=== PATIENT | female | born 1960 | race Caucasian/White ===

== ENCOUNTER → 2017-01-19 | Outpatient (CLI) | payer OTHER ==
[~2017-01-19] MED LIST: ACET-1311 PO; ATV5 PO; GUAI100L; SUMA50TA15 PO; THROLOZ41; TMF75 PO; excedrin migraine PO
[2017-01-19 10:50] LABS: HEMATOCRIT 40.1 % (37-47); MEAN CELL VOLUME 88.3 fL (80-100); MEAN CORPUSCULAR HEMOGLOBIN 30.2 pg (25-34); MEAN CORPUSCULAR HGB CONC 34.2 g/dl (32-36); MEAN PLATELET VOLUME 10.8 fL (7.4-10.4); PLATELET COUNT 197 K/uL (130-400); RED BLOOD COUNT 4.54 M/uL (4.2-5.4); WHITE BLOOD COUNT 4.36 K/uL (4.8-10.8)
[2017-01-19 11:16] LABS: BLOOD UREA NITROGEN 23 mg/dl (7-18); BUN/CREATININE RATIO 30.2 (10-20); CALCIUM 9.1 mg/dl (8.5-10.1); CARBON DIOXIDE 32 mmol/L (21-32); CHLORIDE 105 mmol/L (98-107); CREATININE 0.77 mg/dl (0.60-1.20); GLUCOSE 97 mg/dl (70-99); POTASSIUM 4.2 mmol/L (3.5-5.1); SODIUM 143 mmol/L (136-145)
== END ==
LOC: C.LABBC 08:47
PROVIDERS: ATTEND Family Medicine
DX: R42 Dizziness and giddiness (principal); I10 Essential (primary) hypertension

== ENCOUNTER → 2017-04-25 | Outpatient (CLI) | payer OTHER | END | disposition home or self-care (01) | LOC: C.LAB1850 16:15 | PROVIDERS: ATTEND Obstetrics & Gynecology | DX: N92.0 Excessive and frequent menstruation with regular cycle (principal) ==

== ENCOUNTER → 2017-04-25 | Outpatient (CLI) | payer OTHER | END | disposition home or self-care (01) | LOC: C.PAPS 08:06 | PROVIDERS: ATTEND Obstetrics & Gynecology | DX: Z01.419 Encounter for gynecological examination (general) (routine) without abnormal findings (principal) ==

== ENCOUNTER → 2017-07-24 | Outpatient (CLI) | payer OTHER ==
[2017-07-24 11:19] LABS: BLOOD UREA NITROGEN 22 mg/dl (7-18); BUN/CREATININE RATIO 26.5 (10-20); CALCIUM 9.2 mg/dl (8.5-10.1); CARBON DIOXIDE 31 mmol/L (21-32); CHLORIDE 106 mmol/L (98-107); CREATININE 0.83 mg/dl (0.60-1.20); GLUCOSE 88 mg/dl (70-99); POTASSIUM 3.6 mmol/L (3.5-5.1); SODIUM 144 mmol/L (136-145)
[2017-07-24 11:24] LABS: CHOLESTEROL 211 mg/dl (0-200); CHOLESTEROL/HDL RATIO 3.3; HDL CHOLESTEROL 64 mg/dl; LDL CHOLESTEROL CALCULATED 127 mg/dl; TRIGLYCERIDES 98 mg/dl (0-150); VERY LOW DENSITY LIPOPROT CALC 20 mg/dl
== END | disposition home or self-care (01) ==
LOC: C.LAB1850 10:01
PROVIDERS: ATTEND Family Medicine
DX: Z13.220 Encounter for screening for lipoid disorders (principal); I10 Essential (primary) hypertension

== ENCOUNTER → 2017-08-09 | Outpatient (CLI) | payer OTHER ==
--- NOTE | 2017-08-12 12:36 | MAMMOGRAPHY REPORT ---
BILATERAL DIGITAL SCREENING MAMMOGRAM TOMOSYNTHESIS WITH CAD: 08/09/2017 CLINICAL HISTORY: Routine screening. Patient has no complaints. TECHNIQUE: Breast tomosynthesis in addition to standard 2D mammography was performed. Current study was also evaluated with a Computer Aided Detection (CAD) system. COMPARISON: Comparison is made to exams dated: 07/07/2008, 04/09/2014 mammogram, 11/12/2012 mammogram, mammogram, and 04/13/2015 mammogram - [facility]. BREAST COMPOSITION: There are scattered areas of fibroglandular density in both breasts. FINDINGS: No suspicious masses, calcifications, or areas of architectural distortion are noted in ei ther breast. There has been no significant interval change compared to prior exams. Nodularity in th e left lateral breast middle depth is stable compared to prior exams including the 2013 exam. IMPRESSION: ACR BI-RADS CATEGORY 2: BENIGN There is no mammographic evidence of malignancy. A 1 year screening mammogram is recommended. The pa tient will receive written notification of the results. Approximately 10% of breast cancers are not detected with mammography. A negative mammographic report should not delay biopsy if a clinically suggestive mass is present. Alexsandra Little M.D. /:08/09/2017 15:17:15 Thread Cutter: Anamaria MCIHEL(Jeanette)(Jeanne)(ANDRES), [facility] letter sent: Normal 1/2 BI-RADS Code: ACR BI-RADS Category 2: Benign
== END | disposition home or self-care (01) ==
LOC: C.MAMM 09:04
PROVIDERS: ATTEND Family Medicine
DX: Z12.31 Encounter for screening mammogram for malignant neoplasm of breast (principal)

== ENCOUNTER 2018-03-25 08:39 | Emergency (ER) | payer OTHER ==
[~2018-03-25] VITALS: Ht 157.5 cm; Wt 56.2 kg
[2018-03-25 08:45] VITALS: TEMP 36.8; Ht 157.5 cm; Wt 56.2 kg
[2018-03-25] MEDS ORDERED: ONDANSETRON INJ 2 MG/ML 2 ML VIAL IV STA (08:57)
[2018-03-25] MEDS ORDERED: ALBUTEROL HFA 8 GM INHALER INH STA (08:57)
[2018-03-25] MEDS ORDERED: HYDROCODONE/HOMATROPINE SYRUP 5MG/1.5MG 5ML UDP PO STA ×2 (08:57→09:36)
[2018-03-25] MEDS ORDERED: ALBUTEROL 0.083% NEBU SOLN 3 ML VIAL INH STA (08:57)
[2018-03-25] MEDS ORDERED: KETOROLAC TROMETHAMINE 30 MG/ML VIAL IV STA (08:57)
[2018-03-25] MEDS ORDERED: SODIUM CHLORIDE 0.9% 1000ML 1,000 ML IV STA (08:57)
[2018-03-25] MEDS ORDERED: METHYLPREDNISOLONE 125 MG VIAL IV STA (08:57)
--- NOTE | 2018-03-25 08:57 | EMERGENCY ROOM VISIT NOTE ---
History Report prepared by Rula: Fredi Mcintyre Under the Supervision of: Dr. Thong Gallegos M.D. First contact with patient: 08:50 Chief Complaint: COUGH Stated Complaint: COUGH,SORE THROAT,ACHY BODY History of Present Illness The patient is a 57 year old female who presents to the Emergency Room with complaints of a persistent cough that she has been experiencing for the past 5 days. She is also complaining of diffuse body aches. The patient did visit with her primary care office yesterday who prescribed Tessalon Pearls. She notes that she is experiencing some chest pain secondary to the cough. Her PCP visit resulted a negative strep test. Source of History: patient Onset: 5 days Position: chest Quality: other (Cough) Timing: other (Persistent) Associated Symptoms: + chest pain Review of Systems See HPI for pertinent positives & negatives. A total of 10 systems reviewed and were otherwise negative. Past Medical & Surgical Medical Problems: (1) Migraine (2) Respiratory failure, acute Surgical Problems: (1) H/O colonoscopy (2) H/O tubal ligation Family History Diabetes mellitus FHx: cancer FHx: heart disease Social History Smoking Status: Never Smoker Alcohol Use: occasionally Marital Status: Housing Status: lives with family Occupation Status: unemployed Current/Historical Medications Scheduled Azithromycin (Zithromax), 250 MG PO DAILY Benzonatate (Tessalon Perles), 200 MG PO TID Gabapentin (Neurontin), 100 MG PO BID Hydrochlorothiazide (Hydrochlorothiazide), 25 MG PO DAILY Lorazepam (Ativan), 1 MG PO HS Prednisone (Prednisone Tab), 0 PO DAILY Sumatriptan Succinate (Imitrex), 50 MG PO PRN Scheduled PRN Hydrocodone W/ Homatropine (Hycodan 5/1.5MG 5 Ml), 5 ML PO HS PRN for Cough Allergies Coded Allergies: Iodinated Diagnostic Agents (Verified Allergy, Unknown, Unknown, 03/25/18) Physical Exam Vital Signs Date Time Temp Pulse Resp B/P (MAP) Pulse Ox O2 Delivery O2 Flow Rate FiO2 03/25/18 11:45 71 20 99/55 94 03/25/18 10:30 96 Nasal Cannula 2.0 03/25/18 10:06 94 Room Air 03/25/18 09:57 80 18 111/64 96 03/25/18 09:41 73 03/25/18 09:40 94 Room Air 03/25/18 09:40 94 Room Air 03/25/18 08:45 36.8 68 20 142/84 95 Room Air Physical Exam GENERAL: Awake, alert, well-appearing, in no acute distress HENT: Normocephalic, atraumatic. Throat is injected. EYES: Normal conjunctiva. Sclera non-icteric. NECK: Supple. No nuchal rigidity. FROM. No JVD. RESPIRATORY: Clear to auscultation. CARDIAC: Regular rate, normal rhythm. Extremities warm and well perfused. Pulses equal. ABDOMEN: Soft, non-distended. No tenderness to palpation. No rebound or guarding. No masses. RECTAL: Deferred. MUSCULOSKELETAL: Chest examination reveals no tenderness. The back is symmetrical on inspection without obvious abnormality. There is no CVA tenderness to palpation. No joint edema. LOWER EXTREMITIES: Calves are equal size bilaterally and non-tender. No edema. No discoloration. NEURO: Normal sensorium. No sensory or motor deficits noted. SKIN: No rash or jaundice noted. Medical Decision & Procedures ER Provider Diagnostic Interpretation: Radiology results as stated below per my review and radiologist interpretation: CHEST ONE VIEW PORTABLE HISTORY: Atypical CHEST PAIN COMPARISON: Chest 03/01/2016. FINDINGS: The lungs are clear. Cardiac silhouette is normal in size. No pleural effusions. No pneumothorax. IMPRESSION: No acute process. Electronically signed by: Shad Garcia M.D. 03/25/2018 9:18 AM Dictated Date/Time: 03/25/2018 9:16 AM Laboratory Results 03/25/18 09:18 Red Blood Count 4.60, Mean Corpuscular Volume 88.3, Mean Corpuscular Hemoglobin 30.2, Mean Corpuscular Hemoglobin Concent 34.2, Mean Platelet Volume 10.0, Neutrophils (%) (Auto) 71.8, Lymphocytes (%) (Auto) 18.8, Monocytes (%) (Auto) 7.5, Eosinophils (%) (Auto) 1.5, Basophils (%) (Auto) 0.1, Neutrophils # (Auto) 5.10, Lymphocytes # (Auto) 1.34, Monocytes # (Auto) 0.53, Eosinophils # (Auto) 0.11, Basophils # (Auto) 0.01 03/25/18 09:18 Test 03/25/18 09:18 03/25/18 09:40 03/25/18 10:30 White Blood Count 7.11 K/uL (4.8-10.8) Red Blood Count 4.60 M/uL (4.2-5.4) Hemoglobin 13.9 g/dL (12.0-16.0) Hematocrit 40.6 % (37-47) Mean Corpuscular Volume 88.3 fL (80-100) Mean Corpuscular Hemoglobin 30.2 pg (25-34) Mean Corpuscular Hemoglobin Concent 34.2 g/dl (32-36) Platelet Count 204 K/uL (130-400) Mean Platelet Volume 10.0 fL (7.4-10.4) Neutrophils (%) (Auto) 71.8 % Lymphocytes (%) (Auto) 18.8 % Monocytes (%) (Auto) 7.5 % Eosinophils (%) (Auto) 1.5 % Basophils (%) (Auto) 0.1 % Neutrophils # (Auto) 5.10 K/uL (1.4-6.5) Lymphocytes # (Auto) 1.34 K/uL (1.2-3.4) Monocytes # (Auto) 0.53 K/uL (0.11-0.59) Eosinophils # (Auto) 0.11 K/uL (0-0.5) Basophils # (Auto) 0.01 K/uL (0-0.2) RDW Standard Deviation 42.4 fL (36.4-46.3) RDW Coefficient of Variation 13.1 % (11.5-14.5) Immature Granulocyte % (Auto) 0.3 % Immature Granulocyte # (Auto) 0.02 K/uL (0.00-0.02) Anion Gap 6.0 mmol/L (3-11) Est Creatinine Clear Calc Drug Dose 74.2 ml/min Estimated GFR () 113.9 Estimated GFR (Non- 98.3 BUN/Creatinine Ratio 28.4 (10-20) Calcium Level 8.4 mg/dl (8.5-10.1) Total Bilirubin 0.5 mg/dl (0.2-1) Direct Bilirubin 0.1 mg/dl (0-0.2) Aspartate Amino Transf (AST/SGOT) 19 U/L (15-37) Alanine Aminotransferase (ALT/SGPT) 25 U/L (12-78) Alkaline Phosphatase 78 U/L (45-117) Total Creatine Kinase 105 U/L (26-192) Creatine Kinase MB 1.9 ng/ml (0.5-3.6) Creatine Kinase MB Ratio 0.0 (0-3.0) Troponin I < 0.015 ng/ml (0-0.045) Total Protein 6.8 gm/dl (6.4-8.2) Albumin 3.4 gm/dl (3.4-5.0) Lipase 185 U/L (73-393) Influenza Type A Antigen Neg for Influ A (NEG) Influenza Type B Antigen Neg for Influ B (NEG) Labs reviewed by ED physician. Medications Administered Medications (Trade) Dose Ordered Sig/Carlo Route Start Time Stop Time Status Last Admin Dose Admin Albuterol Sulfate (Ventolin 0.083% 2.5MG/3ML Neb) 2.5 mg NOW STAT INH 03/25/18 08:57 03/25/18 09:00 DC 03/25/18 09:31 2.5 MG Hydrocodone Bit/ Homatropine Methylb (Hycodan Syrup) 5 ml NOW STAT PO 03/25/18 08:57 03/25/18 09:00 DC 03/25/18 09:34 5 ML Albuterol (Ventolin Hfa Inhaler) 2 puffs NOW STAT INH 03/25/18 08:57 03/25/18 09:00 DC 03/25/18 09:32 2 PUFFS Methylprednisolone Sodium Succinate (Solu-Medrol IV) 125 mg NOW STAT IV 03/25/18 08:57 03/25/18 09:00 DC 03/25/18 09:32 125 MG Ketorolac Tromethamine (Toradol Inj) 30 mg NOW STAT IV 03/25/18 08:57 03/25/18 09:00 DC 03/25/18 09:34 30 MG Ondansetron HCl (Zofran Inj) 4 mg NOW STAT IV 03/25/18 08:57 03/25/18 09:00 DC 03/25/18 09:34 4 MG Sodium Chloride 1,000 ml @ 999 mls/hr Q1H1M STAT IV 03/25/18 08:57 03/25/18 09:57 DC 03/25/18 09:30 999 MLS/HR Azithromycin (Zithromax Tab) 500 mg NOW ONCE PO 03/25/18 09:45 03/25/18 09:46 DC 03/25/18 09:55 500 MG Hydrocodone Bit/ Homatropine Methylb (Hycodan Syrup) 5 ml NOW STAT PO 03/25/18 09:36 03/25/18 09:38 DC 03/25/18 09:55 5 ML ECG Per My Interpretation Indication: chest pain, SOB/dyspnea (COUGH) Rate (beats per minute): 60 Rhythm: normal sinus Findings: other (No KATE/STD) ED Course 0852: Past medical records reviewed. The patient was evaluated in room B6. A complete history and physical examination was performed. 0857: Ordered Sodium Chloride 1000 mL @ 999 mL/hr IV, Zofran 4 mg IV, Toradol 30 mg IV, Solu-Medrol 125 mg IV, Albuterol 2 puffs INH, Hycodan Syrup 5 mL PO, Albuterol Sulfate 2.5 mg INH. 0936: Ordered Hydrocodone Bit 5 mL PO. 0945: Ordered Azithromycin 500 mg PO. 1144: Upon reexamination the patient is resting in bed. I discussed results and treatment plan with the patient. She verbalizes agreement and understanding. The patient is ready for discharge. Medical Decision Differential diagnosis: Etiologies such as infections, reactive airway disease, pneumonia, pneumothorax , COPD, CHF, cardiac ischemia, pulmonary embolism, musculoskeletal, gastrointestinal, as well as others were entertained. This is a 57-year-old female presents emergency department with cough. The patient does have heavy coughing. She was given a breathing treatment here in the emergency department and started on Solu-Medrol. This resulted in much improvement in patient's symptoms. She does not have an elevation in her white blood cell count on her chest x-ray shows no evidence of pneumonia. She was started on Z-Solis and will follow up with her primary care physician. Patient was also given an albuterol inhaler to use twice every 6 hours. Patient and were in agreement with the treatment plan. Patient was also given Hycodan for the cough. Blood Pressure Screening Patient's blood pressure: Elevated blood pressure Impression Primary Impression: Acute bronchitis Scribe Attestation The scribe's documentation has been prepared under my direction and personally reviewed by me in its entirety. I confirm that the note above accurately reflects all work, treatment, procedures, and medical decision making performed by me. Departure Information Dispostion Home / Self-Care Prescriptions Hydrocodone W/ Homatropine (HYCODAN 5/1.5MG 5 ML) 1 Syp Syp 5 ML PO HS Y for Cough, #120 ML Prov: Thong Gallegos MD 03/25/18 Azithromycin (ZITHROMAX) 250 Mg Tab 250 MG PO DAILY, #4 TAB Prov: Thong Gallegos MD 03/25/18 Prednisone (Prednisone Tab) 20 Mg Tab 0 PO DAILY, #7 TAB 2 TABS DAILY FOR 2 DAYS, THEN 1 TAB DAILY FOR 2 DAYS, THEN 1/2 TAB DAILY FOR 2 DAYS. Prov: Thong Gallegos MD 03/25/18 Referrals Dasia Medrano MD (PCP) Forms HOME CARE DOCUMENTATION FORM, IMPORTANT VISIT INFORMATION Patient Instructions My [facility] Additional Instructions Use inhaler twice every 6 hours You received narcotic or benzodiazepene medication while in the emergency room today. This is an addictive medication that may cause drowziness as well as constipation. Do not drive, operate heavy machinery, or drink alcohol under the influence of this medication. You have been examined and treated today on an emergency basis only. This is not a substitute for, or an effort to provide, complete comprehensive medical care. It is impossible to recognize and treat all injuries or illnesses in a single emergency department visit. It is therefore important that you follow up closely with Dr Medrano. Call as soon as possible for an appointment. Thank you for your time and consideration. I look forward to speaking with you again soon. Please don't hesitate to call us if you have any questions. Problem Qualifiers Primary Impression: Acute bronchitis Bronchitis organism: unspecified organism Qualified Codes: J20.9 - Acute bronchitis, unspecified
--- NOTE | 2018-03-25 09:19 | DIAGNOSTIC IMAGING REPORT ---
CHEST ONE VIEW PORTABLE HISTORY: Atypical CHEST PAIN COMPARISON: Chest 03/01/2016. FINDINGS: The lungs are clear. Cardiac silhouette is normal in size. No pleural effusions. No pneumothorax. IMPRESSION: No acute process. Electronically signed by: Shad Garcia M.D. 03/25/2018 9:18 AM Dictated Date/Time: 03/25/2018 9:16 AM
[2018-03-25 09:30] LABS: BASO % 0.1 %; BASO ABS # 0.01 K/uL (0-0.2); EOS % 1.5 %; EOS ABS # 0.11 K/uL (0-0.5); HEMATOCRIT 40.6 % (37-47); HEMOGLOBIN 13.9 g/dL (12.0-16.0); IG# 0.02 K/uL (0.00-0.02); LYMPH % 18.8 %; LYMPH ABS # 1.34 K/uL (1.2-3.4); MEAN CELL VOLUME 88.3 fL (80-100); MEAN CORPUSCULAR HEMOGLOBIN 30.2 pg (25-34); MEAN CORPUSCULAR HGB CONC 34.2 g/dl (32-36); MONO % 7.5 %; MONO ABS # 0.53 K/uL (0.11-0.59); NEUT % 71.8 %; PLATELET COUNT 204 K/uL (130-400); RED CELL DISTRIBUTION WIDTH CV 13.1 % (11.5-14.5); RED CELL DISTRIBUTION WIDTH SD 42.4 fL (36.4-46.3); WHITE BLOOD COUNT 7.11 K/uL (4.8-10.8)
[2018-03-25] MEDS ORDERED: GABA-112 PO (09:31)
[2018-03-25] MEDS ORDERED: ATV/1 PO (09:31)
[2018-03-25] MEDS ORDERED: BENZ200C59 PO (09:31)
[2018-03-25] MEDS ORDERED: HYDR25TA5 PO (09:36)
[2018-03-25] MEDS ORDERED: AZITHROMYCIN 250 MG TAB PO ONE (09:45)
[2018-03-25 10:10] LABS: GLUCOSE 93 mg/dl (70-99)
[2018-03-25 10:11] LABS: BLOOD UREA NITROGEN 19 mg/dl (7-18); CREATININE 0.67 mg/dl (0.60-1.20)
[2018-03-25 10:14] LABS: CALCIUM 8.4 mg/dl (8.5-10.1); CARBON DIOXIDE 29 mmol/L (21-32); POTASSIUM 3.5 mmol/L (3.5-5.1); SODIUM 142 mmol/L (136-145); TOTAL PROTEIN 6.8 gm/dl (6.4-8.2)
[2018-03-25 10:15] LABS: ALBUMIN 3.4 gm/dl (3.4-5.0); ALKALINE PHOSPHATASE 78 U/L (45-117); ALT/SGPT 25 U/L (12-78); AST/SGOT 19 U/L (15-37); CKMB 1.9 ng/ml (0.5-3.6); LIPASE 185 U/L (73-393)
[2018-03-25 10:20] LABS: INFLUENZA B ANTIGEN Neg for Influ B (NEG)
[2018-03-25 10:30] VITALS: O2SAT 96
[2018-03-25] MEDS ORDERED: HYDR5SYP11 PO (11:30)
[2018-03-25] MEDS ORDERED: AZIT-60 PO (11:30)
[2018-03-25] MEDS ORDERED: PRED20TA2 PO (11:30)
[2018-03-25 11:45] VITALS: BP 99/55; PULSE 71; O2SAT 94
--- NOTE | 2018-03-25 11:46 | Pharmacy Progress Note ---
ED Pharmacist Progress Note Date of Service: March 25, 2018. Received call from outpatient pharmacist (Dorinda) requesting clarification on quantity dispensed on hydrocodone/homatropine. Requested decreasing quantity dispensed to 7 day supply (7 days x5 mL/day = 35 mL). I spoke with Dr. Gallegos , who authorized decreasing qty dispensed to 7 days supply. I counseled that Dorinda could decrease to dispensing 35 mL.
== END 2018-03-25 11:46 | disposition home or self-care (01) ==
LOC: C.EDB 08:40
DX: J20.9 Acute bronchitis, unspecified (principal); Z98.51 Tubal ligation status; Z83.3 Family history of diabetes mellitus; Z80.9 Family history of malignant neoplasm, unspecified; Z79.899 Other long term (current) drug therapy; Z91.041 Radiographic dye allergy status

== ENCOUNTER 2020-09-21 11:20 | Inpatient (IN) ==
[2020-09-21] MEDS ORDERED: SODIUM CHLORIDE 0.9% 1000ML 2,000 ML IV ONE (11:47)
[2020-09-21] MEDS ORDERED: ACETAMINOPHEN 1,000 MG/100 ML VIAL IV STA (11:47)
[2020-09-21] MEDS ORDERED: KETOROLAC TROMETHAMINE 15 MG/ML VIAL IV STA ×2 (11:47→13:19)
[2020-09-21] MEDS ORDERED: MoRPHine SULFATE 10 MG/ML CARP/VIAL IV STA (11:47)
[2020-09-21] MEDS ORDERED: ONDANSETRON INJ 2 MG/ML 2 ML VIAL IV STA (11:50)
[2020-09-21 12:08] LABS: Basophils # (auto) 0.01 K/uL (0-0.2); Basophils % (auto) 0.1 %; Hematocrit (blood only) 41.5 % (37-47); Hemoglobin 13.4 g/dL (12.0-16.0); Immature Granulocytes # (auto) 0.04 K/uL (0.00-0.02); Immature Granulocytes % (auto) 0.3 %; Lymphocytes # (auto) 0.23 K/uL (1.2-3.4); Lymphocytes % (auto) 1.9 %; Mean Corpuscular Hemoglobin 29.8 pg (25-34); Mean Corpuscular Hgb Conc 32.3 g/dL (32-36); Mean Corpuscular Volume 92.2 fL (80-100); Mean Platelet Volume 10.2 fL (7.4-10.4); Monocytes # (auto) 0.69 K/uL (0.11-0.59); Monocytes % (auto) 5.7 %; Neutrophils # (auto) 11.21 K/uL (1.4-6.5); Platelet Count 193 K/uL (130-400); RDW Coefficient of Variation 13.6 % (11.5-14.5); RDW Standard Deviation 46.1 fL (36.4-46.3); White Blood Count 12.18 K/uL (4.8-10.8)
[2020-09-21 12:16] LABS: Appearance Urine Clear (Clear); Bacteria Urine Automated Negative (Negative); Bilirubin Urine Negative (Negative); Blood Urine Negative (Negative); Color Urine Yellow; Epithelial Cell Urine Auto >30 /lpf (0-5); Glucose Urine UA Negative (Negative); Ketones Urine 1+ (Negative); Leukocyte Esterase Urine 1+ (Negative); Nitrite Urine Negative (Negative); Specific Gravity Urine 1.022 (1.000-1.030); Urobilinogen Urine Negative (Negative)
[2020-09-21 12:18] LABS: Protein Urine Negative (Negative); Sulfosalicylic Acid Urine Negative (Negative)
[2020-09-21 12:27] LABS: Albumin Level 3.8 gm/dl (3.4-5.0); BUN Creatinine Ratio 19.5 (10-20); Bilirubin Direct 0.2 mg/dl (0-0.2); Calcium 9.2 mg/dl (8.5-10.1); Creatinine Clr Calc Pharmacy 31.5 ml/min; Est GFR (Non-African American) 37.1; Magnesium 2.1 mg/dl (1.8-2.4)
[2020-09-21 12:30] LABS: Albumin Globulin Ratio 1.1 (0.9-2); Bilirubin,Total 0.9 mg/dl (0.2-1); Globulin 3.5 gm/dl (2.5-4.0); Total Protein 7.3 gm/dl (6.4-8.2)
--- NOTE | 2020-09-21 13:04 | CT Scan Report ---
CT SCAN OF THE ABDOMEN AND PELVIS WITHOUT IV CONTRAST CLINICAL HISTORY: Right flank pain. COMPARISON STUDY: Abdominal CT dated 01/22/2012. TECHNIQUE: CT scan of the abdomen and pelvis is performed from the lung bases to the proximal femora. Images are reviewed in the axial, sagittal, and coronal planes. IV contrast was not administered for this examination as per the referring clinician. A dose lowering technique was utilized adhering to the principles of ALARA. CT DOSE: 638.64 mGycm FINDINGS: Lung bases: The heart is normal in size and without pericardial effusion. The lung bases are clear no ting bibasilar dependent atelectasis. There is a small hiatal hernia. Liver: The unenhanced liver is normal in size, contour, and attenuation. There is no intrahepatic jarek iary ductal dilatation. Scattered hepatic cysts measure up to 1.4 cm. Gallbladder: Unremarkable. Spleen: Normal in size and attenuation. Pancreas: Unremarkable. Adrenal glands: Unremarkable. Kidneys: The unenhanced kidneys are normal in size. There is an 8 mm obstructing calculus in the righ t proximal ureter at the level of L3-L4 as seen on image #194. This causes moderate to severe right h ydroureteronephrosis. There is associated right-sided perinephric stranding and fluid. There are leas t 3 additional nonobstructing right renal calculi which measure up to 3 mm. There are at least 10 non obstructing left renal calculi measuring up to 4 mm. There is no left-sided hydronephrosis. A 1.3 cm angiomyolipoma is seen in the interpolar left kidney on image #160. There is no evidence of contour d eforming renal mass lesion. Abdominal vasculature: The abdominal aorta is normal in course and caliber noting mild to moderate at herosclerotic calcification. Bowel: There is mild colonic diverticulosis without CT evidence of acute diverticulitis. No bowel obs truction is identified. Moderate fecal retention is seen throughout the colon. The appendix is well- visualized and normal. Peritoneum: There is no intraperitoneal free air or abdominal ascites. There is a fat-containing umbi lical hernia. Lymphadenopathy: None. Pelvic viscera: The bladder, uterus, and adnexa are normal as visualized. There is trace free fluid i n the cul-de-sac. Skeletal structures: The skeletal structures are osteopenic. No lytic or blastic lesions are seen. IMPRESSION: 1. There is an 8 mm obstructing calculus in the right proximal ureter. This causes moderate to severe right-sided hydroureteronephrosis. 2. Additional bilateral nonobstructing renal calculi as above. 3. A 1.3 cm angiomyolipoma is noted in the left kidney. 4. Trace nonspecific free fluid is seen in the cul-de-sac. 5. Additional findings as above. ACT 112: Negative or not required by law. Electronically signed by: Gamaliel Townsend M.D. 09/21/2020 1:02 PM
[2020-09-21] MEDS ORDERED: TAMSULOSIN HCL 0.4 MG CAP PO ONE (13:19)
[2020-09-21] MEDS ORDERED: SODIUM CHLORIDE 0.9% 1000ML 1,000 ML IV ONE (13:31)
--- NOTE | 2020-09-21 13:55 | Emergency Department Note ---
Impression & Plan Ureterolithiasis, Hydronephrosis due to obstruction of ureter, Acute right flank pain, Acute renal insufficiency, Dehydration ED Provider Note NAME: SUSANA ÁLVAREZ AGE: 60 SEX: F ARRIVES VIA: Walk-In INFORMANT: Patient ED PROVIDER(S): Francisco Davis MD CHIEF COMPLAINT: Right flank pain PLAN: Disposition: Admit MEDICAL DECISION MAKING: The patient is a pleasant 60 y/o woman with a pmhx of migraines, small fiber neuropathy, kidney stones who presents to the emergency department with acute worsening of right flank pain today that initially began several days ago and gradually worsened. Patient was seen by pcp and referred to the Emergency department. She reports associated n/v. Denies diarrhea, fever, cough, congestion, dysuria, gross blood in urine. On arrival the patient is uncomfortable but in NAD, AFVSS. She appears clinically dry. She exhibits mild right flank/abdominal tenderness without guarding or rebound. WBC 12.18K. H/H, platelets wnl. Chemistry without acidosis. Cr 1.5 without prior elevations. Otherwise, electrolytes and LFTs and electrolytes unremarkable. UA WBC and RBCs without bacteria and with epithelial cells. CT demonstrates 8 mm obstructing calculus in the right proximal ureter with associated moderate to severe right-sided hydroureteronephrosis. Patient did feel improvement after IVF hydration and analgesia however still quite uncomfortable. Given 8mm stone that is proximal, with lower likelihood of passage we agreed to admit for pain control and possible urology consultation. Will treat with CTX out of abundance of caution, though, infected stone thought to be less likely. Case was discussed with [place]. [place], [facility] [place], who will evaluate the patient for admission. Triage Nursing notes reviewed and agree them. Prior medical records reviewed Vital Signs: reviewed and remarkable for no significant abnormalities Differential diagnosis: Renal colic, UTI, appendicitis, diverticulitis, mesenteric ischemia, aortic pathology, infections, inflammatory bowel disease, PUD, biliary pathology, as well as other pathologies. ER treatment provided: See below. Diagnostics interpreted by me: Cardiac Monitoring: An order for continuous cardiac monitoring was placed and demonstrated NSR, 90 bpm, no ectopy. Laboratory studies: See below Imaging studies: CT SCAN OF THE ABDOMEN AND PELVIS WITHOUT IV CONTRAST CLINICAL HISTORY: Right flank pain. COMPARISON STUDY: Abdominal CT dated 01/22/2012. TECHNIQUE: CT scan of the abdomen and pelvis is performed from the lung bases to the proximal femora. Images are reviewed in the axial, sagittal, and coronal planes. IV contrast was not administered for this examination as per the referring clinician. A dose lowering technique was utilized adhering to the principles of ALARA. CT DOSE: 638.64 mGycm FINDINGS: Lung bases: The heart is normal in size and without pericardial effusion. The lung bases are clear noting bibasilar dependent atelectasis. There is a small hiatal hernia. Liver: The unenhanced liver is normal in size, contour, and attenuation. There is no intrahepatic biliary ductal dilatation. Scattered hepatic cysts measure up to 1.4 cm. Gallbladder: Unremarkable. Spleen: Normal in size and attenuation. Pancreas: Unremarkable. Adrenal glands: Unremarkable. Kidneys: The unenhanced kidneys are normal in size. There is an 8 mm obstructing calculus in the right proximal ureter at the level of L3-L4 as seen on image # 194. This causes moderate to severe right hydroureteronephrosis. There is associated right-sided perinephric stranding and fluid. There are least 3 additional nonobstructing right renal calculi which measure up to 3 mm. There are at least 10 nonobstructing left renal calculi measuring up to 4 mm. There is no left-sided hydronephrosis. A 1.3 cm angiomyolipoma is seen in the interpolar left kidney on image #160. There is no evidence of contour deforming renal mass lesion. Abdominal vasculature: The abdominal aorta is normal in course and caliber noting mild to moderate atherosclerotic calcification. Bowel: There is mild colonic diverticulosis without CT evidence of acute diverticulitis. No bowel obstruction is identified. Moderate fecal retention is seen throughout the colon. The appendix is well-visualized and normal. Peritoneum: There is no intraperitoneal free air or abdominal ascites. There is a fat-containing umbilical hernia. Lymphadenopathy: None. Pelvic viscera: The bladder, uterus, and adnexa are normal as visualized. There is trace free fluid in the cul-de-sac. Skeletal structures: The skeletal structures are osteopenic. No lytic or blastic lesions are seen. IMPRESSION: 1. There is an 8 mm obstructing calculus in the right proximal ureter. This causes moderate to severe right-sided hydroureteronephrosis. 2. Additional bilateral nonobstructing renal calculi as above. 3. A 1.3 cm angiomyolipoma is noted in the left kidney. 4. Trace nonspecific free fluid is seen in the cul-de-sac. 5. Additional findings as above. Consultation(s): Case was discussed with Dr. Fulton, [facility] [place], who will evaluate the patient for admission. HPI: The patient is a pleasant 60 y/o woman with a pmhx of migraines, small fiber neuropathy, kidney stones who presents to the emergency department with acute worsening of right flank pain today that initially began several days ago and gradually worsened. Patient was seen by pcp and referred to the Emergency department. She reports associated n/v. Denies diarrhea, fever, cough, congestion, dysuria, gross blood in urine. ROS: See above HPI for pertinent positives & negatives. A total of 10 systems reviewed and were otherwise negative. PAST MEDICAL HISTORY:See below. PAST SURGICAL HISTORY:See below. FAMILY HISTORY:See below. SOCIAL HISTORY:See below. HOME MEDICATIONS:See below. ALLERGIES:See below. VITALS:See Below PHYSICAL EXAMINATION: GENERAL: Awake, alert, uncomfortable-appearing, in no distress HENT: Normocephalic, atraumatic. Oropharynx with dry mucous membranes and otherwise unremarkable. EYES: Normal conjunctiva. Sclera non-icteric. NECK: Supple. No nuchal rigidity. FROM. No JVD. RESPIRATORY: Clear to auscultation. CARDIAC: Regular rate, normal rhythm. Extremities warm and well perfused. Pulses equal. ABDOMEN: Soft, non-distended. Mild right flank/abdominal tenderness to palpation. No rebound or guarding. No masses. RECTAL: Deferred. MUSCULOSKELETAL: Chest examination reveals no tenderness. The back is symmetrical on inspection without obvious abnormality. There is no CVA tenderness to palpation. No joint edema. LOWER EXTREMITIES: Calves are equal size bilaterally and non-tender. No edema. No discoloration. NEURO: Normal sensorium. No sensory or motor deficits noted. SKIN: No rash or jaundice noted. Francisco Davis MD Past Med/Surg History Medical History Anxiety External hemorrhoids Flank pain Foot pain Hypertension Migraine Surgical History H/O oral surgery S/P tonsillectomy S/P tubal ligation S/P wisdom tooth extraction Family History Mother Bone cancer Hypertension Father Hypertension Lymphoma Aunt Ovarian cancer Grandmother (Maternal) Myocardial infarction Grandmother (Paternal) Myocardial infarction Denies family history of Prostate cancer Breast cancer Colorectal cancer Social History Smoking Status: Never smoker Second Hand Exposure: No; Do You Dip or Chew Tobacco: No; Hx Alcohol Use: No Hx Substance Use: No Preferred Language: Welsh Communication Ability: Effective Tire Duster Required: Yes Beliefs That Will Affect Care: None marital status: Current Living Situation: Spouse current occupational status: retired Other Information That Helps Us Care for You: No Feels Safe at Home: Yes Safety Concerns: Feels Safe At This Time Childhood Exposure to Second-Hand Smoke: No Dental Care, Regularly: Yes Physical Activity Frequency: 3-4 Times per Week Seatbelt Use: always Sunscreen Use: No Assistive Devices: Glasses Assistive Devices Comment: Reading glasses- Not with her Allergies Allergies Allergy/AdvReac Type Severity Reaction Status Date / Time Iodinated Contrast Media Allergy Unknown Unknown Verified 09/21/20 13:19 Home Meds Home Medications Medication Instructions Recorded Confirmed lorazepam 1 mg PO HS PRN 09/21/20 09/21/20 sumatriptan succinate 50 mg PO UD PRN MDD 200 mg/day 09/21/20 09/21/20 Previous Rx's Medication Instructions Recorded gabapentin 300 mg capsule 600 mg PO TID 90 Days #540 cap 05/20/20 hydrochlorothiazide 25 mg tablet 25 mg PO DAILY #90 tab 08/22/20 Results & Data (ED) Vital Signs Vital Signs - 24 hr 09/21/20 11:28 09/21/20 12:13 09/21/20 12:17 Temperature 36.6 C Temperature Source Oral Pulse Rate 76 66 Pulse Rate from SpO2 Sensor 66 Respiratory Rate 18 15 Blood Pressure 118/76 121/67 Blood Pressure Mean 90 77 Pulse Oximetry 99 99 100 Oxygen Delivery Method Room Air Room Air Room Air Oxygen Flow Rate Sepsis Recent Fever Within 48 Hours No Sepsis New/Unexplained Change in Mental Status No Sepsis Action Taken by Nursing No Action Required 09/21/20 12:20 09/21/20 12:45 09/21/20 13:00 Temperature Temperature Source Pulse Rate 71 69 69 Pulse Rate from SpO2 Sensor 71 69 69 Respiratory Rate 20 18 14 Blood Pressure 97/62 L Blood Pressure Mean 69 Pulse Oximetry 98 95 100 Oxygen Delivery Method Room Air Nasal Cannula Nasal Cannula Oxygen Flow Rate 2 2 Sepsis Recent Fever Within 48 Hours Sepsis New/Unexplained Change in Mental Status Sepsis Action Taken by Nursing 09/21/20 13:30 09/21/20 14:00 09/21/20 14:30 Temperature Temperature Source Pulse Rate 65 68 67 Pulse Rate from SpO2 Sensor 65 68 68 Respiratory Rate 15 14 19 Blood Pressure 101/54 L Blood Pressure Mean 63 Pulse Oximetry 100 99 99 Oxygen Delivery Method Nasal Cannula Nasal Cannula Room Air Oxygen Flow Rate 2 2 Sepsis Recent Fever Within 48 Hours Sepsis New/Unexplained Change in Mental Status Sepsis Action Taken by Nursing 09/21/20 15:00 09/21/20 15:30 Temperature Temperature Source Pulse Rate 68 65 Pulse Rate from SpO2 Sensor 69 65 Respiratory Rate 18 16 Blood Pressure 94/56 L Blood Pressure Mean 70 Pulse Oximetry 99 99 Oxygen Delivery Method Nasal Cannula Nasal Cannula Oxygen Flow Rate 2 2 Sepsis Recent Fever Within 48 Hours Sepsis New/Unexplained Change in Mental Status Sepsis Action Taken by Nursing Laboratory Data Attestation: I reviewed the patient's lab results. Result diagrams: 09/21/20 11:54 09/21/20 11:54 Lab Results 09/21/20 09/21/20 09/21/20 Range/Units 11:54 11:54 11:54 WBC 12.18 H (4.8-10.8) K/uL RBC 4.50 (4.2-5.4) M/uL Hgb 13.4 (12.0-16.0) g/dL Hct 41.5 (37-47) % MCV 92.2 (80-100) fL MCH 29.8 (25-34) pg MCHC 32.3 (32-36) g/dL RDW Std Deviation 46.1 (36.4-46.3) fL RDW Coeff of Mica 13.6 (11.5-14.5) % Plt Count 193 (130-400) K/uL MPV 10.2 (7.4-10.4) fL Immature Gran % (Auto) 0.3 % Neut % (Auto) 92.0 % Lymph % (Auto) 1.9 % [place] % (Auto) 5.7 % Eos % (Auto) 0.0 % Baso % (Auto) 0.1 % Neut # (Auto) 11.21 H (1.4-6.5) K/uL Lymph # (Auto) 0.23 L (1.2-3.4) K/uL [place] # (Auto) 0.69 H (0.11-0.59) K/uL Eos # (Auto) 0.00 (0-0.5) K/uL Baso # (Auto) 0.01 (0-0.2) K/uL Immature Gran # (Auto) 0.04 H (0.00-0.02) K/uL Sodium 138 (136-145) mmol/L Potassium 4.0 (3.5-5.1) mmol/L Chloride 101 (98-107) mmol/L Carbon Dioxide 31 (21-32) mmol/L Anion Gap 5.0 (3-11) BUN 30 H (7-18) mg/dl Creatinine 1.52 H (0.6-1.2) mg/dl Est Cr Clr Drug Dosing 31.5 ml/min Est GFR ( Amer) 43.0 Est GFR (Non-Af Amer) 37.1 BUN/Creatinine Ratio 19.5 (10-20) Glucose 142 H (70-99) mg/dl Calcium 9.2 (8.5-10.1) mg/dl Magnesium 2.1 (1.8-2.4) mg/dl Total Bilirubin 0.9 (0.2-1) mg/dl Direct Bilirubin 0.2 (0-0.2) mg/dl AST 24 (15-37) U/L ALT 25 (12-78) U/L Alkaline Phosphatase 73 (45-117) U/L Total Protein 7.3 (6.4-8.2) gm/dl Albumin 3.8 (3.4-5.0) gm/dl Globulin 3.5 (2.5-4.0) gm/dl Albumin/Globulin Ratio 1.1 (0.9-2) Lipase 109 (73-393) U/L Urine Color Yellow Urine Appearance Clear (Clear) Urine pH 8.0 H (4.5-7.5) Ur Specific [place] 1.022 (1.000-1.030) Urine Protein Negative (Negative) Urine Glucose (UA) Negative (Negative) Urine Ketones 1+ H (Negative) Urine Blood Negative (Negative) Urine Nitrite Negative (Negative) Urine Bilirubin Negative (Negative) Urine Urobilinogen Negative (Negative) Ur Leukocyte Esterase 1+ H (Negative) Urine WBC (Auto) 5-10 H (0-5) /hpf Urine RBC (Auto) 5-10 H (0-4) /hpf U Hyaline Cast (Auto) 1-5 (0-5) /lpf U Epithel Cells (Auto) >30 H (0-5) /lpf Urine Bacteria (Auto) Negative (Negative) Administered Medications Potassium Chloride/Sodium Chloride (1/2 Nss + 20meq Kcl 1000ml) 20 meq in 1,000 mls @ 125 mls/hr IV .Q8H BRIDGETT Stop: 10/21/20 18:59 Last Admin: 09/21/20 19:58 Dose: 125 mls/hr Documented by: [id number] Ondansetron HCl (Ondansetron Inj 2 Mg/Ml 2 Ml Vial) 4 mg IV Q6H PRN PRN Reason: Nausea Stop: 10/21/20 18:34 Last Admin: 09/21/20 19:31 Dose: 4 mg Documented by: [id number] Discontinued Medications Sodium Chloride (Nss 1000ml) 2,000 mls @ 999 mls/hr IV .Q2H1M ONE Stop: 09/21/20 13:47 Last Infusion: 09/21/20 14:03 Dose: 0 mls/hr Documented by: [id number] Admin: 09/21/20 12:11 Dose: 999 mls/hr Documented by: [id number] Acetaminophen (Ofirmev) 1,000 mg in 100 mls @ 400 mls/hr IV NOW STA Stop: 09/21/20 12:01 Last Infusion: 09/21/20 12:27 Dose: 0 mls/hr Documented by: [id number] Admin: 09/21/20 12:12 Dose: 400 mls/hr Documented by: [id number] Sodium Chloride (Nss 1000ml) 1,000 mls @ 999 mls/hr IV .Q1H1M ONE Stop: 09/21/20 14:31 Last Infusion: 09/21/20 15:04 Dose: 0 mls/hr Documented by: [id number] Admin: 09/21/20 14:03 Dose: 999 mls/hr Documented by: [id number] Ceftriaxone Sodium (Rocephin) 2,000 mg in 70 mls @ 140 mls/hr IV NOW STA Stop: 09/21/20 15:00 Last Infusion: 09/21/20 15:19 Dose: 0 mls/hr Documented by: [id number] Admin: 09/21/20 14:49 Dose: 140 mls/hr Documented by: [id number] Sodium Chloride (Nss 1000ml) 500 mls @ 999 mls/hr IV .Q31M ONE Stop: 09/21/20 19:54 Last Infusion: 09/21/20 20:04 Dose: 0 mls/hr Documented by: [id number] Admin: 09/21/20 19:30 Dose: 999 mls/hr Documented by: [id number] Ketorolac Tromethamine (Ketorolac Tromethamine 15 Mg/Ml Vial) 15 mg IV NOW STA Stop: 09/21/20 11:48 Last Admin: 09/21/20 12:12 Dose: 15 mg Documented by: [id number] Ketorolac Tromethamine (Ketorolac Tromethamine 15 Mg/Ml Vial) 15 mg IV NOW STA Stop: 09/21/20 13:20 Last Admin: 09/21/20 13:29 Dose: 15 mg Documented by: [id number] Morphine Sulfate (Morphine Sulfate 10 Mg/Ml Carp/Vial) 6 mg IV NOW STA Stop: 09/21/20 11:48 Last Admin: 09/21/20 12:12 Dose: 6 mg Documented by: [id number] Morphine Sulfate (Morphine Sulfate 4 Mg/Ml 1 Ml Carp\Vial) 4 mg IV Q2H PRN PRN Reason: Severe Pain (Rating 7,8,9,10) Stop: 10/05/20 14:25 Last Admin: 09/21/20 18:35 Dose: 4 mg Documented by: [id number] Naloxone HCl (Naloxone Hcl 0.4 Mg/1 Ml Vial/Carp) 0.4 mg IV NOW STA Stop: 09/21/20 19:25 Last Admin: 09/21/20 19:31 Dose: 0.4 mg Documented by: [id number] Ondansetron HCl (Ondansetron Inj 2 Mg/Ml 2 Ml Vial) 4 mg IV NOW STA Stop: 09/21/20 11:51 Last Admin: 09/21/20 12:12 Dose: 4 mg Documented by: [id number] Tamsulosin HCl (Tamsulosin Hcl 0.4 Mg Cap) 0.4 mg PO NOW ONE Stop: 09/21/20 13:20 Last Admin: 09/21/20 13:29 Dose: 0.4 mg Documented by: [id number] Discharge Plan Visit Data Chief Complaint: Flank Pain Stated Complaint: RIGHT SIDED FLANK PAIN ED Provider: Francisco Davis Discharge Problem: Ureterolithiasis, Hydronephrosis due to obstruction of ureter, Acute right flank pain, Acute renal insufficiency, Dehydration Patient Disposition: Admitted As Inpatient Discharge Instructions Interventions: ED Discharge Assessment Last Done: 09/21/20 18:05
[2020-09-21] MEDS ORDERED: MoRPHine SULFATE 4 MG/ML 1 ML CARP\\VIAL IV PRN (14:26)
[2020-09-21] MEDS ORDERED: MoRPHine SULFATE 2 MG/ML CARP IV PRN (14:26)
[2020-09-21] MEDS ORDERED: cefTRIAXone SODIUM 2,000 MG/70 ML BAG IV STA (14:31)
--- NOTE | 2020-09-21 15:44 | History & Physical Report ---
Date of Service September 21, 2020 Assessment & Plan (1) Urinary tract obstruction due to kidney stone: N.p.o. until reviewed by urology for possible ureteral stent insertion, previously did not have any pain relief to stent but will need to relieve obstruction - discussed case with Dr Alvarenga. No acute infection suspected however high risk of this given severity of hydronephrosis and proximal location of stone. We will continue ceftriaxone 2 g IV daily. IV Fluids as below. Pain relief with morphine. (2) MAURISIO (acute kidney injury): NSS 3 L bolus given in ER. Will continue with half normal saline plus KCl @125 mL per hr Secondary to obstructing stone as above. Avoid further toradol. (3) Hypoxia: Suspect secondary to morphine use causing reduced inspiratory effort. RR normal in ER. Discussed judicious use of further pain medication. (4) Ureterolithiasis: as above (5) Hydronephrosis of right kidney: as above (6) Small fiber neuropathy: Restart gabapentin when eating (7) DVT prophylaxis: Low risk. No SCDs or chemical prophylaxis. Admission and Anticipated Discharge Date Admission Date: 09/21/2020 History of Present Illness Chief Complaint: Right flank pain Primary Care Provider: Dasia Medrano MD Penelope Rapp is a 60 year old female who presents to the ER with right flank pain for the last 2 days. Became much worse overnight last night and went to see her PCP today who referred her to the ER for further evaluation. Associated hematuria. No fevers or chills, dysuria. She has a significant history of kidney stones requiring prior ureteral stent and lithotripsy but has not had one for many years. She reports actually trying to lie still and the pain improves but worse on any movement. Currently after morphine the pain is "tolerable" but severity 10/10 on palpation or any movement. In addition she has been belching frequently in the ER for the last 15 minutes. No abdominal pain, change in bowels, melena, prior history of gastric ulcers or bleeds. In the ER imaging confirmed an 8mm right sided proximal obstructing stone causing moderate-severe hydronephrosis. She was referred to medicine for admission. UA showed no bacteria on microscopy or nitrites, 1+ LE, 5-10 RBC and WBCs. Allergies Allergy/AdvReac Type Severity Reaction Status Date / Time Iodinated Contrast Media Allergy Unknown Unknown Verified 09/21/20 13:19 Home Medications Home Medications Medication Instructions Recorded Confirmed Type gabapentin 300 mg capsule 600 mg PO TID 90 Days #540 cap 05/20/20 09/21/20 Rx hydrochlorothiazide 25 mg tablet 25 mg PO DAILY #90 tab 08/22/20 09/21/20 Rx lorazepam 1 mg PO HS PRN 09/21/20 09/21/20 History sumatriptan succinate 50 mg PO UD PRN MDD 200 mg/day 09/21/20 09/21/20 History Past Med/Surg History Medical History Anxiety External hemorrhoids Flank pain Foot pain Hypertension Migraine Surgical History H/O oral surgery S/P tonsillectomy S/P tubal ligation S/P wisdom tooth extraction Family History Mother Bone cancer Hypertension Father Hypertension Lymphoma Aunt Ovarian cancer Grandmother (Maternal) Myocardial infarction Grandmother (Paternal) Myocardial infarction Denies family history of Prostate cancer Breast cancer Colorectal cancer Social History Smoking Status: Never smoker Second Hand Exposure: No; Do You Dip or Chew Tobacco: No; Hx Alcohol Use: No Hx Substance Use: No Preferred Language: Iraqi Communication Ability: Effective Candy Counter Clerk Required: Yes Beliefs That Will Affect Care: None marital status: Current Living Situation: Spouse current occupational status: retired Other Information That Helps Us Care for You: No Feels Safe at Home: Yes Safety Concerns: Feels Safe At This Time Childhood Exposure to Second-Hand Smoke: No Dental Care, Regularly: Yes Physical Activity Frequency: 3-4 Times per Week Seatbelt Use: always Sunscreen Use: No Assistive Devices: Oxygen - Continuous Assistive Devices Comment: Reading glasses- Not with her Review of Systems Review of Systems: All systems reviewed & are unremarkable except as noted in HPI & below Physical Exam Constitutional: well developed and well nourished; no acute distress Eyes: + anicteric sclerae; normal pupil size ENMT: Ears: no external ear abnormality Nose: no external nose abnormality Mouth: + dry oral mucous membranes Respiratory: normal respiratory effort, lungs clear to auscultation (Poor subconscious inspiratory effort, improved with direction) Cardiovascular: RRR, no murmur, no edema Gastrointestinal (Abdomen): normal bowel sounds, soft, nontender, no hepatosplenomegaly Musculoskeletal: no cyanosis or clubbing, extremities motor strength 5/5 Skin: no rashes, warm and dry Neurologic: moves all extremities and awake; not confused Psychiatric: A+Ox3, euthymic affect Genitourinary: + CVA tenderness (Right) Results & Data Results & Data ([facility]) Vital Signs (Past 12 Hours) Vital Signs Temp Pulse Resp BP Pulse Ox 09/21/20 15:00 68 18 94/56 L 99 09/21/20 14:30 67 19 99 09/21/20 14:00 68 14 101/54 L 99 09/21/20 13:30 65 15 100 09/21/20 13:00 69 14 97/62 L 100 09/21/20 12:45 69 18 95 09/21/20 12:20 71 20 98 09/21/20 12:17 66 15 121/67 100 09/21/20 12:13 99 09/21/20 11:28 36.6 C 76 18 118/[address] SCAN OF THE ABDOMEN AND PELVIS WITHOUT IV CONTRAST IMPRESSION: 1. There is an 8 mm obstructing calculus in the right proximal ureter. This causes moderate to severe right-sided hydroureteronephrosis. 2. Additional bilateral nonobstructing renal calculi as above. 3. A 1.3 cm angiomyolipoma is noted in the left kidney. 4. Trace nonspecific free fluid is seen in the cul-de-sac. 5. Additional findings as above. Code Status & VTE Plan Code Status Full VTE Prophylaxis Plan VTE Prophylaxis will be ordered: No PG Care Time/CCT Total # of Minutes Spent Total Time Spent with Patient: Total time spent is greater than 50% in coordination of care (as documented) at patient's floor/unit and/or counseling patient: Coding Level of Care Code 15084 Initial Inpt Care Lvl 3 Diagnoses Urinary tract obstruction due to kidney stone N20.0; N13.8 MAURISIO (acute kidney injury) N17.9 Hypoxia R09.02 Ureterolithiasis N20.1 Hydronephrosis of right kidney N13.30 Small fiber neuropathy G62.9 DVT prophylaxis Z29.9
[2020-09-21] MEDS ORDERED: ONDANSETRON INJ 2 MG/ML 2 ML VIAL IV PRN (18:35)
[2020-09-21] MEDS ORDERED: SODIUM CHLORIDE 0.9% 1000ML 500 ML IV ONE ×2 (19:24→23:29)
[2020-09-21] MEDS ORDERED: NALOXONE HCL 0.4 MG/1 ML VIAL/CARP IV STA (19:24)
[2020-09-21] MEDS ORDERED: NALOXONE HCL 0.4 MG/1 ML VIAL/CARP IV PRN (19:26)
[2020-09-21] MEDS: SODIUM CHLOR 0.45% + 20MEQ KCL 20 MEQ/1,000 ML BAG IV SCH (19:58)
[2020-09-21] MEDS ORDERED: HYDROmorphone INJ 0.5 MG/0.5 ML SYR IV PRN (21:56)
[2020-09-21 23:42] LABS: Allen Test Pos (Pos); Base Excess ABG -2.7 mEq/L (-9-1.8); HCO3 ABG 22 mmol/L (19-24); PCO2 ABG 38 mmHg (35-46); PO2 ABG 68 mmHg (80-95); pH ABG 7.38 (7.35-7.45)
[2020-09-21 23:58] LABS: Albumin Level 2.4 gm/dl (3.4-5.0); BUN Creatinine Ratio 20.6 (10-20); Creatinine Clr Calc Pharmacy 30.5 ml/min; Est GFR (African American) 41.4; Est GFR (Non-African American) 35.7; Magnesium 1.6 mg/dl (1.8-2.4)
[2020-09-22] MEDS ORDERED: NALOXONE HCL 0.4 MG/1 ML VIAL/CARP IV STA
[2020-09-22] MEDS ORDERED: PROPOFOL IV EMULSION 10 MG/ML 20 ML VIAL IV ONE (00:05)
[2020-09-22] MEDS ORDERED: MIDAZOLAM HCL 1 MG/ML 2ML VIAL ONE (00:05)
[2020-09-22 00:10] LABS: Basophils # (auto) 0.01 K/uL (0-0.2); Basophils % (auto) 0.2 %; Dohle Bodies 1+; Eosinophils # (auto) 0.01 K/uL (0-0.5); Eosinophils % (auto) 0.2 %; Hematocrit (blood only) 35.7 % (37-47); Hemoglobin 11.5 g/dL (12.0-16.0); Immature Granulocytes # (auto) 0.06 K/uL (0.00-0.02); Immature Granulocytes % (auto) 1.1 %; Lymphocytes # (auto) 0.14 K/uL (1.2-3.4); Lymphocytes % (auto) 2.5 %; Mean Corpuscular Hemoglobin 30.1 pg (25-34); Mean Corpuscular Hgb Conc 32.2 g/dL (32-36); Mean Corpuscular Volume 93.5 fL (80-100); Mean Platelet Volume 10.8 fL (7.4-10.4); Monocytes # (auto) 0.05 K/uL (0.11-0.59); Monocytes % (auto) 0.9 %; Neutrophils # (auto) 5.41 K/uL (1.4-6.5); Neutrophils % (auto) 95.1 %; Platelet Count 92 K/uL (130-400); Platelet Estimate Decreased (Normal); RDW Coefficient of Variation 14.1 % (11.5-14.5); RDW Standard Deviation 48.3 fL (36.4-46.3); Red Blood Count 3.82 M/uL (4.2-5.4); Toxic Vacuolation 1+; White Blood Count 5.68 K/uL (4.8-10.8)
--- NOTE | 2020-09-22 00:11 | Urology Consultation ---
Date of Consultation September 22, 2020 Assessment & Plan (1) Hydronephrosis due to obstruction of ureter: Patient is undergoing acute management and resuscitation for sudden onset of sepsis. Expanded coverage of antibiotics have been ordered by the hospitalist team. Patient is in the midst of being transferred to the intensive care unit with plans to emergently take for cystoscopy and stent placement on the right. A rapid urgent Covid test has been ordered. All imaging was reviewed interpreted by myself. Patient has an obstructing proximal/mid ureteral stone on the right with significant hydronephrosis. Risks and benefits discussed at length for procedure. These include bleeding, infection, injury to surrounding tissues or organs, and risks associated with anesthesia. Patient states understanding and agrees to proceed. Will sign consent and schedule. We will set up for urgent/emergent cystoscopy and right stent placement (2) Sepsis: History of Present Illness Attending Physician: Gavino Fulton MD History of Present Illness Consultation for patient with stone, discomfort, obstruction, and ill feelings. Patient had been admitted and was undergoing hydration and monitoring when she developed hypotension, fever, and increasing symptoms. Patient was seen by the hospitalist team and was transferred to the ICU and urology was alerted for emergent stent placement. Patient developed sudden onset of pain into flank going down and radiating into groin and back in waves comes and goes. Can be severe at times. Discussed and reviewed patient's family history for any history of stone disease. Also, discussed patient's medical surgery history especially related to any history of urinary issues or stone disease. With sudden onset of acute issues patient was being actively resuscitated with volume replacement and IV hydration. A urgent rapid Covid test was ordered. Allergies Allergy/AdvReac Type Severity Reaction Status Date / Time Iodinated Contrast Media Allergy Unknown Unknown Verified 09/21/20 13:19 Home Medications Home Medications Medication Instructions Recorded Confirmed Type gabapentin 300 mg capsule 600 mg PO TID 90 Days #540 cap 05/20/20 09/21/20 Rx hydrochlorothiazide 25 mg tablet 25 mg PO DAILY #90 tab 08/22/20 09/21/20 Rx lorazepam 1 mg PO HS PRN 09/21/20 09/21/20 History sumatriptan succinate 50 mg PO UD PRN MDD 200 mg/day 09/21/20 09/21/20 History Patient History Medical History Anxiety External hemorrhoids Flank pain Foot pain Hypertension Migraine Surgical History H/O oral surgery S/P tonsillectomy S/P tubal ligation S/P wisdom tooth extraction Family History Mother Bone cancer Hypertension Father Hypertension Lymphoma Aunt Ovarian cancer Grandmother (Maternal) Myocardial infarction Grandmother (Paternal) Myocardial infarction Denies family history of Prostate cancer Breast cancer Colorectal cancer Social History Smoking Status: Never smoker Second Hand Exposure: No; Do You Dip or Chew Tobacco: No; Hx Alcohol Use: No Hx Substance Use: No Preferred Language: Vietnamese Communication Ability: Effective Senior Network Security Architect Required: Yes Beliefs That Will Affect Care: None marital status: Current Living Situation: Spouse current occupational status: retired Other Information That Helps Us Care for You: No Feels Safe at Home: Yes Safety Concerns: Feels Safe At This Time Childhood Exposure to Second-Hand Smoke: No Dental Care, Regularly: Yes Physical Activity Frequency: 3-4 Times per Week Seatbelt Use: always Sunscreen Use: No Assistive Devices: Glasses Assistive Devices Comment: Reading glasses- Not with her Review of Systems Review of Systems: All systems reviewed & are unremarkable except as noted in HPI & below Physical Exam Physical Exam: General: Alert and oriented x 3. Acutely ill with fever and hypotension with development of sepsis HEENT: Normocephalic Atraumatic. Inspection normal. Cranial Nerves 2-12 Grossly intact. Nares are clear. Neck is supple. Normal inspection of face. Normal inspection of neck. Neurologic: No deficits on inspection. Baseline for motor function and sensory. Psychologic: Normal affect. Respiratory: Nonlabored. No use of accessory muscles. No tachypnea or dyspnea. Cardiovascular: No tachycardia Skin: [place] and Dry. No rashes or visible lesions. Extremities: Moving without issues. No motor deficits on inspection Lymphatics: No edema Abdomen: Soft Non-distended. Right-sided flank pain. Results & Data ([facility]) Vital Signs (Past 12 Hours) Vital Signs Temp Pulse Pulse Resp BP BP BP 09/21/20 23:30 38.9 C H 88 14 78/51 L 09/21/20 23:15 38.9 C H 88 14 66/41 L 09/21/20 19:51 90 14 101/80 09/21/20 19:10 90 20 98/64 L 09/21/20 19:02 37.1 C 90 20 89/50 L 09/21/20 18:00 74 20 83/57 L 09/21/20 17:30 69 18 09/21/20 17:00 69 19 90/50 L 09/21/20 16:30 68 17 09/21/20 16:00 67 20 110/71 09/21/20 15:30 65 16 09/21/20 15:00 68 18 94/56 L 09/21/20 14:30 67 19 09/21/20 14:00 68 14 101/54 L 09/21/20 13:30 65 15 09/21/20 13:00 69 14 97/62 L 09/21/20 12:45 69 18 09/21/20 12:20 71 20 09/21/20 12:17 66 15 121/67 09/21/20 12:13 Pulse Ox 09/21/20 23:30 94 09/21/20 23:15 92 09/21/20 19:51 99 09/21/20 19:10 96 09/21/20 19:02 85 L 09/21/20 18:00 100 09/21/20 17:30 100 09/21/20 17:00 99 09/21/20 16:30 99 09/21/20 16:00 99 09/21/20 15:30 99 09/21/20 15:00 99 09/21/20 14:30 99 09/21/20 14:00 99 09/21/20 13:30 100 09/21/20 13:00 100 09/21/20 12:45 95 09/21/20 12:20 98 09/21/20 12:17 100 09/21/20 12:13 99 PG Care Time/CCT Total # of Minutes Spent Total Time Spent with Patient: Total time spent is greater than 50% in coordination of care (as documented) at patient's floor/unit and/or counseling patient: Coding Level of Care Code 21636 Inpt Consult Level 5 Diagnoses Hydronephrosis due to obstruction of ureter N13.2 Sepsis A41.9
[2020-09-22] MEDS ORDERED: SODIUM PHOSPHATE 3 MMOL/1 ML INFUSION IV STA (00:20)
[2020-09-22 00:22] LABS: Albumin Globulin Ratio 0.9 (0.9-2); Bilirubin,Total 0.5 mg/dl (0.2-1); Globulin 2.7 gm/dl (2.5-4.0); Phosphorus 1.4 mg/dl (2.5-4.9); Total Protein 5.1 gm/dl (6.4-8.2)
[2020-09-22] MEDS ORDERED: MEROPENEM 500 MG in SYRINGE 0 ML IV SCH (00:30)
[2020-09-22] MEDS ORDERED: SODIUM PHOSPHATE 15 MMOL in SODIUM CHLORIDE 0.9% 250 ML IV ONE (00:30)
[2020-09-22] MEDS: ALBUMIN 25% 12.5 GM/50 ML VIAL IV SCH ×4 (00:31→04:32)
[2020-09-22] MEDS ORDERED: MEROPENEM CONSULT ACITVE PRN (00:52)
[2020-09-22] MEDS ORDERED: PHENYLEPHRINE 100MCG/ML 5ML SYR ONE (01:12)
--- NOTE | 2020-09-22 01:13 | Operative Report ---
PG Post Operative Report Pre & Post Diagnosis Operation Date: 09/21/20 23:59 Pre-Op Diagnosis: OBSTRUCTION URETEROLITHIASIS Post-Op Diagnosis: OBSTRUCTION URETEROLITHIASIS I identified the patient and participated in the time-out.: Yes Procedure Cystoscopy with right retrograde pyelogram, aspiration, and stent placement. Operation Date: 09/21/20 23:59 <No data on this case meets the specified criteria> Surgeon Rolly Alvarenga, II, DO [employer] None Estimated Blood Loss 1 Findings Consistent with Post-Op Diagnosis Stent placed in good position. Purulent urine from right renal pelvis. Specimens Urine right renal pelvis. Drains 6 Fr Multilength 20 Fr Stinson Anesthesia Type MAC Complications none Disposition Disposition: Recovery Room Indications Patient with obstruction. Risks and benefits discussed at length. Description of Procedure Patient was consented and brought back to the operating room. Patient was placed under anesthesia in the supine position and moved to the dorsal lithotomy position. Patient was prepped and draped in the regular sterile fashion. A time out was completed. A 30degree Cystoscope was placed into the bladder and the entire bladder was examined. The UO's were identified. The UO was cannulized with a catheter, an aspiration was completed, and a retrograde pyelogram was completed. Dark purulent urine was aspirated and sent for analysis. Considerable hydronephrosis was noted. A wire was then placed. With the wire in place, a 6 Fr Double J stent was placed. It was confirmed with fluoroscopy. With the stent in place, the bladder was emptied. The scope was removed. The patient was cleaned, aroused from anesthesia, and transferred to the pacu in stable condition having tolerated the procedure well with no complications. I was present and participated in all aspects of the procedure. The patient will be monitored in the PACU until transferred. I attest to the content of the Intraoperative Record and any orders documented therein. Any exceptions are noted below.
[2020-09-22] MEDS ORDERED: ePHEDrine sulfate 50 MG/ML AMP ONE (01:19)
[2020-09-22] MEDS ORDERED: PHENYLEPHRINE HCL 10 MG/ML VIAL ONE (01:20)
[2020-09-22] MEDS ORDERED: DIATRIZOATE MEGLUMINE 30% 100ML VIAL INSTIL ONE (01:23)
[2020-09-22] MEDS ORDERED: STAT IV Infusion **Titration per Protocol STA ×3 (01:53→04:37)
[2020-09-22] MEDS ORDERED: PHENYLEPHRINE HCL 20 MG in DEXTROSE 5% 500 ML IV SCH (02:00)
--- NOTE | 2020-09-22 02:26 | Critical Care Consultation ---
Date of Consultation September 22, 2020 Assessment & Plan (1) Septic shock: Reason Critically Ill: 60-year-old female presents to the ICU post ureteral stent placement for hydronephrosis due to obstruction of ureter and septic shock requiring multiple vasopressors. Neuro - CAM ICU: Negative Pain management: Of note patient did have morphine in the emergency department with AMS and received Narcan, would be careful with analgesics -Pain that was currently managed with IV Tylenol Small fiber neuropathycontinue gabapentin when appropriate Migrainescontinue sumatriptan Cardiac - Shockmost likely septic shock as patient was admitted for obstructive hydronephrosis and became febrile and hypotensive, elevated lactate, see sepsis management below -Patient without prior echo, will obtain this a.m. to rule out cardiopulmonary component -Cortisol 40, no indication for steroids at this time -Troponin pending -H&H stable -CVC inserted as patient is requiring Levophed and vasopressin drips to maintain maps greater than 65 -Currently normal sinus rhythm on monitor, continuous monitor on telemetry Respiratory - Hypoxic respiratory insufficiencyno history of pulmonary disease and patient was on room air on admission, most likely pulmonary edema/congestion following IV fluid boluses for septic shock -Chest x-ray consistent with acute pulmonary congestion -Currently maintaining sats on 10 L oxygen mask, if patient worsens would likely benefit from BiPAP will hold off for now as she does appear comfortable on exam -We will hold on diuresis for the time being as she is in septic shock and requiring multiple vasopressors -We will hold on further fluid resuscitation for the time being -Continuous monitoring on pulse ox GI - N.p.o. RENAL/LYTES - AKIcreatinine on admission 1.5, within normal limits on prior admissions -Most likely post obstructive as patient was normotensive on admission and would expect to improve -We will maintain maps greater than 65 and avoid nephrotoxins -Currently holding on additional IV fluids as patient has become hypoxic and is 5 L positive with likely volume overload -Continue to monitor strict I's and O's -Trend with routine BMPs - Obstructed ureter with hydronephrosisstatus post right ureteral stent placement via the cystoscopy -Urology managing, will follow up recommendations ENDO - No history of diabetes or thyroid disease ICU hyperglycemic protocol HEME - H&H stable, monitor routine CBCs ID - Sepsismost likely urosepsis given hydronephrosis -Currently patient is febrile, hypotensive, with elevated lactate -Pro-Walter pending -Urine from the ureter collected intraprocedure and culture and Gram stain pending -Blood cultures ordered -Patient was initially given Rocephin in the ED empirically, broadened to meropenem when she became septic LINES/IV ACCESS - CVC, PIV's, Stinson DVT PROPHYLAXIS - SCDs I have personally spent 65 minutes of critical care time in the direct management of this patient. This is a life/limb threatening event. This includes time spent evaluating patient, direct bedside care, chart review, placing orders, interpretation of diagnostic studies, discussion with consultants, patient, and family members, as well as other required patient management activities. This time is exclusive of all separately billable procedures, and teaching time and separate from and in addition to any other critical care service time. Thank you for allowing us to participate in the care of this patient. Please refer to my attending physician's documentation for any further recommendations. (2) Ureterolithiasis: (3) Hydronephrosis due to obstruction of ureter: (4) MAURISIO (acute kidney injury): (5) Hypoxia: Supervising Physician Co-Signing Physician Notes I have personally evaluated and examined this patient. I agree with assessment and plan of Tatiana SOLARES. During my evaluation the patient is still requiring vasoactive medication for sepsis induced hypotension. Awaiting speciation to de-escalate antibiotic therapy. History of Present Illness Attending Physician: Gavino Fulton MD History of Present Illness Ms. Rapp is a 60-year-old female with past medical history migraines, small fiber neuropathy, kidney stones, HTN who presented to the emergency department yesterday afternoon with acute worsening of right flank pain that had begun a few days ago and had gradually worsened and had been referred by her PCP to the emergency department. A CT of her abdomen demonstrated a millimeter obstructing calculus in the right proximal ureter with associated moderate to severe right- sided hydroureteronephrosis. She was admitted to the floor with urology co nsultation but at the time was afebrile and normotensive, will but was given Rocephin empirically. Last night there was a code purple involving the patient in which she was increasingly hypotensive and febrile and was now requiring supplemental oxygen. She was bolused with IV fluid and transferred to PCU and taken from there to the OR where she underwent cystoscopy with right retrograde pyelogram, aspiration, and stent placement. Intraprocedure, patient continued to require phenylephrine for hypotension, and was transferred to the ICU postop. Following arrival to the ICU the patient required increasing amounts of vasopressor and she was switched to Levophed and vasopressin, and CVC was emergently inserted. She is currently maintaining oxygen saturation on 10 L oxygen mask. Patient remained in ICU for further management of this time On exam patient is alert and oriented and is very pleasant. She she continues complaints of right flank plain associated with any sort of movement, but is manageable at rest. She also complains of a headache. She denies dizziness, syncope, shortness of breath, chest pain, palpitation, recent illness or sore throat, nausea or vomiting or diarrhea. Allergies Allergy/AdvReac Type Severity Reaction Status Date / Time Iodinated Contrast Media Allergy Unknown Unknown Verified 09/21/20 13:19 Home Medications Home Medications Medication Instructions Recorded Confirmed Type gabapentin 300 mg capsule 600 mg PO TID 90 Days #540 cap 05/20/20 09/21/20 Rx hydrochlorothiazide 25 mg tablet 25 mg PO DAILY #90 tab 08/22/20 09/21/20 Rx lorazepam 1 mg PO HS PRN 09/21/20 09/21/20 History sumatriptan succinate 50 mg PO UD PRN MDD 200 mg/day 09/21/20 09/21/20 History Patient History Medical History Anxiety External hemorrhoids Flank pain Foot pain Hypertension Migraine Surgical History H/O oral surgery S/P tonsillectomy S/P tubal ligation S/P wisdom tooth extraction Family History Mother Bone cancer Hypertension Father Hypertension Lymphoma Aunt Ovarian cancer Grandmother (Maternal) Myocardial infarction Grandmother (Paternal) Myocardial infarction Denies family history of Prostate cancer Breast cancer Colorectal cancer Social History Smoking Status: Never smoker Second Hand Exposure: No; Do You Dip or Chew Tobacco: No; Hx Alcohol Use: No Hx Substance Use: No Preferred Language: Maldivian Communication Ability: Effective Talent Sourcer Required: Yes Beliefs That Will Affect Care: None marital status: Current Living Situation: Spouse current occupational status: retired Other Information That Helps Us Care for You: No Feels Safe at Home: Yes Safety Concerns: Feels Safe At This Time Childhood Exposure to Second-Hand Smoke: No Dental Care, Regularly: Yes Physical Activity Frequency: 3-4 Times per Week Seatbelt Use: always Sunscreen Use: No Assistive Devices: Oxygen - Continuous Assistive Devices Comment: Reading glasses- Not with her Review of Systems Review of Systems: All systems reviewed & are unremarkable except as noted in HPI & below Physical Exam Constitutional: cooperative and comfortable Eyes: PERRL, conjunctivae normal, anicteric sclerae ENMT: external ear and nose normal, oropharynx normal Neck: trachea midline, no thyromegaly Respiratory: Normal respiratory effort, lungs with fine crackles in bases bilaterally, symmetrical chest wall movement, no stridor or wheezing Cardiovascular: RRR, no murmur, no edema Heart Sounds: normal S1 and normal S2 Vessels: + JVD Extremities: no edema Gastrointestinal (Abdomen): normal bowel sounds, soft, nontender, no hepatosplenomegaly Musculoskeletal: no cyanosis or clubbing, extremities motor strength 5/5 Skin: no rashes, warm and dry Neurologic: PERRL, EOMI, accommodation nl, no face palsy, no dysarthria Psychiatric: A+Ox3, euthymic affect Genitourinary: Indwelling Stinson catheter present. Results & Data Results & Data ([facility]) Vital Signs (Past 12 Hours) Vital Signs Temp Pulse Pulse Resp BP BP BP 09/22/20 00:11 39.0 C H 87 14 76/49 L 09/21/20 23:30 38.9 C H 88 14 78/51 L 09/21/20 23:15 38.9 C H 88 14 66/41 L 09/21/20 19:51 90 14 101/80 09/21/20 19:10 90 20 98/64 L 09/21/20 19:02 37.1 C 90 20 89/50 L 09/21/20 18:00 74 20 83/57 L 09/21/20 17:30 69 18 09/21/20 17:00 69 19 90/50 L 09/21/20 16:30 68 17 09/21/20 16:00 67 20 110/71 09/21/20 15:30 65 16 09/21/20 15:00 68 18 94/56 L 09/21/20 14:30 67 19 Pulse Ox 09/22/20 00:11 95 09/21/20 23:30 94 09/21/20 23:15 92 09/21/20 19:51 99 09/21/20 19:10 96 09/21/20 19:02 85 L 09/21/20 18:00 100 09/21/20 17:30 100 09/21/20 17:00 99 09/21/20 16:30 99 09/21/20 16:00 99 09/21/20 15:30 99 09/21/20 15:00 99 09/21/20 14:30 99 Coding Level of Care Code Critical Care 1st 30-74 mins Diagnoses Septic shock A41.9; R65.21 Ureterolithiasis N20.1 Hydronephrosis due to obstruction of ureter N13.2 MAURISIO (acute kidney injury) N17.9 Hypoxia R09.02
--- NOTE | 2020-09-22 02:51 | Anesthesiology Progress Note ---
Date of Service September 22, 2020 Anesthesia Post Procedure Vital Signs Vital Signs: Temp Pulse Pulse Resp BP BP BP 09/22/20 02:30 89 13 81/49 L 09/22/20 02:20 96 H 17 83/50 L 09/22/20 02:18 38.0 C H 95 H 26 H 78/47 L 09/22/20 02:15 94 H 23 77/48 L 09/22/20 02:10 95 H 13 84/51 L 09/22/20 02:00 96 H 27 H 83/54 L 09/22/20 00:11 39.0 C H 87 14 76/49 L 09/21/20 23:30 38.9 C H 88 14 78/51 L 09/21/20 23:15 38.9 C H 88 14 66/41 L 09/21/20 19:51 90 14 101/80 09/21/20 19:10 90 20 98/64 L 09/21/20 19:02 37.1 C 90 20 89/50 L 09/21/20 18:00 74 20 83/57 L 09/21/20 17:30 69 18 09/21/20 17:00 69 19 90/50 L 09/21/20 16:30 68 17 09/21/20 16:00 67 20 110/71 09/21/20 15:30 65 16 09/21/20 15:00 68 18 94/56 L 09/21/20 14:30 67 19 09/21/20 14:00 68 14 101/54 L 09/21/20 13:30 65 15 09/21/20 13:00 69 14 97/62 L 09/21/20 12:45 69 18 09/21/20 12:20 71 20 09/21/20 12:17 66 15 121/67 09/21/20 12:13 09/21/20 11:28 36.6 C 76 18 118/76 Pulse Ox 09/22/20 02:30 92 09/22/20 02:20 93 09/22/20 02:18 91 09/22/20 02:15 86 L 09/22/20 02:10 91 09/22/20 02:00 90 09/22/20 00:11 95 09/21/20 23:30 94 09/21/20 23:15 92 09/21/20 19:51 99 09/21/20 19:10 96 09/21/20 19:02 85 L 09/21/20 18:00 100 09/21/20 17:30 100 09/21/20 17:00 99 09/21/20 16:30 99 09/21/20 16:00 99 09/21/20 15:30 99 09/21/20 15:00 99 09/21/20 14:30 99 09/21/20 14:00 99 09/21/20 13:30 100 09/21/20 13:00 100 09/21/20 12:45 95 09/21/20 12:20 98 09/21/20 12:17 100 09/21/20 12:13 99 09/21/20 11:28 99 Pain Intensity Right Flank: Pain Intensity: 3 Transfer of Care Handoff Completed per policy Notes Mental Status: alert / awake / arousable and participated in evaluation Patient Amnestic to Procedure: Yes Nausea / Vomiting: adequately controlled Pain: adequately controlled Airway Patency, RR, SpO2: stable & adequate BP & HR: stable & adequate Hydration State: stable & adequate Anesthetic Complications: no major complications apparent and Pt Satisfied with anesthetic care
--- NOTE | 2020-09-22 02:54 | Anesthesiology Consultation ---
Date of Service September 22, 2020 Assessment & Plan ASA [id number] Proposed Anesthesia Anesthesia Type: MAC Risk / Benefits Reviewed With: PT / POA / Parent / Guardian, Accepts Plan and Informed Consent Obtained Additional Comments: pt was a rapid response. pt is septic with poor vital signs. pt declared an emergency by urologist. H and P performed before case but not recorded until after 2/2 critical nature of case History Surgery Operation Date: 09/21/20 23:59 Proposed Procedures p Cystoscopy, Stent insertation. - Rolly Alvarenga, Height/Weight Height: 5 ft 2 in Weight: 57 kg Allergies Allergy/AdvReac Type Severity Reaction Status Date / Time Iodinated Contrast Media Allergy Unknown Unknown Verified 09/21/20 13:19 Medications Home Medications Medication Instructions Recorded Confirmed Last Taken gabapentin 300 mg capsule 600 mg PO TID 90 Days #540 cap 05/20/20 09/21/20 09/20/20 hydrochlorothiazide 25 mg tablet 25 mg PO DAILY #90 tab 08/22/20 09/21/20 09/20/20 lorazepam 1 mg PO HS PRN 09/21/20 09/21/20 09/20/20 sumatriptan succinate 50 mg PO UD PRN MDD 200 mg/day 09/21/20 09/21/20 Unknown Active Medications Generic Name Dose Route Start Last Admin Trade Name Freq PRN Reason Stop Dose Admin Potassium Chloride/Sodium Chloride 20 meq in 1,000 mls @ 125 mls/hr 09/21/20 19:00 09/22/20 00:21 1/2 Nss + 20meq Kcl 1000ml IV 10/21/20 18:59 Infused .Q8H BRIDGETT Infusion Albumin Human 12.5 gm in 50 mls @ 50 mls/hr 09/22/20 00:15 09/22/20 02:30 Albumin 25% IV 09/22/20 04:14 Not Given Q1H BRIDGETT Phenylephrine HCl 20 mg/ 502 mls @ 42.921 mls/hr 09/22/20 02:00 09/22/20 02:30 Dextrose IV 10/22/20 01:59 1 mcg/kg/min .[id number] BRIDGETT 85.8 mls/hr Titration Protocol 0.5 MCG/KG/MIN Naloxone HCl 0.4 mg 09/21/20 19:26 09/21/20 23:22 Naloxone Hcl 0.4 Mg/1 Ml Vial/Carp IV 10/21/20 19:25 0.4 mg Q1H PRN Administration Opiate overdose Ondansetron HCl 4 mg 09/21/20 18:35 09/21/20 19:31 Ondansetron Inj 2 Mg/Ml 2 Ml Vial IV 10/21/20 18:34 4 mg Q6H PRN Administration Nausea NPO Date Last Intake of Fluids: 09/20/20 Time Last Intake of Fluids: 00:00 Date Last Intake of Solids: 09/20/20 Time Last Intake of Solids: 00:00 Past Medical History Medical History Anxiety External hemorrhoids Flank pain Foot pain Hypertension Migraine Exercise / Class Metabolic Activity II 4-5 Yardwork/Stairs/Walk up hill Past Family History Family History Mother Bone cancer Hypertension Father Hypertension Lymphoma Aunt Ovarian cancer Grandmother (Maternal) Myocardial infarction Grandmother (Paternal) Myocardial infarction Denies family history of Prostate cancer Breast cancer Colorectal cancer Past Surgical History Surgical History H/O oral surgery S/P tonsillectomy S/P tubal ligation S/P wisdom tooth extraction Past Anesthesia History No Hx of Anesthesia Complications and No Family Hx of Anesthesia Complications History of PONV No Hx of PONV and No Hx of Motion Sickness Social History Smoking Status: Never smoker Do You Dip or Chew Tobacco: No Hx Alcohol Use: No Hx Substance Use: No Review of Systems denies fever/cough/ colds/ chest pain/ SOB/ MERCY denies MERCY Physical Exam Vital Signs Last Vital Signs Temp 38.0 C H 09/22/20 02:18 Pulse 89 09/22/20 02:30 Resp 13 09/22/20 02:30 BP 81/49 L 09/22/20 02:30 Pulse Ox 92 09/22/20 02:30 ENMT Mouth: no TMJ abnormality and no dentition abnormality Thyromental Distance: > or= 3.5 Finger Breadths Mallampati Class: II Neck neck extension not limited Respiratory normal respiratory effort; no respiratory distress Auscultation: lungs clear to auscultation bilaterally Cardiovascular Rate/Rhythm: regular rate and regular rhythm Neurologic moves all extremities Psychiatric Orientation: alert and oriented x 3 Testing Laboratory Results 09/21/20 23:31 09/21/20 23:31 Urine Color Yellow 09/21/20 11:54 Urine Appearance Clear (Clear) 09/21/20 11:54 Urine pH 8.0 (4.5-7.5) H 09/21/20 11:54 Ur Specific [place] 1.022 (1.000-1.030) 09/21/20 11:54 Urine Protein Negative (Negative) 09/21/20 11:54 Urine Glucose (UA) Negative (Negative) 09/21/20 11:54 Urine Ketones 1+ (Negative) H 09/21/20 11:54 Urine Nitrite Negative (Negative) 09/21/20 11:54 Ur Leukocyte Esterase 1+ (Negative) H 09/21/20 11:54 Urine WBC (Auto) 5-10 /hpf (0-5) H 09/21/20 11:54 Urine RBC (Auto) 5-10 /hpf (0-4) H 09/21/20 11:54 U Hyaline Cast (Auto) 1-5 /lpf (0-5) 09/21/20 11:54 U Epithel Cells (Auto) >30 /lpf (0-5) H 09/21/20 11:54 Urine Bacteria (Auto) Negative (Negative) 09/21/20 11:54 09/21/20 23:21 POC Glucose 115 H
[2020-09-22 02:57] LABS: Hematocrit (blood only) 33.7 % (37-47); Hemoglobin 10.6 g/dL (12.0-16.0); Mean Corpuscular Hemoglobin 29.8 pg (25-34); Mean Corpuscular Hgb Conc 31.5 g/dL (32-36); Mean Corpuscular Volume 94.7 fL (80-100); RDW Coefficient of Variation 14.2 % (11.5-14.5); RDW Standard Deviation 49.4 fL (36.4-46.3); Red Blood Count 3.56 M/uL (4.2-5.4); White Blood Count 9.14 K/uL (4.8-10.8)
[2020-09-22 03:05] LABS: Mean Platelet Volume 10.9 fL (7.4-10.4); Platelet Count 82 K/uL (130-400)
[2020-09-22] MEDS: MAGNESIUM SULFATE / D5W 1 GM/100 ML BAG IV SCH ×2 (03:12→05:03)
[2020-09-22 03:14] LABS: BUN Creatinine Ratio 21.9 (10-20); Calcium 6.6 mg/dl (8.5-10.1); Creatinine Clr Calc Pharmacy 32.8 ml/min; Est GFR (African American) 45.2; Potassium 3.6 mmol/L (3.5-5.1)
[2020-09-22 03:16] LABS: Basophils # (auto) 0.01 K/uL (0-0.2); Basophils % (auto) 0.1 %; Dohle Bodies 1+; Immature Granulocytes # (auto) 0.13 K/uL (0.00-0.02); Immature Granulocytes % (auto) 1.4 %; Lymphocytes # (auto) 0.14 K/uL (1.2-3.4); Lymphocytes % (auto) 1.5 %; Monocytes % (auto) 3.3 %; Neutrophils # (auto) 8.56 K/uL (1.4-6.5); Neutrophils % (auto) 93.7 %; Toxic Vacuolation 1+
[2020-09-22] MEDS ORDERED: CALCIUM GLUCONATE 10% 1,000 MG in SODIUM CHLORIDE 0.9% 50 ML IV STA ×2 (03:29→06:52)
[2020-09-22] MEDS: NOREPINEPHRINE BIT INJ 8 MG in DEXTROSE 5% 500 ML IV SCH (03:53)
[2020-09-22] MEDS ORDERED: FUROSEMIDE 20 MG in SYRINGE 0 ML IV ONE (04:26)
[2020-09-22] MEDS ORDERED: NORMOSOL-R 1,000 ML IV SCH (04:30)
[2020-09-22] MEDS: SODIUM CHLOR 0.45% + 20MEQ KCL 20 MEQ/1,000 ML BAG IV SCH (04:33)
[2020-09-22] MEDS: VASOPRESSIN 20 UNITS in 0.9 % SODIUM CHLORIDE 100 ML IV SCH ×3 (04:50→21:52)
--- NOTE | 2020-09-22 05:41 | Procedure Note ---
Procedure Note Date of Service September 22, 2020 Note INTERNAL JUGULAR CENTRAL LINE PROCEDURE NOTE: Procedure: Internal Jugular Central Line Placement Attending: Dr. Will Moreland Provider: SUJATHA Lane Indication: Central Drug Administration Anesthesia: Lidocaine 1% Line placed emergently in the setting of septic shock requiring multiple vasopressors A time-out was completed verifying correct patient, procedure, site, positioning, and implants(s) or special equipment if applicable. Patients right neck was cleansed and draped in the typical sterile fashion using Chloraprep. The Internal Jugular Vein and Carotid Artery were identified using ultrasound. The superficial tissue was anesthetized using 3 mL of 1% lidocaine without epinephrine under direct visualization with the ultrasound. After adequate anesthetization was achieved, the Internal Jugular vein was cannulated under direct ultrasound guidance using an introducer needle on a syringe. Good venous blood return was maintained prior to removal of syringe from introducer needle. Using Seldinger Technique, a guide wire was advanced through the introducer needle without resistance. The introducer needle was removed and ultrasound images were obtained of the guide wire within the Internal Jugular Vein and s aved to the patients medical record. A small incision was made in penetrating fashion at the guide wire insertion site utilizing an 11 blade scalpel. The dilator was advanced to the vessel without resistance. The dilator was exchanged for the triple lumen catheter which was advanced into the vessel without resistance. The guide wire was removed intact from the catheter without issue. Claves were placed on each catheter tip with confirmation of good blood flow from each lumen. Each port was easily flushed with sterile saline. The catheter was placed at 15 cm and sutured in place. BioPatch was applied to the catheter and a sterile Tegaderm dressing was applied over the catheter with careful attention to sterility. Patient tolerated procedure well. No immediate complications were met. Post procedure x-ray was completed, placement was appropriate and no pneumothorax was noted. Images obtained are saved for permanent record Procedural Ultrasound Guidance: Procedure Date: 09/22/2020 Indication: Internal jugular line CVC insertion Attending: Dr. Will Moreland Provider: SUJATHA Lane Artery AND Vein visualized: Yes Compressible Vein: Yes Guidewire or Short Catheter seen in vein prior to dilation: Yes Line confirmed in Vein with ultrasound: Yes Images obtained are saved for permanent record. Coding CPT Codes Tubes, Drains, and Vasc Access - Tubes, Drains, and Vasc Access: [id number] Place catheter in vein superior or inferior vena cava ([id number]) Tubes, Drains, and Vasc Access - Tubes, Drains, and Vasc Access: [id number] Ultrasound Guidance For Vascular ([id number]) [facility] [place] Procedure Codes (Charges) Tubes, Drains, and Vasc Access Procedure 1: Tubes, Drains, and Vasc Access: [id number] Place catheter in vein superior or inferior vena cava Procedure 2: Tubes, Drains, and Vasc Access: [id number] Ultrasound Guidance For Vascular
[2020-09-22 06:36] LABS: INR 1.3 (0.9-1.1); Partial Thromboplastin Ratio 1.1; Prothrombin Time 13.4 Seconds (9.0-12.0)
[2020-09-22 06:44] LABS: Calcium 6.7 mg/dl (8.5-10.1); Est GFR (African American) 50.6; Est GFR (Non-African American) 43.6; Magnesium 2.5 mg/dl (1.8-2.4); Potassium 3.8 mmol/L (3.5-5.1)
[2020-09-22 06:48] LABS: Phosphorus 5.2 mg/dl (2.5-4.9)
[2020-09-22] MEDS: ACETAMINOPHEN 1000 MG/100 ML IV IV PRN (07:44)
--- NOTE | 2020-09-22 08:02 | XRay Report ---
XR chest 1V portable CLINICAL HISTORY: cvc insertion COMPARISON STUDY: Chest radiograph September 22, 2020 at 2:31 AM. FINDINGS: There is no pneumothorax placement of a right internal jugular central line. Catheter tip p rojects over the distal SVC. There are small bilateral pleural effusions. There is no evidence for pu lmonary edema. Bibasilar opacities persist. Right basilar opacity slightly improved. IMPRESSION: 1. No pneumothorax following placement of a right internal jugular central line. 2. Persistent bibasilar opacities and small bilateral pleural effusions. ACT 112: Negative or not required by law. Electronically signed by: Ced Coleman M.D. 09/22/2020 8:00 AM
--- NOTE | 2020-09-22 08:07 | XCELERA ---
[id number] \\[id number]
--- NOTE | 2020-09-22 08:17 | Fluoroscopy Report ---
FL retrograde includes kub CLINICAL HISTORY: CYSTO/STENT COMPARISON STUDY: CT scan dated 09/21/2020 FLUOROSCOPY TIME: 41 seconds. NUMBER OF FLUOROSCOPIC IMAGES: 5 FINDINGS: 4 intraprocedural fluoroscopic spot images are provided for interpretation. These demonstra te retrograde catheterization of the right ureter with contrast instillation. No filling defects are visualized within the right renal pelvis. The final images demonstrate placement of a pigtail right-s ided nephroureteral stent. IMPRESSION: Intraprocedural fluoroscopic spot images demonstrating placement of a double pigtail rig ht-sided nephroureteral stent ACT 112: Negative or not required by law. Electronically signed by: Milo Frias M.D. 09/22/2020 8:15 AM
--- NOTE | 2020-09-22 08:19 | Critical Care Progress Note ---
Date of Service September 22, 2020 Assessment & Plan (1) Septic shock: Reason Critically Ill: 60 yo F PMHx significant for migraine, nephrolithiasis, small fiber neuropathy, HTN, anxiety presents to the ICU post ureteral stent placement for right-sided hydroureteronephrosis due to ureteral obstruction and septic shock requiring multiple vasopressors. Neuro - [facility] ICU: Negative Analgesia: Received morphine in the emergency department with AMS and received Narcan. Will continue forward with Tylenol 1000mg IV q8h prn pain. Patient does not desire increase in pain medications. Small fiber neuropathy: - Resume gabapentin 600mg TID. Migraines: - Continue sumatriptan prn migraine. Cardiac - Hypotension and Shock: - Septic shock likely given elevated lactate and procalcitonin, obstructive renal calculus. - Echo this admission shows LVEF 50-55%, no regional wall motion abnormalities, borderline dilated RV with normal RV function. No valvular pathology. - Noted dilated IVC. - Troponin detectable at 0.021, however without chest pain or EKG changes. - Currently on pressors but at decreased dosing as compared to post-op; currently on vasopressin 0.04unit/min, norepinephrine 0.04mcg/kg/min. - Holding home HCTZ in the setting of hypotension requiring vasopressors. - Continuous cardiac monitoring. Respiratory Hypoxic respiratory failure: - No history of pulmonary disease and patient was on room air on admission. - Possibly secondary to pulmonary edema/congestion following IV fluids for septic shock. - Patient is total 6L net positive this admission. - CXR this am with some pulmonary vascular congestion and findings suggestive of atelectasis. Encourage incentive spirometer. - Hold diuretics and monitor at this time given septic shock requiring vasopressors. - Saturating well on 2LNC, continue weaning as tolerated. - Repeat CXR in AM. GI - - Full liquid diet. RENAL/LYTES - MAURISIO: - Creatinine on admission 1.5, within normal limits on prior admissions - Most likely post obstructive as patient was normotensive on admission and would expect to improve - Avoid nephrotoxins, goal MAP >65 for renal perfusion. - Strict Is/Os. - BMP in AM. Obstructive renal calculus causing right-sided hydroureteronephrosis: - Status post emergent right ureteral stent placement via cystoscopy. - Urology following and appreciate recommendations. - Continue Meropenem until cultures results to cover for ESBL and Pseudomonas. - Patient has a robust family history of kidney stones, and has had several in the past herself however has not required ICU level of care in the past. - Hold Flomax at this time. ENDO - - No history of diabetes or thyroid disease. - ICU hyperglycemia protocol. - Random cortisol 40.11, appropriately elevated given septic shock. HEME - - H&H stable, monitor routine CBCs in the setting of recent procedure. ID - Septic shock: - Sepsis 2/2 UTI given hydronephrosis and findings on CT of ppyelonephritis. - Initially started on Rocephin in ED on 09/21 at about 2PM. - Overnight developed fever, hypotension, elevated lactate and procal, mild leukocytosis. - Now on decreased pressor dosing as compared to early this AM. Continue to wean as able. - Patient has been alert, oriented, and conversational throughout workup. - Last recorded fever at 2AM. Monitor fever curve. - UCx and BCx x2 pending. UCx collected in OR. - Nasal MRSA and COVID 19 testing negative. - Given patient had Rocephin in ER and still decompensated, it is possible that patient has a bacterial isolate that would not be covered by Rocephin, and therefore was escalated to Meropenem. - Unlikely to be Enterococcus given catchment area (uncommon in [facility]), though not impossible. Also lower on differential is MRSA infection. Consider escalating antibiotics if improvement plateaus or patient begins to further decompensate despite Meropenem. LINES/IV ACCESS - - PIVs and RIJ in place. - Stinson catheter. DVT PROPHYLAXIS - - SCDs, Heparin 5000u q12h. CODE STATUS - - Full code. Thank you for allowing us to participate in the care of this patient. Please refer to Dr. Moreland's documentation for any further recommendations. (2) Ureterolithiasis: (3) Hypoxia: (4) Hydronephrosis of right kidney: (5) MAURISIO (acute kidney injury): (6) Small fiber neuropathy: (7) Migraine: (8) Anxiety: (9) Hypertension: Admission and Anticipated Discharge Date Admission Date: September 21, 2020 Supervising Physician Co-Signing Physician Notes Dr. Nix was resident physician during care of patient. I separately evaluated patient for webster portions of the history and the exam. I was present during the critical portion of medical decision making, and I discussed the case with the resident. I generally agree with the findings and plan. Presumptive sepsis secondary to pyelonephritis. Weaning vasoactive's at this time. Still requiring Levophed. Subjective Patient is alert and oriented on my interview. No complaints of dizziness or weakness. Does not feel feverish or have chills. Complaints of bladder pressure and headache. States headache is mild, full head, different from her migraines. Is attributing the headache to stress. No nausea, photophobia, phonophobia. Some back pressure on right side, but controlled with intermittent tylenol. Describes that she has not had sensation of shortness of breath despite requiring Oxymask to maintain oxygen saturation this morning. Review of Systems Review of Systems: All systems reviewed & are unremarkable except as noted in HPI & below Constitutional: + malaise; no fever and no chills Respiratory: no cough and no dyspnea Cardiovascular: no chest pain, no palpitations and no edema Gastrointestinal: + abdominal pain (described as pressure); no constipation and no diarrhea/loose stools Neurologic: + headache(s) Physical Exam Constitutional: well developed, + thin, cooperative and comfortable Eyes: PERRL, conjunctivae normal, anicteric sclerae ENMT: external ear and nose normal, oropharynx normal Neck: trachea midline, no thyromegaly Respiratory: normal respiratory effort, lungs clear to auscultation bilaterally Cardiovascular: RRR, no murmur, no edema Extremities: no edema Gastrointestinal (Abdomen): normal bowel sounds, soft, nontender, no hepatosplenomegaly Musculoskeletal: no cyanosis or clubbing, extremities motor strength 5/5 Skin: no rashes, warm and dry Neurologic: PERRL, EOMI, accommodation nl, no face palsy, no dysarthria Psychiatric: A+Ox3, euthymic affect Genitourinary: Indwelling Stinson catheter draining clear sebas urine Results & Data Results & Data ([facility]) Vital Signs (Past 12 Hours) Vital Signs Temp Pulse Pulse Resp BP BP BP 09/22/20 06:45 73 17 116/70 09/22/20 06:30 72 22 118/70 09/22/20 06:15 74 17 93/64 L 09/22/20 06:00 73 26 H 86/59 L 09/22/20 05:45 76 27 H 106/63 09/22/20 05:30 75 24 112/67 09/22/20 05:15 77 24 102/61 09/22/20 05:00 82 20 99/56 L 09/22/20 04:45 86 21 90/49 L 09/22/20 04:37 85 17 81/47 L 09/22/20 04:30 83 18 82/45 L 09/22/20 04:21 84 19 94/54 L 09/22/20 04:15 81 16 95/52 L 09/22/20 04:00 80 16 99/58 L 09/22/20 03:45 80 23 86/50 L 09/22/20 03:32 81 24 81/50 L 09/22/20 03:30 80 21 84/49 L 09/22/20 03:15 81 25 H 81/52 L 09/22/20 03:00 82 25 H 79/48 L 09/22/20 02:54 85 27 H 79/44 L 09/22/20 02:45 86 26 H 73/46 L 09/22/20 02:30 89 13 81/49 L 09/22/20 02:20 96 H 17 83/50 L 09/22/20 02:18 38.0 C H 95 H 26 H 78/47 L 09/22/20 02:15 94 H 23 77/48 L 09/22/20 02:10 95 H 13 84/51 L 09/22/20 02:05 98 H 09/22/20 02:00 96 H 27 H 83/54 L 09/22/20 00:11 39.0 C H 87 14 76/49 L 09/21/20 23:30 38.9 C H 88 14 78/51 L 09/21/20 23:15 38.9 C H 88 14 66/41 L Pulse Ox 09/22/20 06:45 95 09/22/20 06:30 94 09/22/20 06:15 93 09/22/20 06:00 91 09/22/20 05:45 90 09/22/20 05:30 92 09/22/20 05:15 91 09/22/20 05:00 89 L 09/22/20 04:45 90 09/22/20 04:37 90 09/22/20 04:30 90 09/22/20 04:21 93 09/22/20 04:15 93 09/22/20 04:00 91 09/22/20 03:45 93 09/22/20 03:32 93 09/22/20 03:30 93 09/22/20 03:15 93 09/22/20 03:00 93 09/22/20 02:54 92 09/22/20 02:45 91 09/22/20 02:30 92 09/22/20 02:20 93 09/22/20 02:18 91 09/22/20 02:15 86 L 09/22/20 02:10 91 09/22/20 02:05 09/22/20 02:00 90 09/22/20 00:11 95 09/21/20 23:30 94 09/21/20 23:15 92 Critical Care Time Critical Care Time: Yes Total Critical Care Time: 45 I have personally spent 45 minutes of critical care time in the direct management of this patient. This is a life/limb threatening event. This includes time spent evaluating patient, direct bedside care, chart review, placing orders, interpretation of diagnostic studies, discussion with consultants, patient, and/or family members regarding treatment decisions, as well as other required patient management activities. This time is exclusive of all separately billable procedures, and teaching time and separate from and in addition to any other critical care service time. Resident Activity Tracking Resident Involvement: Resident Care Provided Care Provided: Adult Hospital Medicine
--- NOTE | 2020-09-22 08:24 | XRay Report ---
XR chest 1V portable CLINICAL HISTORY: Hypoxia. COMPARISON STUDY: Chest radiograph March 25, 2018. FINDINGS: There is no pneumothorax. Mild elevation of the right hemidiaphragm is noted. There is no e vidence for pulmonary edema. Cardiac size is normal. Mediastinal contours are normal. Right basilar o pacity is present. There is also suspected left basilar opacity. Small right pleural effusion is susp ected. IMPRESSION: 1. Small right pleural effusion with bibasilar opacities that may reflect atelectasis or consolidatio n. 2. Mild elevation of the right hemidiaphragm. ACT 112: Negative or not required by law. Electronically signed by: Ced Coleman M.D. 09/22/2020 8:22 AM
[2020-09-22 08:30] LABS: Albumin Level 2.5 gm/dl (3.4-5.0); Bilirubin Direct 0.2 mg/dl (0-0.2); Bilirubin,Total 0.4 mg/dl (0.2-1); Total Protein 5.4 gm/dl (6.4-8.2)
[2020-09-22] MEDS ORDERED: TAMSULOSIN HCL 0.4 MG CAP PO SCH (09:00)
[2020-09-22] MEDS: MAGNESIUM OXIDE 400 MG TAB PO SCH ×2 (09:03→20:24)
[2020-09-22] MEDS: MEROPENEM 500 MG in SYRINGE 0 ML IV SCH ×3 (09:03→18:46)
--- NOTE | 2020-09-22 11:08 | Electrocardiogram Report ---
Test Reason : Blood Pressure : / mmHG Vent. Rate : 072 BPM Atrial Rate : 072 BPM P-R Int : 128 ms QRS Dur : 098 ms QT Int : 398 ms P-R-T Axes : 073 060 051 degrees QTc Int : 435 ms Normal sinus rhythm Normal ECG When compared with ECG of 25-MAR-2018 09:12, Incomplete right bundle branch block is no longer Present Confirmed by Eliot Eddy ([id number]) on 09/22/2020 11:08:11 AM Referred By: REFERRED SELF Confirmed By:Eliot Eddy
[2020-09-22] MEDS: HEPARIN SOD 5,000 UNIT/0.5 ML VIAL SQ SCH ×2 (12:32→20:23)
[2020-09-22] MEDS: ACETAMINOPHEN 325 MG TAB PO PRN ×2 (12:42→20:25)
[2020-09-22] MEDS: GABAPENTIN 300 MG CAP PO SCH ×2 (16:06→20:23)
--- NOTE | 2020-09-22 23:05 | Hospitalist Progress Note ---
Date of Service September 22, 2020 Assessment & Plan (1) Septic shock: Patient with sepsis and now in septic shock. Patient currently in the ICU with pressors. will defer further management to the ICU team. (2) Urinary tract obstruction due to kidney stone: S/P stent continue antibiotics. (3) MAURISIO (acute kidney injury): Secondary to obstructing stone as above. Avoid further toradol. cont. IVF and pressors (4) Hypoxia: Suspect secondary to morphine use causing reduced inspiratory effort. RR normal in ER. Discussed judicious use of further pain medication. (5) Ureterolithiasis: as above (6) Hydronephrosis of right kidney: as above (7) Small fiber neuropathy: Restart gabapentin when eating (8) DVT prophylaxis: Low risk. No SCDs or chemical prophylaxis. Admission and Anticipated Discharge Date Admission Date: September 21, 2020 Subjective 60 yo female reports feeling tired. She has no new complaints at this time. Review of Systems Review of Systems: All systems reviewed & are unremarkable except as noted in HPI & below Physical Exam Physical Exam: Constitutional: well developed and well nourished; no acute distress Eyes: + anicteric sclerae; normal pupil size ENMT: Ears: no external ear abnormality Nose: no external nose abnormality Respiratory: normal respiratory effort, lungs clear to auscultation Cardiovascular: RRR, no murmur, no edema Gastrointestinal (Abdomen): normal bowel sounds, soft, nontender, no hepatosplenomegaly Musculoskeletal: no cyanosis or clubbing, extremities motor strength 5/5 Skin: no rashes, warm and dry Neurologic: moves all extremities and awake; not confused Psychiatric: A+Ox3, euthymic affect Results & Data Results & Data ([facility]) Vital Signs (Past 12 Hours) Vital Signs Temp Pulse Resp BP Pulse Ox 09/22/20 21:45 65 19 98 09/22/20 21:30 65 12 97 09/22/20 21:15 65 14 97 09/22/20 21:00 67 25 H 93/56 L 98 09/22/20 20:45 65 14 99 09/22/20 20:30 64 19 97 09/22/20 20:15 63 23 97 09/22/20 20:00 64 15 86/56 L 97 09/22/20 19:45 62 19 96 09/22/20 19:30 66 19 97 09/22/20 19:28 62 23 84/51 L 97 09/22/20 19:15 63 19 84/51 L 96 09/22/20 18:15 65 16 83/52 L 98 09/22/20 18:00 65 17 82/54 L 98 09/22/20 17:45 67 21 88/57 L 99 09/22/20 17:30 65 15 85/59 L 97 09/22/20 17:15 65 24 97/58 L 98 09/22/20 17:00 62 19 95/59 L 98 09/22/20 16:45 64 19 100/63 97 09/22/20 16:30 63 23 94/56 L 97 09/22/20 16:15 64 17 99/58 L 97 09/22/20 16:00 37.1 C 62 26 H 95/59 L 98 09/22/20 15:45 60 17 90/53 L 99 09/22/20 15:30 63 19 87/54 L 99 09/22/20 15:15 63 15 83/53 L 99 09/22/20 15:00 37.2 C 64 17 82/53 L 98 09/22/20 14:45 66 21 93/54 L 98 09/22/20 14:30 64 19 90/50 L 99 09/22/20 14:15 63 22 91/52 L 99 09/22/20 14:00 36.9 C 63 21 107/59 L 99 09/22/20 13:45 63 21 92/64 L 98 09/22/20 13:30 63 25 H 95/61 L 99 09/22/20 13:15 68 21 98/61 L 99 09/22/20 13:00 37.0 C 65 21 99/61 L 99 09/22/20 12:46 64 19 99/58 L 98 09/22/20 12:45 64 24 98 09/22/20 12:30 62 15 99/56 L 95 09/22/20 12:15 63 18 97/57 L 96 09/22/20 12:00 64 17 94/57 L 94 09/22/20 11:45 36.6 C 63 16 95 09/22/20 11:30 70 25 H 85/54 L 97 09/22/20 11:15 64 15 95/53 L 96 PG Care Time/CCT Total # of Minutes Spent Total Time Spent with Patient: Total time spent is greater than 50% in coordination of care (as documented) at patient's floor/unit and/or counseling patient: Coding Level of Care Code 26506 Subseq Hosp Care Lvl 3 Diagnoses Septic shock A41.9; R65.21 Urinary tract obstruction due to kidney stone N20.0; N13.8 MAURISIO (acute kidney injury) N17.9 Hypoxia R09.02 Ureterolithiasis N20.1 Hydronephrosis of right kidney N13.30 Small fiber neuropathy G62.9 DVT prophylaxis Z29.9 Time Spent (min) 35
[2020-09-23] MEDS: MEROPENEM 500 MG in SYRINGE 0 ML IV SCH ×5 (02:24→20:45)
[2020-09-23] MEDS: ACETAMINOPHEN 1000 MG/100 ML IV IV PRN (02:25)
[2020-09-23 05:12] LABS: Hemoglobin 10.5 g/dL (12.0-16.0); Mean Corpuscular Hgb Conc 31.8 g/dL (32-36); Mean Corpuscular Volume 94.3 fL (80-100); Mean Platelet Volume 12.2 fL (7.4-10.4); Platelet Count 72 K/uL (130-400); RDW Coefficient of Variation 14.9 % (11.5-14.5); RDW Standard Deviation 51.2 fL (36.4-46.3); White Blood Count 8.45 K/uL (4.8-10.8)
[2020-09-23 05:37] LABS: Basophils # (auto) 0.01 K/uL (0-0.2); Basophils % (auto) 0.1 %; Dohle Bodies 1+; Echinocytes 1+; Eosinophils # (auto) 0.01 K/uL (0-0.5); Eosinophils % (auto) 0.1 %; Immature Granulocytes # (auto) 0.55 K/uL (0.00-0.02); Immature Granulocytes % (auto) 6.5 %; Lymphocytes # (auto) 0.82 K/uL (1.2-3.4); Lymphocytes % (auto) 9.7 %; Monocytes # (auto) 0.61 K/uL (0.11-0.59); Monocytes % (auto) 7.2 %; Neutrophils # (auto) 6.45 K/uL (1.4-6.5); Neutrophils % (auto) 76.4 %; Toxic Vacuolation 1+
[2020-09-23 05:54] LABS: BUN Creatinine Ratio 39.5 (10-20); Calcium 7.5 mg/dl (8.5-10.1); Creatinine Clr Calc Pharmacy 53.8 ml/min; Est GFR (African American) 82.2; Est GFR (Non-African American) 70.9; Magnesium 2.9 mg/dl (1.8-2.4); Phosphorus 2.1 mg/dl (2.5-4.9); Potassium 4.4 mmol/L (3.5-5.1)
[2020-09-23] MEDS: VASOPRESSIN 20 UNITS in 0.9 % SODIUM CHLORIDE 100 ML IV SCH (06:16)
[2020-09-23] MEDS: NOREPINEPHRINE BIT INJ 8 MG in DEXTROSE 5% 500 ML IV SCH (06:16)
--- NOTE | 2020-09-23 06:31 | Critical Care Progress Note ---
Date of Service September 23, 2020 Assessment & Plan (1) Septic shock: Reason Critically Ill: 60 yo F PMHx significant for migraine, nephrolithiasis, small fiber neuropathy, HTN, anxiety presents to the ICU post ureteral stent placement for right-sided hydroureteronephrosis due to ureteral obstruction and septic shock requiring multiple vasopressors. Neuro - Analgesia: - Received morphine in the emergency department with AMS and received Narcan. Tylenol prn pain. Small fiber neuropathy: - Continue gabapentin 600mg TID. Migraines: - Continue sumatriptan prn migraine. Cardiac - Hypotension and Shock: - Septic shock due to pyelonephritis is likely given elevated lactate and procalcitonin, obstructive renal calculus. - Lactate and procal downtrending with treatment of pyelonephritis. - Echo this admission shows LVEF 50-55%, no regional wall motion abnormalities, borderline dilated RV with normal RV function. No valvular pathology. - Noted dilated IVC. - Troponin detectable at 0.021, however without chest pain or EKG changes. - Pressors d/c'ed overnight, BP 80-110s/50-60s off pressors. - Holding home HCTZ in the setting of hypotension requiring vasopressors. Will resume when patient is more hemodynamically stable. - Continuous cardiac monitoring. - PT/OT orders placed. Respiratory Hypoxic respiratory failure: - No history of pulmonary disease and patient was on room air on admission. - Possibly secondary to pulmonary edema/congestion following IV fluids for septic shock. - Patient is total 6L net positive this admission. - CXR 09/22 with some pulmonary vascular congestion and findings suggestive of atelectasis. Encourage incentive spirometer. - Diuretics avoided at that time due to septic shock. - Patient does not appear fluid overloaded on my exam this morning. - Saturating well on room air. GI - - Given patient is off of pressors and inflammatory markers improving, will escalate to regular diet. RENAL/LYTES - MAURISIO: - Creatinine on admission 1.5, within normal limits on prior labwork. - Most likely post obstructive as patient was normotensive on admission. - Improved to baseline creatinine 0.89 this AM; improvement likely due to stent placement and sepsis treatment. - Avoid nephrotoxins, goal MAP >65 for renal perfusion. - Strict Is/Os. Obstructive renal calculus causing right-sided hydroureteronephrosis: - Status post emergent right ureteral stent placement via cystoscopy on 11 AM. - Urology following and appreciate recommendations. - Continue Meropenem until cultures result to cover for ESBL and Pseudomonas. - Patient has a robust family history of kidney stones, and has had several in the past herself however has not required ICU level of care in the past. - Hold Flomax at this time. ENDO - - No history of diabetes or thyroid disease. - ICU hyperglycemia protocol. - Random cortisol 40.11, appropriately elevated given septic shock. HEME - - Hgb 10.5 this AM, stable from yesterday however overall drop from 13.4 prior to stenting. - Monitor routine CBCs. - Platelets dropped to 80s following stent procedure. This AM plts 74, no bleeding. - Continue to monitor. No changes in anticoagulant at this time. - CBC in AM to monitor platelet count. ID - Septic shock: - Sepsis 2/2 UTI given hydronephrosis and findings on CT of pyelonephritis. - Initially started on Rocephin in ED on 09/21 at about 2PM. - Overnight on 09/21 patient developed hypotension, elevated lactate and procal, mild leukocytosis. - Now on decreased pressor dosing as compared to early this AM. Continue to wean as able. - Patient has been alert, oriented, and conversational throughout workup. - Nasal MRSA and COVID 19 testing negative. - Last recorded fever on 09/22 at 2AM. Monitor fever curve. - UCx and BCx x2 pending; this AM UCx with gram negative growth with antibiotic inhibition. UCx was collected about 12 hours following administration of Rocephin. - Given patient had Rocephin in ER and still decompensated and still has bacterial growth on UCx (though with antibiotic inhibition), it is possible that patient has a bacterial isolate that would not be completely covered by Rocephin. Continue Meropenem until final culture and sensitivity results. - Unlikely to be Enterococcus given catchment area (uncommon in [facility]), though not impossible. Also lower on differential is MRSA infection. Consider escalating antibiotics if improvement plateaus or patient begins to further decompensate despite Meropenem. LINES/IV ACCESS - - PIVs and RIJ in place. - Stinson catheter. DVT PROPHYLAXIS - - SCDs, Heparin 5000u q12h. CODE STATUS - - Full code. Thank you for allowing us to participate in the care of this patient. This patient is stable from ICU perspective for downgrade to Med/Surg level of care. Please refer to Dr. Moreland's documentation for any further recommendations. Admission and Anticipated Discharge Date Admission Date: September 21, 2020 Supervising Physician Co-Signing Physician Notes Dr. Nix was resident physician during care of patient. I separately evaluated patient for webster portions of the history and the exam. I was present during the critical portion of medical decision making, and I discussed the case with the resident. I generally agree with the findings and plan. Patient's hemodynamics have improved, no history of arrhythmia stable for downgrade out of the ICU. Subjective Patient without acute events overnight. Was taken off of pressors overnight and BP stasble 80-110s/50-60s. Complaints of headache this AM more consistent with her typical migraine, requesting sumatriptan. Also complaining of right sided back pain, did not worsen overnight. Denies chest pain, shortness of breath, nausea, dizziness, abdominal pain. Feels weak which is frustrating for her has she is a very active person and not used to "lying around". Review of Systems Review of Systems: All systems reviewed & are unremarkable except as noted in HPI & below Constitutional: + weakness (full body); no fever and no chills Respiratory: no cough and no dyspnea Cardiovascular: no chest pain, no palpitations and no edema Gastrointestinal: no abdominal pain, no constipation and no diarrhea/loose stools Neurologic: + headache(s) Physical Exam Constitutional: well developed, + thin, cooperative and comfortable Eyes: PERRL, conjunctivae normal, anicteric sclerae ENMT: external ear and nose normal, oropharynx normal Neck: trachea midline, no thyromegaly Respiratory: normal respiratory effort, lungs clear to auscultation bilaterally Cardiovascular: RRR, no murmur, no edema Extremities: no edema Gastrointestinal (Abdomen): normal bowel sounds, soft, nontender, no hepatosplenomegaly Musculoskeletal: no cyanosis or clubbing, extremities motor strength 5/5 Skin: no rashes, warm and dry Neurologic: PERRL, EOMI, accommodation nl, no face palsy, no dysarthria Psychiatric: A+Ox3, euthymic affect Genitourinary: Indwelling Stinson catheter draining clear sebas urine Results & Data Results & Data ([facility]) Vital Signs (Past 12 Hours) Vital Signs Pulse Resp BP Pulse Ox 09/23/20 05:00 58 L 19 99/56 L 97 09/23/20 04:00 58 L 15 104/50 L 98 09/23/20 03:00 64 24 115/62 98 09/23/20 02:30 59 L 12 99 09/23/20 02:01 59 L 13 109/52 L 99 09/23/20 02:00 58 L 16 98 09/23/20 01:30 61 13 97 09/23/20 01:00 58 L 21 96/53 L 98 09/23/20 00:30 60 17 99 09/23/20 00:15 58 L 18 98 09/23/20 00:00 59 L 18 92/51 L 98 09/22/20 23:45 59 L 17 98 09/22/20 23:30 62 19 98 09/22/20 23:15 58 L 18 97 09/22/20 23:00 60 17 81/51 L 97 09/22/20 22:45 64 18 97 09/22/20 22:30 63 17 97 09/22/20 22:15 63 18 97 09/22/20 22:00 63 17 81/50 L 97 09/22/20 21:45 65 19 98 09/22/20 21:30 65 12 97 09/22/20 21:15 65 14 97 09/22/20 21:00 67 25 H 93/56 L 98 09/22/20 20:45 65 14 99 09/22/20 20:30 64 19 97 09/22/20 20:15 63 23 97 09/22/20 20:00 64 15 86/56 L 97 09/22/20 19:45 62 19 96 09/22/20 19:30 66 19 97 09/22/20 19:28 62 23 84/51 L 97 09/22/20 19:15 63 19 84/51 L 96 Resident Activity Tracking Resident Involvement: Resident Care Provided Care Provided: Adult Hospital Medicine
[2020-09-23] MEDS: MAGNESIUM OXIDE 400 MG TAB PO SCH ×2 (08:00→21:30)
[2020-09-23] MEDS: HEPARIN SOD 5,000 UNIT/0.5 ML VIAL SQ SCH ×2 (08:00→20:43)
[2020-09-23] MEDS: GABAPENTIN 300 MG CAP PO SCH ×3 (08:00→20:41)
[2020-09-23] MEDS: SUMAtriptan succinate 50 MG TAB PO PRN (08:01)
--- NOTE | 2020-09-23 08:06 | Urology Progress Note ---
Date of Service September 23, 2020 Assessment & Plan (1) Ureterolithiasis: (2) Sepsis: (3) Hydronephrosis due to obstruction of ureter: 60 year-old female patient admitted with sepsis secondary to obstructing 8 mm right proximal ureteral calculus. -POD #2 cystoscopy with right retrograde pyelogram, aspiration, and right stent placement. -Clinically progressing as expected. -Remains afebrile. -Labs reviewed - white count and creatinine improving. -Urine and blood cultures x2 pending, currently on IV Meropenem. -Continue with supportive care and antibiotic therapy. -Will likely need at least 10-14 days antibiotic duration. -Plan to arrange outpatient follow-up with urology service to discuss stone management once infection resolved. -Continue to follow while inpatient. Admission and Anticipated Discharge Date Admission Date: September 21, 2020 Supervising Physician Co-Signing Physician Notes agree with above Subjective POD #2 cystoscopy with right retrograde pyelogram, aspiration, and right stent placement. Patient feeling average overall. No reported issues overnight. Does report lower back pain from laying in bed. Denies significant flank or abdominal pain. Reports headache this morning. Denies bladder pain or pressure. Stinson catheter intact, clear yellow urine. Denies nausea or vomiting. Denies fevers or chills but does report she feels "warm". Chart review: Wbc 8.45 Hgb 10.5 Creatinine 0.89 Urine and blood cultures pending. Patient currently on IV Meropenem. Denies additional urologic concerns today. Review of Systems Constitutional: as per Subjective / HPI; no fever and no chills Gastrointestinal: as per Subjective / HPI; no nausea and no vomiting Genitourinary: as per Subjective / HPI Musculoskeletal: as per Subjective / HPI Neurologic: as per Subjective / HPI Physical Exam Constitutional: well developed and well nourished; no acute distress and not ill appearing Appears fatigued. Respiratory: normal respiratory effort and able to speak in complete sentences; no respiratory distress and no audible wheezes Gastrointestinal (Abdomen): Inspection/Auscultation: abdomen normal to inspection; abdomen not distended Percussion/Palpation: abdomen soft; abdomen nontender and no guarding Psychiatric: Orientation: alert, oriented x 3 and cooperative Affect: euthymic affect Genitourinary: no CVA tenderness Stinson catheter intact draining clear yellow urine. Results & Data ([facility]) Vital Signs (Past 12 Hours) Vital Signs Pulse Resp BP Pulse Ox 09/23/20 05:00 58 L 19 99/56 L 97 09/23/20 04:00 58 L 15 104/50 L 98 09/23/20 03:00 64 24 115/62 98 09/23/20 02:30 59 L 12 99 09/23/20 02:01 59 L 13 109/52 L 99 09/23/20 02:00 58 L 16 98 09/23/20 01:30 61 13 97 09/23/20 01:00 58 L 21 96/53 L 98 09/23/20 00:30 60 17 99 09/23/20 00:15 58 L 18 98 09/23/20 00:00 59 L 18 92/51 L 98 09/22/20 23:45 59 L 17 98 09/22/20 23:30 62 19 98 09/22/20 23:15 58 L 18 97 09/22/20 23:00 60 17 81/51 L 97 09/22/20 22:45 64 18 97 09/22/20 22:30 63 17 97 09/22/20 22:15 63 18 97 09/22/20 22:00 63 17 81/50 L 97 09/22/20 21:45 65 19 98 09/22/20 21:30 65 12 97 09/22/20 21:15 65 14 97 09/22/20 21:00 67 25 H 93/56 L 98 09/22/20 20:45 65 14 99 09/22/20 20:30 64 19 97 09/22/20 20:15 63 23 97 PG Care Time/CCT Total # of Minutes Spent Total Time Spent with Patient: Total time spent is greater than 50% in coordination of care (as documented) at patient's floor/unit and/or counseling patient: Coding Level of Care Code None Diagnoses Ureterolithiasis N20.1 Sepsis A41.9 Hydronephrosis due to obstruction of ureter N13.2
--- NOTE | 2020-09-23 08:10 | Billing Data ---
Date of Service September 23, 2020 Coding Level of Care Code 42650 Subseq Hosp Care Lvl 2
--- NOTE | 2020-09-23 08:10 | Billing Data ---
Date of Service September 22, 2020 Coding Level of Care Code Critical Care 1st 30-74 mins Time Spent (min) 45
[2020-09-23] MEDS ORDERED: diphenhydrAMINE HCL 25 MG/10 ML UDC PO ONE (12:08)
[2020-09-23] MEDS ORDERED: PROCHLORPERAZINE 10 MG in SYRINGE 8 ML IV ONE (12:08)
[2020-09-23] MEDS: ACETAMINOPHEN 325 MG TAB PO PRN ×2 (18:02→22:01)
--- NOTE | 2020-09-23 22:26 | Hospitalist Progress Note ---
Date of Service September 23, 2020 Assessment & Plan (1) Septic shock: Patient with sepsis and was in septic shock. Secondary from pyelonephritis and complicated from block due to kidney stone. Patient currently in the ICU as she was requiring pressors. Stopped this overnight, ICU feels patient is ready for downgrade. Continue Meropenem until cultures result to cover for ESBL and Pseudomonas. inflammatory markers decreasing, patient improving. (2) Urinary tract obstruction due to kidney stone: S/P stent continue antibiotics. (3) MAURISIO (acute kidney injury): Secondary to obstructing stone as above. Avoid further toradol. cont. IVF and pressors (4) Hypoxia: Suspect secondary to morphine use causing reduced inspiratory effort. RR normal in ER. Discussed judicious use of further pain medication. Now on 4 liters nasal cannula. (5) Ureterolithiasis: as above (6) Hydronephrosis of right kidney: as above (7) Small fiber neuropathy: Restart gabapentin when eating (8) DVT prophylaxis: Low risk. No SCDs or chemical prophylaxis. (9) Migraine: chronic migraines, intense, mildly improved with imitrex. will try combination with benadryl and compazine. Admission and Anticipated Discharge Date Admission Date: September 21, 2020 Subjective Patient feels wiped out, she is surprised to have such low energy. is at bedside. She states she has a headache accompanied by photophobia, that is moderate to severe and feels like a band pressing on the back of her head. It is different from her normal headaches which feel like a sharp pain in her right eye that goes straight back, Review of Systems Review of Systems: All systems reviewed & are unremarkable except as noted in HPI & below Physical Exam Physical Exam: Constitutional: well developed and well nourished; no acute distress Eyes: + anicteric sclerae; normal pupil size ENMT: Ears: no external ear abnormality Nose: no external nose abnormality Respiratory: normal respiratory effort, lungs clear to auscultation Cardiovascular: RRR, no murmur, no edema Gastrointestinal (Abdomen): normal bowel sounds, soft, nontender, no hepatosplenomegaly Musculoskeletal: no cyanosis or clubbing, extremities motor strength 5/5 Skin: no rashes, warm and dry Neurologic: moves all extremities and awake; not confused Psychiatric: A+Ox3, euthymic affect Results & Data Results & Data ([place]) Vital Signs (Past 12 Hours) Vital Signs Temp Pulse Pulse Resp BP BP BP 09/23/20 20:40 36.8 C 74 16 108/64 09/23/20 15:17 37.2 C 69 16 116/77 09/23/20 13:30 37.1 C 67 16 104/66 09/23/20 12:00 37.0 C 67 16 104/62 09/23/20 11:48 68 20 103/63 09/23/20 11:00 67 21 84/51 L Pulse Ox 09/23/20 20:40 92 09/23/20 15:17 98 09/23/20 13:30 96 09/23/20 12:00 97 09/23/20 11:48 97 09/23/20 11:00 97 PG Care Time/CCT Total # of Minutes Spent Total Time Spent with Patient: Total time spent is greater than 50% in coordination of care (as documented) at patient's floor/unit and/or counseling patient: Coding Level of Care Code 16879 Subseq Hosp Care Lvl 3 Diagnoses Septic shock A41.9; R65.21 Urinary tract obstruction due to kidney stone N20.0; N13.8 MAURISIO (acute kidney injury) N17.9 Hypoxia R09.02 Ureterolithiasis N20.1 Hydronephrosis of right kidney N13.30 Small fiber neuropathy G62.9 DVT prophylaxis Z29.9 Migraine G43.909 Time Spent (min) 35
[2020-09-24] MEDS: MEROPENEM 500 MG in SYRINGE 0 ML IV SCH ×2 (03:34→09:05)
[2020-09-24] MEDS: ACETAMINOPHEN 325 MG TAB PO PRN ×3 (04:09→15:34)
[2020-09-24 07:09] LABS: Hematocrit (blood only) 34.4 % (37-47); Hemoglobin 11.2 g/dL (12.0-16.0); Mean Corpuscular Hemoglobin 30.4 pg (25-34); Mean Corpuscular Hgb Conc 32.6 g/dL (32-36); Mean Corpuscular Volume 93.5 fL (80-100); RDW Coefficient of Variation 14.7 % (11.5-14.5); RDW Standard Deviation 50.4 fL (36.4-46.3); Red Blood Count 3.68 M/uL (4.2-5.4); White Blood Count 11.57 K/uL (4.8-10.8)
[2020-09-24 07:12] LABS: Mean Platelet Volume 11.5 fL (7.4-10.4); Platelet Count 80 K/uL (130-400)
[2020-09-24 07:39] LABS: BUN Creatinine Ratio 22.3 (10-20); Creatinine Clr Calc Pharmacy 68.4 ml/min; Est GFR (African American) 109.9; Est GFR (Non-African American) 94.8; Magnesium 2.3 mg/dl (1.8-2.4); Potassium 3.8 mmol/L (3.5-5.1)
[2020-09-24] MEDS ORDERED: POTASSIUM PHOS 3 MMOL/1 ML INFUSION IV STA (08:23)
[2020-09-24] MEDS ORDERED: POTASSIUM PHOSPHATE 30 MMOL in SODIUM CHLORIDE 0.9% 500 ML IV ONE (08:45)
[2020-09-24] MEDS: GABAPENTIN 300 MG CAP PO SCH ×3 (08:53→20:36)
[2020-09-24] MEDS: MAGNESIUM OXIDE 400 MG TAB PO SCH ×2 (08:55→20:36)
[2020-09-24] MEDS: HEPARIN SOD 5,000 UNIT/0.5 ML VIAL SQ SCH ×2 (08:55→20:36)
[2020-09-24] MEDS: CIPROFLOXACIN 500 MG TAB PO SCH ×2 (10:28→20:36)
--- NOTE | 2020-09-24 14:54 | Hospitalist Progress Note ---
Date of Service September 24, 2020 Assessment & Plan (1) Urinary tract obstruction due to kidney stone: S/p stent. - Continue antibiotics x 10-14 days per urology. - Switched to ciprofloxacin today for mast-sensitive Klebsiella. (2) Septic shock: Patient with sepsis and was in septic shock. Secondary from pyelonephritis and complicated from block due to kidney stone. - Resolved (3) MAURISIO (acute kidney injury): Secondary to obstructing stone as above. - Back to baseline of 0.7 by 09/24. (4) Small fiber neuropathy: - Restarted gabapentin (5) Migraine: Chronic migraines, intense. Previously treated with Imitrex. - Monitor (6) DVT prophylaxis: Heparin 5000 units SQ Q12h Admission and Anticipated Discharge Date Admission Date: September 21, 2020 Subjective Feeling better today. No major concerns today. Is anxious about possible discharge. Reports no fevers/chills, chest pain, shortness of breath, abdominal pain, nausea, or vomiting. Physical Exam Constitutional: WD/WN, vitals as above Eyes: EOM intact bilaterally; no conjunctival abnormality ENMT: external ear and nose normal, oropharynx normal Neck: trachea midline, no thyromegaly normal visual inspection Respiratory: normal respiratory effort, lungs clear to auscultation no respiratory distress Cardiovascular: RRR, no murmur, no edema Gastrointestinal (Abdomen): Inspection/Auscultation: abdomen normal to inspection; abdomen not distended Musculoskeletal: no cyanosis or clubbing, extremities motor strength 5/5 Skin: no rashes, warm and dry Neurologic: moves all extremities and awake Psychiatric: Orientation: alert, oriented to person and cooperative Results & Data Results & Data ([facility]) Vital Signs (Past 12 Hours) Vital Signs Temp Pulse Resp BP BP Pulse Ox 09/24/20 12:45 94 09/24/20 10:32 91 09/24/20 07:30 37 C 70 16 106/66 92 09/24/20 04:32 94/68 L 09/24/20 04:31 111/70 09/24/20 03:58 109/69 PG Care Time/CCT Total # of Minutes Spent Total Time Spent with Patient: Total time spent is greater than 50% in coordination of care (as documented) at patient's floor/unit and/or counseling patient: Coding Level of Care Code 24848 Subseq Hosp Care Lvl 2 Diagnoses Urinary tract obstruction due to kidney stone N20.0; N13.8 Septic shock A41.9; R65.21 MAURISIO (acute kidney injury) N17.9 Small fiber neuropathy G62.9 Migraine G43.909 DVT prophylaxis Z29.9
[2020-09-24] MEDS: SUMAtriptan succinate 50 MG TAB PO PRN (19:26)
[2020-09-25] MEDS: ACETAMINOPHEN 325 MG TAB PO PRN (01:32)
[2020-09-25 06:27] LABS: Hemoglobin 11.9 g/dL (12.0-16.0); Mean Corpuscular Hemoglobin 29.6 pg (25-34); Mean Corpuscular Hgb Conc 32.2 g/dL (32-36); RDW Coefficient of Variation 14.2 % (11.5-14.5); RDW Standard Deviation 48.3 fL (36.4-46.3); Red Blood Count 4.02 M/uL (4.2-5.4); White Blood Count 10.32 K/uL (4.8-10.8)
[2020-09-25 06:32] LABS: Mean Platelet Volume 11.4 fL (7.4-10.4); Platelet Count 99 K/uL (130-400)
[2020-09-25 07:04] LABS: BUN Creatinine Ratio 16.2 (10-20); Calcium 8.2 mg/dl (8.5-10.1); Creatinine Clr Calc Pharmacy 78.5 ml/min; Est GFR (Non-African American) 99.2; Potassium 3.7 mmol/L (3.5-5.1)
[2020-09-25] MEDS: HEPARIN SOD 5,000 UNIT/0.5 ML VIAL SQ SCH (07:39)
[2020-09-25] MEDS: CIPROFLOXACIN 500 MG TAB PO SCH (08:43)
[2020-09-25] MEDS: MAGNESIUM OXIDE 400 MG TAB PO SCH (08:44)
[2020-09-25] MEDS: GABAPENTIN 300 MG CAP PO SCH (08:44)
--- NOTE | 2020-09-25 14:37 | Discharge Summary ---
Date of Service September 25, 2020 Admission HPI Per Admitting Provider Penelope Rapp is a 60 year old female who presents to the ER with right flank pain for the last 2 days. Became much worse overnight last night and went to see her PCP today who referred her to the ER for further evaluation. Associated hematuria. No fevers or chills, dysuria. She has a significant history of kidney stones requiring prior ureteral stent and lithotripsy but has not had one for many years. She reports actually trying to lie still and the pain improves but worse on any movement. Currently after morphine the pain is "tolerable" but severity 10/10 on palpation or any movement. In addition she has been belching frequently in the ER for the last 15 minutes. No abdominal pain, change in bowels, melena, prior history of gastric ulcers or bleeds. In the ER imaging confirmed an 8mm right sided proximal obstructing stone causing moderate-severe hydronephrosis. She was referred to medicine for admission. UA showed no bacteria on microscopy or nitrites, 1+ LE, 5-10 RBC and WBCs. Principal Diagnosis Pyelonephritis and obstructing stone Discharge Exam Constitutional WD/WN, vitals as above Eyes EOM intact bilaterally; no conjunctival abnormality ENMT external ear and nose normal, oropharynx normal Neck trachea midline, no thyromegaly normal visual inspection Respiratory normal respiratory effort, lungs clear to auscultation no respiratory distress Cardiovascular RRR, no murmur, no edema Gastrointestinal (Abdomen) Inspection/Auscultation: abdomen normal to inspection; abdomen not distended Musculoskeletal no cyanosis or clubbing, extremities motor strength 5/5 Skin no rashes, warm and dry Neurologic moves all extremities and awake Psychiatric Orientation: alert, oriented to person and cooperative Discharge Data Allergies Allergy/AdvReac Type Severity Reaction Status Date / Time Iodinated Contrast Media Allergy Unknown Unknown Verified 09/21/20 13:19 Consultations 09/21/20 14:25 ED Decision to Admit Stat 09/21/20 15:36 Consult Urology Routine 09/22/20 02:13 Consult Manager Contact Routine Procedures Performed Operation Date: 09/21/20 23:59 Actual Procedures p Ureteral Stent Insertion(Right) - Rolly Alvarenga DO s Cystoscopy, Right Retrograde Pyelogram, (Right) - Rolly Alvarenga DO Ordered Studies 09/21/20 11:47 CT abd pelvis wo con Stat 09/22/20 [place] retrograde includes kub Stat 09/22/20 04:39 US point of care ultrasound Stat Hospital Course (1) Urinary tract obstruction due to kidney stone: S/p stent. - Continue antibiotics x 10-14 days per urology. - Switched to ciprofloxacin today for mast-sensitive Klebsiella. Discharged on 10 additional days. Will follow up with urology for stent removal and lithotripsy. Phone number given and will call on Saturday. - Also sent with tamsulosin (2) Septic shock: Patient with sepsis and was in septic shock. Secondary from pyelonephritis and complicated from block due to kidney stone. - Resolved (3) MAURISIO (acute kidney injury): Secondary to obstructing stone as above. - Back to baseline of 0.7 by 09/24. (4) Small fiber neuropathy: - Restarted gabapentin (5) Migraine: Chronic migraines, intense. Previously treated with Imitrex. - Monitor (6) DVT prophylaxis: Heparin 5000 units SQ Q12h Total Time Total Time Spent Total Time Spent (In Minutes): 35 Discharge Plan Discharge Items Patient Disposition: Home - Self-Care Reason For Visit: OBSTRUCTION URETEROLITHIASIS, HYDROURETERONEPHROSI Discharge Diagnosis: Obstructing kidney stone with infection Activity: Resume your previous activity Non-emergency contact: Primary Care Provider and Urologist Call non-emergency contact if: your symptoms worsen Follow-up/Referrals: Dasia Medrano MD [Primary Care Provider] - Rolly Alvarenga DO [Physician] - (Please call the urology office on Saturday for a follow-up appointment to remove your stent.) Diet: Regular Addtl Attending Provider Instructions: You were admitted to the hospital with an infection in the kidney from a blocking kidney stone. We gave you antibiotics, and the urology team put in a stent to help relieve the blockage. Please take the antibiotic (ciprofloxacin) two times per day until it is entirely gone. Your next dose will be tonight before bedtime. Please also take the tamsulosin which helps your urine pass more easily. Please follow up with the urology team to have your stent removed and the kidney stone broken up. Pending Studies at Discharge: No Stand-Alone Forms: My [employer], Smoking Cessation Medications and DC Order Prescriptions: New ciprofloxacin HCl 500 mg Tablet 500 mg PO BID Qty: 20 RF: 0 tamsulosin 0.4 mg Capsule 0.4 mg PO QAM Qty: 14 RF: 0 Continued hydrochlorothiazide 25 mg tablet 25 mg PO DAILY Qty: 90 RF: 1 gabapentin 300 mg capsule 600 mg PO TID 90 Days Qty: 540 RF: 1 sumatriptan succinate 50 mg tablet 50 mg PO UD MDD 200 mg/day PRN (Reason: Migraine Headache) RF: 0 lorazepam 1 mg tablet 1 mg PO HS PRN (Reason: anxiety) RF: 0 Discharge Orders: Discharge Order (Routine); Ordered 09/25/20 Ordered By: Toby Matthews Admission Data Admit Date/Time: 09/21/20 15:41 Attending Provider: Toby Matthews Admit Provider: Gavino Fulton Primary Care Provider: Dasia Medrano Other Providers: Rolly Alvarenga ; Will Moreland ; Toby Matthews Other Interventions: Discharge Summary Assessment (RN) Last Done: 09/25/20 09:55 Coding Level of Care Code D/C Day Management >30 mins Diagnoses Urinary tract obstruction due to kidney stone N20.0; N13.8 Septic shock A41.9; R65.21 MAURISIO (acute kidney injury) N17.9 Small fiber neuropathy G62.9 Migraine G43.909 DVT prophylaxis Z29.9
--- NOTE | 2020-09-25 20:22 | Electrocardiogram Report ---
Test Reason : Blood Pressure : / mmHG Vent. Rate : 066 BPM Atrial Rate : 066 BPM P-R Int : 118 ms QRS Dur : 092 ms QT Int : 428 ms P-R-T Axes : 058 024 024 degrees QTc Int : 448 ms Normal sinus rhythm Normal ECG When compared with ECG of 22-SEP-2020 07:46, No significant change was found Confirmed by Eliot Eddy ([id number]) on 09/25/2020 8:21:40 PM Referred By: REFERRED SELF Confirmed By:Eliot Eddy
== END 2020-09-25 10:46 | disposition home or self-care (01) | DRG 659 ==
LOC: ED 11:20 → SUATTDRO 15:41 → 3W 15:41 → 2S 09-22 00:35 → 1E 09-22 01:42 → 3N 09-23 13:40

== ENCOUNTER 2024-04-27 07:10 | Observation (INO) ==
--- NOTE | 2024-04-27 07:33 | Emergency Department Note ---
History of Present Illness General Chief complaint: Back Injury/Pain Time Seen by Provider: 04/27/24 07:17 History of Present Illness Maximum Pain Intensity: 9 This is a 63-year-old female that presents to the emergency department via private vehicle with complaints of "back pain". The patient notes the low back pain began yesterday. It wraps around to the bilateral anterior hips. She states that she is scheduled for a colonoscopy later today and has been undergoing the colonoscopy prep. Last food intake was on Saturday. Patient denies any associated fevers, chills, nausea or vomiting. She denies any pertinent past medical history or surgeries. She notes allergies to IV contrast dye for CAT scans and ciprofloxacin. She denies any bowel or bladder incontinence, no numbness or tingling in the genital region. She denies any numbness or tingling radiating to the legs. No pain radiating into the legs. Patient has a history of diverticulitis and this pain feels similar but is in a different location. Pain is worse when she attempts to stand up. Current pain 07/21. No history of spine surgery. Home Medications Medication Instructions Recorded Confirmed Type ascorbic acid (vitamin C) 500 mg 500 mg PO QAM 10/21/20 04/27/24 History tablet (Vitamin C) melatonin 10 mg tablet 20 mg PO HS 10/21/20 04/27/24 History zinc acetate 50 mg (zinc) capsule 50 mg PO DAILY 05/01/22 04/27/24 History cholecalciferol (vitamin D3) 125 125 mcg PO DAILY 02/25/23 04/27/24 History mcg (5,000 unit) capsule hydrochlorothiazide 25 mg tablet 25 mg PO QAM #120 tabs 05/21/23 04/27/24 Rx magnesium oxide 400 mg PO DAILY 06/07/23 04/27/24 History quercetin 500 mg capsule 500 mg PO QAM 07/23/23 04/27/24 History sumatriptan succinate 50 mg tablet See Rx Instructions PO .COMPLEX 07/23/23 04/27/24 Rx PRN migraine headache #30 tabs vitamin B complex 1 tab PO DAILY 07/23/23 04/27/24 History lorazepam 1 mg tablet 1 mg PO HS PRN anxiety #30 tabs 04/07/24 04/27/24 Rx peg 3350-electrolytes 236 240 ml PO Q10M #4,000 mL 04/16/24 04/27/24 Rx gram-22.74 gram-6.74 gram-5.86 gram solution (GaviLyte-G) Allergies Allergy/AdvReac Type Severity Reaction Status Date / Time Iodinated Contrast Media Allergy Severe Anaphylaxis Verified 04/14/24 13:57 ciprofloxacin [From Cipro] AdvReac Mild N/V, GI Verified 04/14/24 13:57 pain, diarrhea Past Med/Surg History Problem List (Updated 04/27/24 @ 08:25 by Narciso Olivares PA-C) Low back pain (Acute) Encounter for pre-operative examination Osteopenia after menopause Asymptomatic menopausal state Post-menopausal Thyroid nodule Naun's thyroiditis Abnormal thyroid blood test Vulvitis Small fiber neuropathy Anxiety (Chronic) Hypertension (Chronic) Migraine (Chronic) Medical History Abnormal thyroid blood test denies any thyroid issues or nodules, states was misdiagnosed w/ thyroid disease Osteopenia Hx of diverticulitis of colon History of COVID-19 10/31/20 (preop test COVID +/asymptomatic), subsequent COVID test 11/25/20 negative Small fiber neuropathy History of pancreatitis idiopathic; 30 years ago History of nephrolithiasis History of migraine Restless leg syndrome Sepsis hx- r/t kidney stone Ureterolithiasis hx External hemorrhoids Surgical History S/P ureteral stent placement History of lithotripsy Right ESWL (12/02/20): LMA#4 at [facility] [place] History of colonoscopy S/P cystoscopy with ureteral stent placement cystoscopy, stent (09/21/20) S/P tonsillectomy S/P wisdom tooth extraction S/P tubal ligation H/O oral surgery Family History Mother Bone cancer Hypertension Father Lymphoma Hypertension Chronic systolic congestive heart failure Aunt Ovarian cancer Grandmother (Maternal) Stroke Grandmother (Paternal) Myocardial infarction Grandfather (Paternal) Prostate cancer Brother No problems noted. Brother No problems noted. Brother No problems noted. Brother No problems noted. Brother No problems noted. Other No family history of adverse response to anesthesia Denies family history of Breast cancer Colorectal cancer Social History Smoking Status: Never smoker Second Hand Exposure: No; Do You Dip or Chew Tobacco: No; Hx Alcohol Use: No Hx Substance Use: No Preferred Language: [place] Communication Ability: Effective Visual Impairment: No Limitations Hearing Ability: Normal Wire Stockkeeper Required: No Beliefs That Will Affect Care: None marital status: Current Living Situation: Spouse current occupational status: retired How many Children do You have: 3 Feels Safe at Home: Yes Childhood Exposure to Second-Hand Smoke: No Diet: regular caffeine: Yes during the past year weight has: remained stable Dental Care, Regularly: Yes Physical Activity Frequency: Daily Seatbelt Use: always Sunscreen Use: No Assistive Devices: None Review of Systems A total of 10 systems reviewed and were otherwise negative Physical Exam Vital Signs Vital Signs - 24 hr 04/27/24 07:15 04/27/24 08:27 04/27/24 08:28 Temperature 36.3 C L Temperature Source Temporal Artery Scan Pulse Rate 81 68 Pulse Rate [Apical] Pulse Rhythm Regular Pulse Rhythm [Apical] Pulse Strength Normal Pulse Strength [Apical] Respiratory Rate 20 Respiratory Effort / Characteristics Non-Labored Spontaneous Respiratory Depth Normal Respiratory Pattern Regular Blood Pressure 137/91 Blood Pressure [Right Arm] Blood Pressure Mean 106 Blood Pressure Mean [Right Arm] Blood Pressure Position Sitting Blood Pressure Position [Right Arm] Pulse Oximetry 100 77 L Oxygen Delivery Method Room Air Nasal Cannula Oxygen Flow Rate 0 Sepsis Recent Fever Within 48 Hours No Sepsis New/Unexplained Change in Mental Status No Sepsis Action Taken by Nursing No Action Required Oxygen Flow Rate - Titration 2 Pulse Oximetry Post Tiitration 94 04/27/24 09:39 04/27/24 09:48 04/27/24 11:02 Temperature 36.6 C Temperature Source Oral Pulse Rate Pulse Rate [Apical] 57 L 60 Pulse Rhythm Pulse Rhythm [Apical] Regular Regular Pulse Strength Pulse Strength [Apical] Normal Normal Respiratory Rate 16 16 17 Respiratory Effort / Characteristics Non-Labored Spontaneous Non-Labored Spontaneous Respiratory Depth Normal Normal Respiratory Pattern Regular Regular Blood Pressure Blood Pressure [Right Arm] 136/67 120/64 Blood Pressure Mean Blood Pressure Mean [Right Arm] 90 82 Blood Pressure Position Blood Pressure Position [Right Arm] Semi-fowlers Semi-fowlers Pulse Oximetry 95 94 93 Oxygen Delivery Method Room Air Room Air Room Air Oxygen Flow Rate Sepsis Recent Fever Within 48 Hours Sepsis New/Unexplained Change in Mental Status Sepsis Action Taken by Nursing Oxygen Flow Rate - Titration Pulse Oximetry Post Tiitration 04/27/24 12:48 Temperature Temperature Source Pulse Rate 55 L Pulse Rate [Apical] Pulse Rhythm Pulse Rhythm [Apical] Pulse Strength Pulse Strength [Apical] Respiratory Rate Respiratory Effort / Characteristics Respiratory Depth Respiratory Pattern Blood Pressure Blood Pressure [Right Arm] Blood Pressure Mean Blood Pressure Mean [Right Arm] Blood Pressure Position Blood Pressure Position [Right Arm] Pulse Oximetry Oxygen Delivery Method Oxygen Flow Rate Sepsis Recent Fever Within 48 Hours Sepsis New/Unexplained Change in Mental Status Sepsis Action Taken by Nursing Oxygen Flow Rate - Titration Pulse Oximetry Post Tiitration VITAL SIGNS - Vital signs and nursing notes were reviewed. Stable and afebrile. GENERAL - 63-year-old female appearing her stated age who is in no acute distress. Communicates well with provider and answers questions appropriately. SKIN - Without rashes. HEAD - NC/AT. EYES - Sclera anicteric. NECK - Neck with FROM. No nuchal rigidity. LUNGS - Chest wall symmetric without accessory muscle use, intercostals retractions, or central cyanosis. Normal vesicular breath sounds CTA B/L. No wheezes, rales, or rhonchi appreciated. CARDIAC - RRR with S1/S2. No murmur, rubs, or gallops appreciated. ABDOMEN - Abdominal contour normal without pulsations or visible masses. BS normoactive all four quadrants. No tenderness, palpable masses, hepatosplenomegaly, or ascites noted. MUSCULOSKELETALthere is no reproducible tenderness overlying the L-spine or paraspinous musculature of the L-spine. EXTREMITIES - No clubbing or peripheral cyanosis. +5/5 strength noted in UE/LE bilaterally. NEUROLOGIC - Cranial nerves grossly intact. Sensory intact to light touch throughout. Patellar reflexes +2/4. PSYCH -alert, oriented and pleasant on exam Course Administered Medications Acetaminophen (Acetaminophen 325 Mg Tab) 650 mg PO Q4H PRN PRN Reason: pain/fever Stop: 05/27/24 19:43 Last Admin: 04/27/24 21:48 Dose: 650 mg Documented By: BRENNON Heparin Sodium (Porcine) (Heparin Sod 5,000 Unit/0.5 Ml Vial) 5,000 units SQ Q12 BRIDGETT Stop: 05/27/24 20:59 Last Admin: 04/27/24 20:27 Dose: Not Given Documented By: BRENNON Dexamethasone 6 mg/ Syringe 1.5 mls @ 1 mls/min IV Q24H BRIDGETT Stop: 05/27/24 13:59 Last Admin: 04/27/24 14:15 Dose: 1 mls/min Documented By: BOZENA Lorazepam (Lorazepam 1 Mg Tab) 1 mg PO HS PRN PRN Reason: anxiety Stop: 05/27/24 19:43 Last Admin: 04/27/24 21:50 Dose: 1 mg Documented By: BRENNON Melatonin (Melatonin 3 Mg Tab) 12 mg PO HS BRIDGETT Stop: 05/27/24 20:59 Last Admin: 04/27/24 21:49 Dose: 12 mg Documented By: BRENNON Methocarbamol (Methocarbamol 750 Mg Tablet) 750 mg PO TID PRN PRN Reason: Muscle Spasm Stop: 05/27/24 13:16 Last Admin: 04/27/24 14:15 Dose: 750 mg Documented By: BOZENA Miscellaneous (Remove Lidoderm Patch) 1 each N/A DAILY@2100 [facility] Stop: 05/27/24 20:59 Last Admin: 04/27/24 20:32 Dose: 1 each Documented By: BRENNON Discontinued Medications Hydromorphone HCl (Hydromorphone Inj 0.5 Mg/0.5 Ml Syr) 0.25 mg IV NOW STA Stop: 04/27/24 07:31 Last Admin: 04/27/24 07:40 Dose: 0.25 mg Documented By: INGRID Ketorolac Tromethamine (Ketorolac Tromethamine 15 Mg/Ml Vial) 10 mg IV NOW ONE Stop: 04/27/24 09:57 Last Admin: 04/27/24 10:09 Dose: 10 mg Documented By: INGRID Ketorolac Tromethamine (Ketorolac Tromethamine 15 Mg/Ml Vial) 10 mg IV NOW ONE Stop: 04/27/24 19:08 Last Admin: 04/27/24 19:17 Dose: 10 mg Documented By: GARETH Lidocaine (Lidocaine 5% 1 Patch) 1 patch TD NOW STA Stop: 04/27/24 08:33 Last Admin: 04/27/24 09:14 Dose: 1 patch Documented By: INGRID Ondansetron HCl (Ondansetron Inj 2 Mg/Ml 2 Ml Vial) 4 mg IV NOW STA Stop: 04/27/24 07:31 Last Admin: 04/27/24 07:40 Dose: 4 mg Documented By: INGRID Medical Decision Making Laboratory Data 04/27/24 07:35 04/27/24 07:35 Lab Results 04/27/24 Range/Units 07:35 WBC 5.62 (4.8-10.8) K/ul RBC 5.08 (4.20-5.40) M/uL Hgb 15.4 (12.0-16.0) g/dl Hct 44.9 (37.0-47.0) % MCV 88.4 (80.0-100.0) fL MCH 30.3 (25.0-34.0) pg MCHC 34.3 (32.0-36.0) g/dL RDW Std Deviation 42.0 (36.4-46.3) fL RDW Coeff of Mica 12.8 (11.5-14.5) % Plt Count 285 (130-400) K/uL MPV 10.0 (9.4-12.4) fL Immature Gran % (Auto) 0.2 % Neut % (Auto) 58.7 % Lymph % (Auto) 33.5 % [place] % (Auto) 6.0 % Eos % (Auto) 1.1 % Baso % (Auto) 0.5 % Neut # (Auto) 3.30 (1.40-6.50) K/uL Lymph # (Auto) 1.88 (1.20-3.40) K/uL [place] # (Auto) 0.34 (0.11-0.59) K/uL Eos # (Auto) 0.06 (0.00-0.50) K/uL Baso # (Auto) 0.03 (0.00-0.20) K/uL Immature Gran # (Auto) 0.01 (0.01-0.20) K/uL Sodium 140 (136-145) mmol/L Potassium 3.3 L (3.5-5.1) mmol/L Chloride 102 (98-107) mmol/L Carbon Dioxide 29 (21-32) mmol/L Anion Gap 9 (3-11) BUN 15 (6-23) mg/dl Creatinine 0.83 (0.6-1.2) mg/dl Est Cr Clr Drug Dosing 55.6 ml/min Est GFR ( Amer) 87.6 ml/min Est GFR (Non-Af Amer) 75.6 ml/min BUN/Creatinine Ratio 18.1 (10-20) Glucose 125 H (70-99(Fasting)) mg/dl Calcium 9.9 (8.6-10.3) mg/dl Total Bilirubin 0.9 (0.2-1.0) mg/dl AST 18 (13-39) U/L ALT 15 (7-52) U/L Alkaline Phosphatase 59 (34-104) U/L Total Protein 7.4 (6.0-8.3) gm/dl Albumin 4.5 (3.4-5.0) gm/dl Globulin 2.9 (2.5-4.0) gm/dl Albumin/Globulin Ratio 1.6 (0.9-2) Imaging Data Radiologist's Impression: Lumbar Spine MRI 04/27/24 09:56 MR lumbar spine wo con CLINICAL HISTORY: Low back pain, leg weakness TECHNIQUE: Multiplanar sequences through the lumbar spine were obtained, without intravenous contrast. Comparison: Comparison is made to CT abdomen pelvis 04/27/2024 FINDINGS: The alignment is anatomical. L1-L2: No significant abnormality. L2-L3: No significant abnormality. L3-L4: No significant abnormality. L4-L5: Broad-based posterior disc bulge is seen without significant canal or neural foraminal stenosis. L5-S1: Small posterior disc bulge without significant canal stenosis and minimal bilateral neural foraminal stenosis. The spinal ligaments are intact, without evidence of disruption or abnormal signal intensity. The spinal cord is normal in signal intensity and there is no evidence of cord contusion. There is no evidence of an extradural, intradural, extramedullary or intramedullary lesion. A left renal cyst is seen. IMPRESSION: Minimal degenerative change without to minimal bilateral neural foraminal stenosis. ACT 112: Negative or not required by law. Electronically signed by: Cedric Ruiz M.D. 04/27/2024 12:42 PM [address] AND PELVIS CT WITHOUT CONTRAST CT DOSE: 730.37 mGy.cm HISTORY: Acute low back pain Low back pain, wraps around to bilateral hips TECHNIQUE: Multiaxial CT images of the abdomen and pelvis were performed without contrast. A dose lowering technique was utilized adhering to the principles of ALARA. COMPARISON STUDY: CT 06/07/2023 FINDINGS: Mild bibasilar atelectasis. There is no free air. The unenhanced spleen, pancreas and adrenal glands are unremarkable. Scattered hepatic hypodensities appear similar from prior suggestive of cysts although many of which are too small to characterize. Mild hepatic steatosis. 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 Nonobstructing bilateral nephrolithiasis, left greater than right with A measuring up to approximately 4 mm bilaterally. No ureteral calculi or hydronephrosis identified. Decompressed bladder with wall thickening. Punctate mid uterine calcification. No adnexal mass lesions. Atherosclerosis of the aorta without aneurysm. Colonic diverticulosis without evidence of acute diverticulitis. Normal appendix. Mild jejunal wall thickening within the mid abdomen with trace adjacent inflammatory stranding. Tiny fat filled umbilical hernia. Unremarkable soft tissues. Mild annular disc bulging within the lower lumbar spine results in mild multilevel foraminal narrowing without high-grade central canal stenosis. There is no acute fracture identified. No suspicious bone lesions. IMPRESSION: 1. Nonobstructing bilateral nephrolithiasis. No ureteral calculi or hydronephrosis. 2. No bowel obstruction or pneumoperitoneum. 3. Mild mid abdominal jejunal wall thickening with trace adjacent inflammatory stranding suspicious for a mild enteritis. 4. Colonic diverticulosis. 5. Additional findings as above. ACT 112: Negative or not required by law. The above report was generated using voice recognition software. It may contain grammatical, syntax or spelling errors. Electronically signed by: Rikik Pruett M.D. 04/27/2024 8:47 AM MDM Narrative Patient was seen and evaluated as above in room A10. Review was performed of triage nursing notes and vital signs. I did review pertinent previous visits and patient history. After obtaining a thorough history and physical examination the above work up was performed. Patient presents to us today for assessment of low back pain that wraps around to the bilateral anterior hips. This began yesterday. The patient states that this began prior to her starting the colonoscopy prep. Pain does continue therefore prompting arrival here today. It is worse with certain movement and better with rest but even certain positions while trying to lay in bed or rest it is painful for the patient. She denies any abdominal pain. No history of spine surgery. No fevers. Options of care were discussed with the patient. IV access was established. She was medicated with IV Dilaudid for pain, IV Zofran for any nausea. Labs were drawn. Laboratory studies reveal no leukocytosis or concerning anemia. Mild hypokalemia 3.3. No evidence of kidney or liver failure emergently. Glucose 125. A CT scan was ordered of the abdomen/pelvis to further evaluate the patient's discomfort. The patient has a documented allergy of anaphylaxis to iodinated contrast media. Proceed with imaging without contrast at this time noting the reaction. Urinalysis reveals 1+ ketones, 1+ leukocytes, 11-20 white blood cells, 6-10 epithelial cells. No bacteria. She denies any dysuria, hematuria, urinary frequency or any other urinary symptom. The patient does inquire whether or not she can leave the department once the workup is complete to go over to have her colonoscopy as scheduled for today. We did notify the colonoscopy suite and they are able to accommodate depending on findings today. 0810 AM-patient returned from CT imaging, and upon assessment is resting comfortably. She notes that she is feeling improved compared to when she first presented here. 0825 AMpatient noted to be mildly hypoxic with low of 77. Patient immediately evaluated at bedside and was resting comfortably. She notes that she was trying not to move secondary to her back pain. When at rest her pain was much better. Patient did receive 0.25 mg of IV Dilaudid for her pain but that would have been at 0740. This may be the etiology of this mild hypoxia. Will hold off on additional opiate analgesic at this time trending patient's findings. When I went to bedside, ED RN simultaneously also presented to bedside and patient was started on nasal cannula oxygen. Patient immediately rebounded into the 90s on the supplemental o2. Patient does still have some pain therefore lidocaine patch was ordered. She did have acetaminophen earlier today. 0857 AM-patient was reevaluated and feeling overall better. I reviewed the CT imaging with the patient and printed a copy of the CT scan report and provided to the patient. Patient was able to transition from a 45 degree reclined position in the bed to sitting upright at the examination bedside. Patellar reflexes within normal limits at that time. Patient slow to do so but able to stand independently at bedside. She noted pain continues to feel overall well. We will gently down titrate supplemental O2/wean the patient to reassess O2. 0947 AM-I was notified by RN that when patient rests O2 sat trends to 88%. When fully awake is at 95%. Current pain 5/10 without moving but with movement is 8/10. The patient does not have any chest pain or shortness of breath. 0950 AM-patient reevaluated. Oxygen levels good. Patient again notes tremendous amount of discomfort when she attempts to move in the low back. She equates this pain to being higher than any kidney stone she has ever had. IV Toradol was ordered now that we will not be proceeding with the scheduled colonoscopy. I did order MRI of the L-spine as well. In reviewing options with the patient, she is concerned about going home noting her level of pain and concern the pain may return to the severe level that she experienced at home. In reviewing options, we will proceed with hospitalist consultation for possible inpatient management. MRI pending at this time. GCS: 15 In the evaluation and treatment of this patient the following differential diagnoses were entertained: UTI, pyelonephritis, colitis, diverticulitis, colonic perforation, lumbar radiculopathy, osteomyelitis, discitis, cauda equina syndrome, among others. Impression & Plan Low back pain Discharge Plan Visit Data Chief Complaint: Back Injury/Pain ED Provider: Yovani Curry ED Midlevel Provider: Narciso Olivares Discharge Problem: Low back pain Patient Disposition: Admitted As Inpatient Condition: Good Discharge Instructions Interventions: ED Discharge Assessment Last Done: 04/27/24 19:56
[2024-04-27] MEDS: HYDROmorphone INJ 0.5 MG/0.5 ML SYR IV STA (07:40)
[2024-04-27] MEDS: ONDANSETRON INJ 2 MG/ML 2 ML VIAL IV STA (07:40)
[2024-04-27 08:10] LABS: Basophils # (auto) 0.03 K/uL (0.00-0.20); Basophils % (auto) 0.5 %; Eosinophils # (auto) 0.06 K/uL (0.00-0.50); Eosinophils % (auto) 1.1 %; Hematocrit (blood only) 44.9 % (37.0-47.0); Hemoglobin 15.4 g/dl (12.0-16.0); Immature Granulocytes # (auto) 0.01 K/uL (0.01-0.20); Immature Granulocytes % (auto) 0.2 %; Lymphocytes # (auto) 1.88 K/uL (1.20-3.40); Lymphocytes % (auto) 33.5 %; Mean Corpuscular Hemoglobin 30.3 pg (25.0-34.0); Mean Corpuscular Hgb Conc 34.3 g/dL (32.0-36.0); Mean Corpuscular Volume 88.4 fL (80.0-100.0); Monocytes # (auto) 0.34 K/uL (0.11-0.59); Neutrophils % (auto) 58.7 %; Platelet Count 285 K/uL (130-400); RDW Coefficient of Variation 12.8 % (11.5-14.5); Red Blood Count 5.08 M/uL (4.20-5.40); White Blood Count 5.62 K/ul (4.8-10.8)
[2024-04-27 08:11] LABS: Appearance Urine Clear (Clear); Bacteria Urine Automated None Seen (None Seen); Bilirubin Urine Negative (Negative); Blood Urine Negative (Negative); Cast Urine Automated 0-2 /lpf (0-2); Color Urine Yellow; Glucose Urine UA Negative (Negative); Ketones Urine 1+ (Negative); Leukocyte Esterase Urine 1+ (Negative); Nitrite Urine Negative (Negative); Protein Urine Negative (Negative); RBC Urine Automated 0-2 /hpf (0-2); Specific Gravity Urine 1.021 (1.000-1.030); Urobilinogen Urine Negative (Negative); pH Urine 7.5 (4.5-7.5)
[2024-04-27 08:19] LABS: Albumin Globulin Ratio 1.6 (0.9-2); Albumin Level 4.5 gm/dl (3.4-5.0); BUN Creatinine Ratio 18.1 (10-20); Bilirubin,Total 0.9 mg/dl (0.2-1.0); Calcium 9.9 mg/dl (8.6-10.3); Creatinine Clr Calc Pharmacy 55.6 ml/min; Est GFR (African American) 87.6 ml/min; Est GFR (Non-African American) 75.6 ml/min; Globulin 2.9 gm/dl (2.5-4.0); Potassium 3.3 mmol/L (3.5-5.1); Total Protein 7.4 gm/dl (6.0-8.3)
--- NOTE | 2024-04-27 08:50 | CT Scan Report ---
ABDOMEN AND PELVIS CT WITHOUT CONTRAST CT DOSE: 730.37 mGy.cm HISTORY: Acute low back pain Low back pain, wraps around to bilateral hips TECHNIQUE: Multiaxial CT images of the abdomen and pelvis were performed without contrast. A dose lo wering technique was utilized adhering to the principles of ALARA. COMPARISON STUDY: CT 06/07/2023 FINDINGS: Mild bibasilar atelectasis. There is no free air. The unenhanced spleen, pancreas and adren al glands are unremarkable. Scattered hepatic hypodensities appear similar from prior suggestive of c ysts although many of which are too small to characterize. Mild hepatic steatosis. 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 Nonobstructing bilateral nephrolithiasis, lef t greater than right with A measuring up to approximately 4 mm bilaterally. No ureteral calculi or hy dronephrosis identified. Decompressed bladder with wall thickening. Punctate mid uterine calcificatio n. No adnexal mass lesions. Atherosclerosis of the aorta without aneurysm. Colonic diverticulosis without evidence of acute diverticulitis. Normal appendix. Mild jejunal wall t hickening within the mid abdomen with trace adjacent inflammatory stranding. Tiny fat filled umbilica l hernia. Unremarkable soft tissues. Mild annular disc bulging within the lower lumbar spine results in mild multilevel foraminal narrowing without high-grade central canal stenosis. There is no acute f racture identified. No suspicious bone lesions. IMPRESSION: 1. Nonobstructing bilateral nephrolithiasis. No ureteral calculi or hydronephrosis. 2. No bowel obstruction or pneumoperitoneum. 3. Mild mid abdominal jejunal wall thickening with trace adjacent inflammatory stranding suspicious f or a mild enteritis. 4. Colonic diverticulosis. 5. Additional findings as above. ACT 112: Negative or not required by law. The above report was generated using voice recognition software. It may contain grammatical, syntax o r spelling errors. Electronically signed by: Rikki Pruett M.D. 04/27/2024 8:47 AM
[2024-04-27] MEDS: LIDOCAINE 5% 1 PATCH TD STA (09:14)
[2024-04-27] MEDS: KETOROLAC TROMETHAMINE 15 MG/ML VIAL IV ONE ×2 (10:09→19:17)
--- NOTE | 2024-04-27 12:35 | History & Physical Report ---
Date of Service April 27, 2024 Assessment & Plan (1) Low back pain: Plan: Assessment: 1. Low back pain. Acute. Suspect musculoskeletal spasms. MRI of the lumbar spine is reassuring. There is no central spinal cord stenosis or impingement. There is a broad based bulging disc at L4-L5 without cord impingement. There is a small disc at L5/S1 with no cord/nerve impingement. Will give her some IV Decadron. Will also give her some Robaxin. Will consult PT. if the patient does not improve with conservative medical management, surgical consultation will be entertained. 2. History of hypothyroidism with a history of Naun's thyroiditis. Check a TSH in the morning continue same home dose at this time. 3. Anxiety. On as needed Ativan at home. 4. Vitamin D deficiency. 5. History of diverticulitis with no evidence of diverticulitis on CAT scan. 6. History of nephrolithiasis with bilateral kidney stones on CAT scan today which appear to be nonobstructive and small with no hydronephrosis or hydroureter. Do not suspect that this is the etiology of the patient's back pain 7. History of hypertension. Plan: As described above. Please refer to orders for further planning. Will keep the patient on telemetry at this time on an abundance of caution given her reaction to the Dilaudid. With the mild hypoxemia. With continuous pulse ox. History of Present Illness Chief Complaint: Back pain. Primary Care Provider: Dasia Medrano MD This is a pleasant 63-year-old female who has been prepping for colonoscopy this weekend. Her colonoscopy was to be this afternoon. However yesterday/Saturday morning patient got up and felt her normal self. Got ready for [facility]. When getting out of her vehicle at [facility] she experienced mid to low back pain which was pretty severe. She did not know she could get out of the car. In chart she had difficulty standing up from the [facility] pew. Her low back pains continue to worsen throughout the afternoon and evening yesterday. The patient was unable to go for her colonoscopy this morning and presented to the ER for further evaluation and treatment for severe back pain. CT of the abdomen pelvis were performed. Patient has some bilateral nephrolithiasis but no obstructive process. Some possible mild enteritis no diverticulitis. Laboratory studies were unremarkable. The patient received some IV Dilaudid and required some oxygen due to decreased respiratory drive. She also received some Toradol and lidocaine. And Zofran. Should be noted the patient denies any pain going down her legs. She does admit to bilateral "hip pain"/" groin pain". She denies any loss control of her bowel or bladder. MRI of the lumbar spine has been resulted. The patient has a broad-based disc at L4/L5. And a small disc at L5/S1. There is no cord impingement or nerve impingement at these levels. There are no stenosis. The patient does have increased muscle tone and spasm of the paravertebral muscles in the L3-S1 region. I suspect most of this is musculoskeletal. Will give her some IV Decadron and some oral Robaxin and consult PT. Allergies Allergy/AdvReac Type Severity Reaction Status Date / Time Iodinated Contrast Media Allergy Severe Anaphylaxis Verified 04/14/24 13:57 ciprofloxacin [From Cipro] AdvReac Mild N/V, GI Verified 04/14/24 13:57 pain, diarrhea Home Medications Medication Instructions Recorded Confirmed Type ascorbic acid (vitamin C) 500 mg 500 mg PO QAM 10/21/20 04/27/24 History tablet (Vitamin C) melatonin 10 mg tablet 20 mg PO HS 10/21/20 04/27/24 History zinc acetate 50 mg (zinc) capsule 50 mg PO DAILY 05/01/22 04/27/24 History cholecalciferol (vitamin D3) 125 125 mcg PO DAILY 02/25/23 04/27/24 History mcg (5,000 unit) capsule hydrochlorothiazide 25 mg tablet 25 mg PO QAM #120 tabs 05/21/23 04/27/24 Rx magnesium oxide 400 mg PO DAILY 06/07/23 04/27/24 History quercetin 500 mg capsule 500 mg PO QAM 07/23/23 04/27/24 History sumatriptan succinate 50 mg tablet See Rx Instructions PO .COMPLEX 07/23/23 04/27/24 Rx PRN migraine headache #30 tabs vitamin B complex 1 tab PO DAILY 07/23/23 04/27/24 History lorazepam 1 mg tablet 1 mg PO HS PRN anxiety #30 tabs 04/07/24 04/27/24 Rx peg 3350-electrolytes 236 240 ml PO Q10M #4,000 mL 04/16/24 04/27/24 Rx gram-22.74 gram-6.74 gram-5.86 gram solution (GaviLyte-G) Past Med/Surg History Problem List (Updated 04/27/24 @ 08:25 by Narciso Olivares PA-C) Low back pain (Acute) Encounter for pre-operative examination Osteopenia after menopause Asymptomatic menopausal state Post-menopausal Thyroid nodule Naun's thyroiditis Abnormal thyroid blood test Vulvitis Small fiber neuropathy Anxiety (Chronic) Hypertension (Chronic) Migraine (Chronic) Medical History Abnormal thyroid blood test denies any thyroid issues or nodules, states was misdiagnosed w/ thyroid disease Osteopenia Hx of diverticulitis of colon History of COVID-19 10/31/20 (preop test COVID +/asymptomatic), subsequent COVID test 11/25/20 negative Small fiber neuropathy History of pancreatitis idiopathic; 30 years ago History of nephrolithiasis History of migraine Restless leg syndrome Sepsis hx- r/t kidney stone Ureterolithiasis hx External hemorrhoids Surgical History S/P ureteral stent placement History of lithotripsy Right ESWL (12/02/20): [place]4 [place] [facility] [place] History of colonoscopy S/P cystoscopy with ureteral stent placement cystoscopy, stent (09/21/20) S/P tonsillectomy S/P wisdom tooth extraction S/P tubal ligation H/O oral surgery Family History Mother Bone cancer Hypertension Father Lymphoma Hypertension Chronic systolic congestive heart failure Aunt Ovarian cancer Grandmother (Maternal) Stroke Grandmother (Paternal) Myocardial infarction Grandfather (Paternal) Prostate cancer Brother No problems noted. Brother No problems noted. Brother No problems noted. Brother No problems noted. Brother No problems noted. 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 Beliefs That Will Affect Care: None marital status: Current Living Situation: Spouse current occupational status: retired How many Children do You have: 3 Feels Safe at Home: Yes Childhood Exposure to Second-Hand Smoke: No Diet: regular caffeine: Yes during the past year weight has: remained stable Dental Care, Regularly: Yes Physical Activity Frequency: Daily Seatbelt Use: always Sunscreen Use: No Assistive Devices: None Review of Systems Review of Systems: A 10 point review of system was obtained and unless otherwise stated here or in history of present illness are negative and noncontributory to chief complaint. Physical Exam Physical Exam: In General: In general this is a pleasant 63-year-old female who is alert and oriented x 3 at the time of my exam. She is accompanied by her at the time of my exam. She interacts appropriately and pleasantly. She is comfortable with laying flat but with movement she has significant low back pain. HEENT: Normocephalic atraumatic pupils are equal round and reactive to light bilaterally. No scleral icterus no conjunctival injection external auditory canals are patent septum is in the midline nose is without discharge oral mucosa is pink and moist without lesion. NECK: Supple no rigidity no lymphadenopathy no thyromegaly no carotid bruits no JVD no masses. HEART: Regular rate and rhythm I do not appreciate any ectopy or rub. No murmur. LUNGS: Clear to auscultation bilaterally and anteriorly with no evidence of adventitious sounds/wheezes rales or rhonchi. ABDOMEN: Soft nontender, no rebound, no peritoneal signs, positive bowel sounds, no appreciable organomegaly. EXTREMITIES: Intact, no peripheral cyanosis, clubbing or edema. Strength is 5 out of 5 in extremities x4, no pathological reflexes. Straight leg testing is equivocal due to her spasms she is having pain therefore unable to complete adequately. NEUROLOGICAL: Cranial nerves II through XII are grossly intact with no focal deficit elicited upon examination. No tremor. No loss of sensation to fine pinprick. Musculoskeletal: Patient has increased muscle tone in the paravertebral muscles bilaterally with increased tenderness with palpation and spasm. In the regions of approximately L2/3 through S1. There is no midline tenderness. Results & Data Results & Data Vital Signs (Past 12 Hours) Vital Signs Temp Pulse Pulse Resp BP BP Pulse Ox 04/27/24 11:02 60 17 120/64 93 04/27/24 09:48 36.6 C 57 L 16 136/67 94 04/27/24 09:39 16 95 04/27/24 08:28 77 L 04/27/24 08:27 68 04/27/24 07:15 36.3 C L 81 20 137/91 100 O2 Del Method O2 Flow Rate 04/27/24 11:02 Room Air 04/27/24 09:48 Room Air 04/27/24 09:39 Room Air 04/27/24 08:28 Nasal Cannula 0 04/27/24 08:27 04/27/24 07:15 Room Air Code Status & VTE Plan Code Status Full code. I personally discussed with patient today at the bedside. PG Care Time/CCT Total # of Minutes Spent Total Time Spent with Patient: Total time spent is greater than 50% in coordination of care (as documented) at patient's floor/unit and/or counseling patient: Coding Level of Care Code 37273 INT INP/OBS CARE 3/75MIN Diagnoses Low back pain M54.50
--- NOTE | 2024-04-27 12:44 | Magnetic Resonance Report ---
MR lumbar spine wo con CLINICAL HISTORY: Low back pain, leg weakness TECHNIQUE: Multiplanar sequences through the lumbar spine were obtained, without intravenous contrast . Comparison: Comparison is made to CT abdomen pelvis 04/27/2024 FINDINGS: The alignment is anatomical. L1-L2: No significant abnormality. L2-L3: No significant abnormality. L3-L4: No significant abnormality. L4-L5: Broad-based posterior disc bulge is seen without significant canal or neural foraminal stenosi s. L5-S1: Small posterior disc bulge without significant canal stenosis and minimal bilateral neural for aminal stenosis. The spinal ligaments are intact, without evidence of disruption or abnormal signal intensity. The spi nal cord is normal in signal intensity and there is no evidence of cord contusion. There is no eviden ce of an extradural, intradural, extramedullary or intramedullary lesion. A left renal cyst is seen. IMPRESSION: Minimal degenerative change without to minimal bilateral neural foraminal stenosis. ACT 112: Negative or not required by law. Electronically signed by: Cedric Ruiz M.D. 04/27/2024 12:42 PM
[2024-04-27] MEDS: METHOCARBAMOL 750 MG TABLET PO PRN (14:15)
[2024-04-27] MEDS: dexAMETHasone 6 MG in SYRINGE 0 ML IV SCH (14:15)
[2024-04-27] MEDS: HEPARIN SOD 5,000 UNIT/0.5 ML VIAL SQ SCH (20:27)
[2024-04-27] MEDS: ACETAMINOPHEN 325 MG TAB PO PRN (21:48)
[2024-04-27] MEDS: MELATONIN 3 MG TAB PO SCH (21:49)
[2024-04-27] MEDS: LORazepam 1 MG TAB PO PRN (21:50)
[2024-04-28 06:35] LABS: Albumin Globulin Ratio 1.6 (0.9-2); Albumin Level 3.9 gm/dl (3.4-5.0); BUN Creatinine Ratio 31.7 (10-20); Bilirubin,Total 0.6 mg/dl (0.2-1.0); Calcium 9.6 mg/dl (8.6-10.3); Chol HDL Ratio 4.6 (0-5); Creatinine Clr Calc Pharmacy 56.3 ml/min; Est GFR (African American) 88.9 ml/min; Est GFR (Non-African American) 76.7 ml/min; Globulin 2.5 gm/dl (2.5-4.0); Potassium 3.5 mmol/L (3.5-5.1); Total Protein 6.4 gm/dl (6.0-8.3)
[2024-04-28 06:50] LABS: Thyroid Stimulating Hormone 0.388 uIu/ml (0.300-4.500)
[2024-04-28 07:13] LABS: Basophils # (auto) 0.01 K/uL (0.00-0.20); Basophils % (auto) 0.1 %; Hematocrit (blood only) 40.3 % (37.0-47.0); Hemoglobin 13.5 g/dl (12.0-16.0); Immature Granulocytes # (auto) 0.02 K/uL (0.01-0.20); Immature Granulocytes % (auto) 0.3 %; Lymphocytes # (auto) 0.94 K/uL (1.20-3.40); Lymphocytes % (auto) 12.8 %; Mean Corpuscular Hemoglobin 30.3 pg (25.0-34.0); Mean Corpuscular Hgb Conc 33.5 g/dL (32.0-36.0); Mean Corpuscular Volume 90.6 fL (80.0-100.0); Mean Platelet Volume 10.1 fL (9.4-12.4); Monocytes # (auto) 0.42 K/uL (0.11-0.59); Monocytes % (auto) 5.7 %; Neutrophils # (auto) 5.94 K/uL (1.40-6.50); Neutrophils % (auto) 81.1 %; Platelet Count 254 K/uL (130-400); RDW Coefficient of Variation 13.1 % (11.5-14.5); RDW Standard Deviation 43.5 fL (36.4-46.3); Red Blood Count 4.45 M/uL (4.20-5.40); White Blood Count 7.33 K/ul (4.8-10.8)
[2024-04-28] MEDS: CHOLECALCIFEROL 125 MCG (5,000 UNITS) TAB PO SCH (07:35)
[2024-04-28] MEDS: MAGNESIUM OXIDE 400 MG TAB PO SCH (07:35)
[2024-04-28] MEDS: hydroCHLOROthiazide 25 MG TAB PO SCH (07:35)
--- NOTE | 2024-04-28 08:08 | Hospitalist Progress Note ---
Date of Service April 28, 2024 Assessment & Plan (1) Low back pain: Plan: Penelope Rapp is a 63 year old female with a PMHx of Naun's thyroiditis, osteopenia, diverticulitis, pancreatitis, nephrolithiasis, and migraines who is being evaluated for severe sudden onset mid-low back pain since Saturday (04/26). She describes this pain as bilateral "hip pain" and "groin pain." There is no pain radiating down her legs. She denies any loss control of her bowel or bladder. Low back pain, piriformis strain - acute -Likely lumbar muscle strain, no hx/exam features of radiculopathy. No red flags (no trauma, recent steroid use, malignancy, constitutional sx, GI/ sx) -MRI L Spine: There is a broad based bulging disc at L4-L5 without cord impingement. There is a small disc at L5/S1 with no cord/nerve impingement. -s/p (medications/intervention): IV Dilaudid, Toradol, lidocaine patch, IV Decadron, Robaxin -Consulted PT, appreciate recommendations * Activity as tolerated, avoid best rest * Consider returning to massage therapy * Continue Voltaren Gel 3-4 times a day. * Prescribed 1 week of Ativan for muscle relaxation. * If pain persists, f/u outpatient with Doctor of Osteopathic Medicine who is able to perform osteopathic manipulative therapy (OMT) History of hypothyroidism with a history of Naun's thyroiditis -TSH: 0.388 * Follow up with PCP Anxiety/Insomnia * Continue Ativan * Consider following up with PCP/prescriber for alterative medication options Diverticulitis -No evidence of diverticulitis on CT scan * F/U with PCP outpatient Nephrolithiasis -Incidental finding on CT scan. Nonobstructive and small with no hydronephrosis or hydroureter. -Unlikely to be the origin of the patient's back pain Elevated Cholesterol -Cholesterol 223. Triglycerides, LDL, VLDL, HDL wnl. * Follow up with PCP Hypertension * Continue home HCTZ 25 mg * Follow up with PCP FEN: Regular Code status: full code DVT ppx: Heparin PT/OT: Consulted PT Dispo: med/surg Admission and Anticipated Discharge Date Admission Date: April 27, 2024 Subjective The patient states that her back pain is improved from yesterday and that she would like to be discharged. She denies pain radiating down her legs. She reports that she has been "overdoing it" with lifting heavy objects for a few weeks. She has been using a heating pad for multiple hours daily. She has had chronic idiopathic bilateral radiculopathy for 11 years, which onset suddenly and has no known origin. She has taken up to 1800 mg of gabapentin in the past with no benefit. She has also gotten massage therapy in the past with benefit. It has been a few months since her last massage. She reports using Ativan for sleep. Review of Systems 2 Review of Systems: See HPI, otherwise negative Physical Exam 2 Constitutional: Constitutional: Well-appearing, no acute distress HEENT: NCAT, no conjunctival injection, no scleral icterus CV: Regular rate and rhythm, no murmur appreciated, extremities well-perfused, no LE edema Resp: CTABL, no wheezes/rales/rhonchi appreciated,no increased work of breathing GI: Soft, nondistended, nontender, BS normoactive MSK: no gross deformities appreciated. No TTP of the SI joint. TTP of the right greater trochanter, lumbar paraspinal muscles bilaterally. Decreased ROM of forward flexion, extension, and lateral bending. Patellar and Achilles 1+ on right side, 2+ on left. Strength 4/5 on right hip flexors secondary to pain. 5/5 in other major muscle groups bilaterally. Skin: warm, dry, no rash appreciated Neuro: alert, oriented, no focal neurologic deficits appreciated Gait: Posture is normal. Gait is steady but cautious with normal steps, base, arm swing, and turning. Results & Data Results & Data Vital Signs (Past 12 Hours) Vital Signs Temp Pulse Resp BP Pulse Ox O2 Del Method 04/28/24 07:48 60 18 114/72 04/28/24 07:40 97.9 F 68 16 94/64 L 96 Room Air 04/27/24 20:09 98.1 F 75 14 144/81 H 95 Room Air Laboratory Results 04/28/24 05:44 04/28/24 05:44 Diagnostic Findings MR lumbar spine wo con L4-L5: Broad-based posterior disc bulge is seen without significant canal or neural foraminal stenosis. L5-S1: Small posterior disc bulge without significant canal stenosis and minimal bilateral neural foraminal stenosis. Minimal degenerative change without to minimal bilateral neural foraminal stenosis. ABDOMEN AND PELVIS CT WITHOUT CONTRAST 1. Nonobstructing bilateral nephrolithiasis. No ureteral calculi or hydronephrosis. 2. No bowel obstruction or pneumoperitoneum. 3. Mild mid abdominal jejunal wall thickening with trace adjacent inflammatory stranding suspicious for a mild enteritis. 4. Colonic diverticulosis 5. Additional findings as above. Medications Administered Acetaminophen (Acetaminophen 325 Mg Tab) 650 mg PO Q4H PRN PRN Reason: pain/fever Stop: 05/27/24 19:43 Last Admin: 04/28/24 11:04 Dose: 650 mg Documented By: Admin: 04/28/24 03:58 Dose: 650 mg Documented By: Admin: 04/27/24 21:48 Dose: 650 mg Documented By: TKB Heparin Sodium (Porcine) (Heparin Sod 5,000 Unit/0.5 Ml Vial) 5,000 units SQ Q12 [facility] Stop: 05/27/24 20:59 Last Admin: 04/28/24 07:35 Dose: Not Given Documented By: Admin: 04/27/24 20:27 Dose: Not Given Documented By: TKB Hydrochlorothiazide (Hydrochlorothiazide 25 Mg Tab) 25 mg PO [facility] Stop: 05/28/24 08:59 Last Admin: 04/28/24 07:35 Dose: 25 mg Documented By: EW Dexamethasone 6 mg/ Syringe 1.5 mls @ 1 mls/min IV Q24H [facility] Stop: 05/27/24 13:59 Last Admin: 04/27/24 14:15 Dose: 1 mls/min Documented By: HS Lorazepam (Lorazepam 1 Mg Tab) 1 mg PO HS PRN PRN Reason: anxiety Stop: 05/27/24 19:43 Last Admin: 04/27/24 21:50 Dose: 1 mg Documented By: TKB Magnesium Oxide (Magnesium Oxide 400 Mg Tab) 400 mg PO DAILY [facility] Stop: 05/28/24 08:59 Last Admin: 04/28/24 07:35 Dose: 400 mg Documented By: EW Melatonin (Melatonin 3 Mg Tab) 12 mg PO HS [facility] Stop: 05/27/24 20:59 Last Admin: 04/27/24 21:49 Dose: 12 mg Documented By: TKB Methocarbamol (Methocarbamol 750 Mg Tablet) 750 mg PO TID PRN PRN Reason: Muscle Spasm Stop: 05/27/24 13:16 Last Admin: 04/28/24 07:34 Dose: 750 mg Documented By: Admin: 04/27/24 23:07 Dose: 750 mg Documented By: Admin: 04/27/24 14:15 Dose: 750 mg Documented By: BOZENA Miscellaneous (Remove Lidoderm Patch) 1 each N/A DAILY@2100 [facility] Stop: 05/27/24 20:59 Last Admin: 04/27/24 20:32 Dose: 1 each Documented By: BRENNON Vitamin D (Cholecalciferol 125 Mcg (5,000 Units) Tab) 125 mcg PO DAILY [facility] Stop: 05/28/24 08:59 Last Admin: 04/28/24 07:35 Dose: 125 mcg Documented By: JUVENAL
--- NOTE | 2024-04-28 13:27 | Discharge Summary ---
Date of Service April 28, 2024 Admission HPI Per Admitting Provider This is a pleasant 63-year-old female who has been prepping for colonoscopy this weekend. Her colonoscopy was to be this afternoon. However yesterday/Saturday morning patient got up and felt her normal self. Got ready for shinto. When getting out of her vehicle at shinto she experienced mid to low back pain which was pretty severe. She did not know she could get out of the car. In chart she had difficulty standing up from the shinto pew. Her low back pains continue to worsen throughout the afternoon and evening yesterday. The patient was unable to go for her colonoscopy this morning and presented to the ER for further evaluation and treatment for severe back pain. CT of the abdomen pelvis were performed. Patient has some bilateral nephrolithiasis but no obstructive process. Some possible mild enteritis no diverticulitis. Laboratory studies were unremarkable. The patient received some IV Dilaudid and required some oxygen due to decreased respiratory drive. She also received some Toradol and lidocaine. And Zofran. Should be noted the patient denies any pain going down her legs. She does admit to bilateral "hip pain"/" groin pain". She denies any loss control of her bowel or bladder. MRI of the lumbar spine has been resulted. The patient has a broad-based disc at L4/L5. And a small disc at L5/S1. There is no cord impingement or nerve impingement at these levels. There are no stenosis. The patient does have increased muscle tone and spasm of the paravertebral muscles in the L3-S1 region. I suspect most of this is musculoskeletal. Will give her some IV Decadron and some oral Robaxin and consult PT. Admission Exam Per Admitting Provider In General: In general this is a pleasant 63-year-old female who is alert and oriented x 3 at the time of my exam. She is accompanied by her at the time of my exam. She interacts appropriately and pleasantly. She is comfortable with laying flat but with movement she has significant low back pain. HEENT: Normocephalic atraumatic pupils are equal round and reactive to light bilaterally. No scleral icterus no conjunctival injection external auditory canals are patent septum is in the midline nose is without discharge oral mucosa is pink and moist without lesion. NECK: Supple no rigidity no lymphadenopathy no thyromegaly no carotid bruits no JVD no masses. HEART: Regular rate and rhythm I do not appreciate any ectopy or rub. No murmur. LUNGS: Clear to auscultation bilaterally and anteriorly with no evidence of adventitious sounds/wheezes rales or rhonchi. ABDOMEN: Soft nontender, no rebound, no peritoneal signs, positive bowel sounds, no appreciable organomegaly. EXTREMITIES: Intact, no peripheral cyanosis, clubbing or edema. Strength is 5 out of 5 in extremities x4, no pathological reflexes. Straight leg testing is equivocal due to her spasms she is having pain therefore unable to complete adequately. NEUROLOGICAL: Cranial nerves II through XII are grossly intact with no focal deficit elicited upon examination. No tremor. No loss of sensation to fine pinprick. Musculoskeletal: Patient has increased muscle tone in the paravertebral muscles bilaterally with increased tenderness with palpation and spasm. In the regions of approximately L2/3 through S1. There is no midline tenderness. Principal Diagnosis Low back pain, piriformis strain Discharge Exam Constitutional: Well-appearing, no acute distress HEENT: NCAT, no conjunctival injection, no scleral icterus CV: Regular rate and rhythm, no murmur appreciated, extremities well-perfused, no LE edema Resp: CTABL, no wheezes/rales/rhonchi appreciated,no increased work of breathing GI: Soft, nondistended, nontender, BS normoactive MSK: no gross deformities appreciated. No TTP of the SI joint. TTP of the right greater trochanter, lumbar paraspinal muscles bilaterally. Decreased ROM of forward flexion, extension, and lateral bending. Patellar and Achilles 1+ on right side, 2+ on left. Strength 4/5 on right hip flexors secondary to pain. 5/5 in other major muscle groups bilaterally. Skin: warm, dry, no rash appreciated Neuro: alert, oriented, no focal neurologic deficits appreciated Gait: Posture is normal. Gait is steady but cautious with normal steps, base, arm swing, and turning. Discharge Data Allergies Allergy/AdvReac Type Severity Reaction Status Date / Time Iodinated Contrast Media Allergy Severe Anaphylaxis Verified 04/14/24 13:57 ciprofloxacin [From Cipro] AdvReac Mild N/V, GI Verified 04/14/24 13:57 pain, diarrhea Consultations 04/27/24 10:00 ED Decision to Admit Stat Ordered Studies 04/27/24 07:28 CT abd pelvis wo con Stat 04/27/24 09:56 MR lumbar spine wo con Stat Hospital Course (1) Low back pain: Penelope Rapp is a 63 year old female with a PMHx of Naun's thyroiditis, osteopenia, diverticulitis, pancreatitis, nephrolithiasis, and migraines who is being evaluated for severe sudden onset mid-low back pain since Saturday (04/26). She describes this pain as bilateral "hip pain" and "groin pain." There is no pain radiating down her legs. She denies any loss control of her bowel or bladder. Low back pain, piriformis strain - acute -Likely lumbar muscle strain, no hx/exam features of radiculopathy. No red flags (no trauma, recent steroid use, malignancy, constitutional sx, GI/ sx) -MRI L Spine: There is a broad based bulging disc at L4-L5 without cord impingement. There is a small disc at L5/S1 with no cord/nerve impingement. -s/p (medications/intervention): IV Dilaudid, Toradol, lidocaine patch, IV Decadron, Robaxin -Consulted PT, appreciate recommendations * Activity as tolerated, avoid best rest * Consider returning to massage therapy * Continue Voltaren Gel 3-4 times a day. * Prescribed 1 week of Ativan for muscle relaxation. * If pain persists, f/u outpatient with Doctor of Osteopathic Medicine who is ab le to perform osteopathic manipulative therapy (OMT) History of hypothyroidism with a history of Naun's thyroiditis -TSH: 0.388 * Follow up with PCP Anxiety/Insomnia * Continue Ativan * Consider following up with PCP/prescriber for alterative medication options Diverticulitis -No evidence of diverticulitis on CT scan * F/U with PCP outpatient Nephrolithiasis -Incidental finding on CT scan. Nonobstructive and small with no hydronephrosis or hydroureter. -Unlikely to be the origin of the patient's back pain Elevated Cholesterol -Cholesterol 223. Triglycerides, LDL, VLDL, HDL wnl. * Follow up with PCP Hypertension * Continue home HCTZ 25 mg * Follow up with PCP FEN: Regular Code status: full code DVT ppx: Heparin PT/OT: Consulted PT Dispo: med/surg Total Time Total Time Spent Total Time Spent (In Minutes): >30 Discharge Plan Discharge Items Patient Disposition: Home - Self-Care Reason For Visit: back pain, muscle spasm Discharge Diagnosis: back pain (see below) Condition on Discharge: Good Activity: Resume your previous activity Non-emergency contact: Primary Care Provider Call non-emergency contact if: you have any medication questions Follow-up/Referrals: Dasia Medrano MD [Primary Care Provider] - 05/04/24 1:40 pm Diet: Regular Addtl Attending Provider Instructions: Back pain - as we discussed, your back pain appears to be entirely muscular (will give more detail below)but to be clear, it absolutely does not at all appear to be bone/disc related (saying the same thing 2 different ways: Your MRI findings do not at all correlate with your symptoms, and also your MRI findings are so mild I would be surprised if they would cause anyone pain/symptoms) - the musculoskeletal pattern you are showing is extremely commonit appears that your right piriformis muscle is the "Bois D Arc" that got tight, and from there everything else really spiraled to creating the pain. - Our piriformis muscle attaches from R hip (greater trochanter) to R tailbone (sacrum)and when the muscle goes into spasm, the nerves in the muscle that tell it how long it is supposed to be "get confused" and "decide" that the distance between the 2 bones is shorter than it actually is. When this happens with piriformis, it tends to pull our sacrum (tailbone) deep on the same side as the tight muscleand then this creates low back pain by "jamming up" the sacroiliac joint on the same side, and "gapping" the sacroiliac joint on the opposite side. While the main problem is actually the piriformis muscle (an hour but) most people truly feel it much more as a low back pain that is in the sacroiliac joint region, or lumbar regioneven though that is not really where the main problem lies. - Fortunately you are already getting better - the mainstay of treating tight muscles is to get them more appropriately loose. We did a little bit of work on the muscles while you are in the hospital, and taught you how to do stretching specific to your piriformis muscle. With the stretching, I would have you sit with your back against something firm (a wall, the head of the bed) and bring your right knee towards your chest. Then I would have you push your knee across your body (from right to left) while pushing back against your hand with your knee (pushing your knee from left to right). Hold this contraction for about 5 seconds, and then as soon as the contraction is done, you should stretch your leg a little bit more by bringing your knee further to your chest and a little bit further across your body. Do this 35 times first thing in the morning, and then again later in the day. (When you are going to the [employer] game, given that car rides are notorious for stiffening tight muscles, I would probably do this in the car seat about every 30 minutes) - as we discussed, medications usually do not help with this kind of pain a whole lot, you certainly could safely "lynette" with Tylenol or ibuprofenand if it seems like it is helping it would be reasonable to take for a week or 2, but in my experience those kind of medicines do not really do a whole lot. - As far as muscle relaxants, again they are not amazingly helpful, but can play a role. As we discussed the benzodiazepine type medicines (such as the Ativan that you take at bedtime) tend to actually do a better job acting as a muscle relaxant than medications that are "billed" as being an actual muscle relaxant. Because of this, I have sent in a prescription for an additional 7 Ativan tablets to take as a muscle relaxant (not for sleep or anxiety). Obviously they can be a little bit sedating, but should be more predictably so than some of the other muscle relaxants that can be quite sedating and you are not used to taking. Of course, do not drive after taking the Ativan. - I would also recommend putting topical diclofenac (Voltaren gel) across your right piriformis muscle (basically from your hip bone across your buttock to your tailbone) 34 times a day. As we discussed, ideally Voltaren gel is used 4 times a day on a scheduled basis, and when used that way, I see probably 80% of people start to get a pretty noticeable benefit by day 23. Most people who "fail" with Voltaren gel use it a few times and then quitbut they usually quit using it before it has a chance to truly "kick in". Obviously, remembering to use it 4 times a day is fairly difficult, I have found with my 's biomechanical and lupus related pain even if we managed to get it on 3 times a day usually by day 23 it is starting to help. --> If this becomes an ongoing problem, "kicking it further up the ladder" could start as simple as having her massage therapist work on your piriformis region/pelvic stabilizer muscles; at the same time, if you are truly having biomechanical problems and it is interfering with what you want to do with your life, and the massage therapy is not helping enough, Dr. Ketan Larose is part of Dr. Medrano's group, he is just over at the [email or web address] , [facility] offices, and does a lot of manipulative medicine (OMT) as part of his regular practice. Hopefully will need to do either of these "treatment escalations" but that way if you do, you have a good roadmap. Pending Studies at Discharge: No Stand-Alone Forms: My [facility] [employer], Smoking Cessation Medications and DC Order Prescriptions: New lorazepam [Ativan] 1 mg tablet 1 mg PO DAILY PRN (Reason: muscle spasm) Qty: 7 0RF Rx Instructions: utilizing as muscle relaxant since benzos tend to have good efficacy and she is already on it HS (that way less polypharmacy risk of adding a "true" muscle relaxant) thanks! Continued hydrochlorothiazide 25 mg tablet 25 mg PO QAM Qty: 120 1RF lorazepam 1 mg tablet 1 mg PO HS PRN (Reason: anxiety) Qty: 30 0RF peg 3350-electrolytes [GaviLyte-G] [id number] -5.86 gram recon soln 240 ml PO Q10M Qty: 4000 0RF Rx Instructions: until fecal effluent is clear zinc acetate 50 mg (zinc) capsule 50 mg PO DAILY cholecalciferol (vitamin D3) 125 mcg (5,000 unit) capsule 125 mcg PO DAILY quercetin 500 mg capsule 500 mg PO QAM vitamin B complex Tablet 1 tab PO DAILY sumatriptan succinate 50 mg tablet See Rx Instructions PO .COMPLEX PRN (Reason: migraine headache) Qty: 30 1RF Rx Instructions: take 1 tab at onset of headache; if no relief may repeat 1 tab after at least 2 hrs; max = 4 tabs/24 hr PO PRN; ascorbic acid (vitamin C) [Vitamin C] 500 mg Tablet 500 mg PO QAM melatonin 10 mg Tablet 20 mg PO HS magnesium oxide 400 mg magnesium Tablet 400 mg PO DAILY Discharge Orders: Discharge Order (Routine); Ordered 04/28/24 Ordered By: Yovani Pineda Admission Data Admit Date/Time: 04/27/24 13:17 Attending Provider: Yovani Pineda Admit Provider: Farhat Arriaza Primary Care Provider: Dasia Medrano Other Providers: Farhat Arriaza Other Interventions: Discharge Summary Assessment (RN) Last Done: 04/28/24 15:00 Supervising Physician Co-Signing Physician Notes I personally examined the patient and verified all webster points of history and exam, discussed case, and agree with decision making with D D'Annette MS4 back pain feeling better enough to get out of the hospital. Back pain does still persist rather significantly though. Vitals noted, in general she is awake and alert pleasant no distress. HEENT normocephalic atraumatic mucous membranes moist. Breathing unlabored no accessory muscle use good effort. Skin without rashes pallor or icterus. Neuro without focal deficits. Osteopathic/musculoskeletal exam shows her right piriformis region musculature to be high tone, tender, decreased range of motioninhibitory pressure and post isometric relaxation doneimproved. Patient tolerated well. Back painagree musculoskeletalsafe/stable for home. Voltaren gel across her right piriformis region 4 times daily; Ativan daily as needed muscle relaxation in addition to her at bedtime that she has been taking chronically. Taught stretches. Outpatient massage or even escalate to OMT if needed. Somatic dysfunction pelvic regionOMT as above. Patient tolerated well.
--- NOTE | 2024-04-28 20:07 | Billing Data ---
Date of Service April 28, 2024 Coding Level of Care Code 93096 INP/OBS DISCH >30 MIN
--- NOTE | 2024-04-28 20:08 | Hospitalist Progress Note ---
Date of Service April 28, 2024 Assessment & Plan Admission and Anticipated Discharge Date Admission Date: April 27, 2024 Results & Data Results & Data Vital Signs (Past 12 Hours) Vital Signs Temp Pulse Pulse Resp BP Pulse Ox 04/28/24 15:00 97.9 F 73 60 18 114/72 96 PG Care Time/CCT Total # of Minutes Spent Total Time Spent with Patient: Total time spent is greater than 50% in coordination of care (as documented) at patient's floor/unit and/or counseling patient: Coding Level of Care Code None Comment 33833 OMT 1-2 body regions
== END 2024-04-28 15:19 | disposition home or self-care (01) | DRG 552 ==
LOC: ED 07:10 → EDINP 13:17 → SUATTDRO 13:17 → INTOOBSV 13:17 → 3E 19:56